=== PATIENT | female | born 1980 ===

== ENCOUNTER 2020-09-02 15:20 | Emergency (ER) | payer MEDICAID, SELFPAY ==
--- NOTE | ~2020-09-02 | XR_ITS ---
EXAMINATION: XR CHEST CLINICAL INFORMATION: Cough COMPARISON: 10/20/2017 TECHNIQUE: Frontal view of the chest was obtained. FINDINGS: Normal cardiac and mediastinal silhouette. Lungs are relatively symmetric expanded. No lobar consolidation. No effusion, edema or pneumothorax. No acute osseous abnormality. XR/XR chest 1V IMPRESSION: No evidence of acute disease.
[2020-09-02 15:38] VITALS: BP 120/82; PULSE 70; RESP 16; TEMP 37.2; O2SAT 98; BMI 37.8
--- NOTE | 2020-09-02 15:49 | ED.GENADULT ---
HPI - General Adult General Chief complaint: General Medical Stated complaint: Chest pain/Sore throat/Loose stools Time Seen by Provider: 09/02/20 15:44 Source: patient Mode of arrival: ambulatory Limitations: no limitations History of Present Illness HPI narrative: 40-year-old female here with PMH anxiety, depression, anemia with complaints of sore throat, dry cough, chest tightness, upper abdominal pain since yesterday. No nausea, vomiting, diarrhea, fevers, chills, shortness of breath, leg pain or swelling. Related Data Allergies Allergy/AdvReac Type Severity Reaction Status Date / Time No Known Allergies Allergy Verified 09/02/20 15:38 [No Known Allergies*] Review of Systems Review of Systems: Yes all other systems are reviewed and are negative Constitutional: Constitutional: Reports no additional constitutional complaints, Denies body ache(s), Denies chills, Denies fever(s), Denies headache(s) and Denies weakness Eyes: Eyes: Reports no additional eye complaints and Denies change in vision ENT: Reports system reviewed and no additional complaints, except as documented, Denies dizziness, Denies headache(s), Denies nasal congestion, Denies nasal discharge, Denies neck pain and Reports sore throat Cardiovascular: Cardiovascular: Reports no additional cardiovascular complaints, Reports chest pain (Tightness), Denies leg edema and Denies dyspnea Respiratory: Respiratory: Reports no additional respiratory complaints, Denies cough and Denies dyspnea Gastrointestinal: Gastrointestinal: Reports no additional gastrointestinal complaints, Reports abdominal pain, Denies diarrhea, Reports loose stools, Denies nausea and Denies vomiting Genitourinary: Genitourinary: Reports no additional female genitourinary complaints and Denies urinary incontinence Musculoskeletal: Musculoskeletal: Reports no additional musculoskeletal complaints, Denies back pain, Denies arthralgias, Denies joint swelling, Denies neck pain, Denies numbness and Denies tingling Integumentary/Breasts: Skin/Breast: Reports system reviewed and no additional complaints, except as docu and Denies rash Neurologic: Reports system reviewed and no additional complaints, except as documented, Denies Abnormal speech present, Denies dizziness, Denies headache(s), Denies numbness, Denies tingling and Denies weakness PMF Past Medical History Attestation statement: The following information was validated with the patient. Source: old records reviewed and nursing notes reviewed Medical History Anemia Anxiety Depression Social History Social History Advance Directives: No Advance Directives Information Provided: No Physical Exam Vital Signs: Vital Signs: Last Vital Signs Temp 98.1 F 09/02/20 16:37 Pulse 68 09/02/20 16:37 Resp 18 09/02/20 16:37 BP 104/56 L 09/02/20 16:37 Pulse Ox 98 09/02/20 16:37 Body Mass Index 37.8 Const: General: cooperative, healthy appearing, comfortable and no acute distress Orientation/consciousness: patient oriented x3 Limitations: no limitations HENMT: Head: Yes normal to inspection Ears: hearing grossly normal bilaterally General nose exam: Normal external nose present Face and sinus: Yes normal facial exam Mouth: Normal oral and palatal mucosa present Throat: Yes posterior oropharynx normal Eyes: General: appearance normal, both eyes and all related structures Pupils: Equal, round and reactive pupils present Neck: Neck: Yes normal visual inspection Chest: Chest palpation & inspection: normal inspection of the chest Resp: Effort & Inspection: normal respiratory effort Auscultation: clear to auscultation bilaterally Cardio: Rate: regular rate Rhythm: regular rhythm Peripheral pulses: Peripheral pulses 2+ throughout GI: Inspection: Yes normal to inspection Palpation (GI): Soft to palpation and Tenderness to palpation present (GI) (Mild epigastric tenderness with no rebound or guarding) Auscultation: normal bowel sounds Back/Spine/Pelvis: Thoracic/Lumbar Spine: thoracic and lumbar spine normal to inspection Skin: General skin exam: no rashes or lesions noted Neuro: General: patient oriented x3, no focal motor deficits and normal sensation to monofilament Cranial nerves: Yes Equal, round and reactive pupils present Cognition (Neuro): normal cognition Speech: No Abnormal speech present Gait exam (Neuro): Normal gait present Motor exam (neuro): 5/5 motor strength present throughout Extrem: General: Yes normal to inspection, Yes no pedal edema and Yes no calf tenderness Course Course Course Narrative: 40-year-old female here with complaints of chest tightness, cough, sore throat, upper abdominal discomfort x2 days. Exam she has mild epigastric tenderness with no rebound or guarding. She describes the pain as burning and worsened with eating. No associated nausea, vomiting, diarrhea. Also complaining of some chest tightness but no sharp pain. No shortness of breath associated or diaphoresis or nausea. No leg swelling or pain. Hemodynamically stable. Will need COVID swab, chest x-ray, COVID screen, GI cocktail 1620-Pt refusing EKG as she tells me she was seen at [facility] yesterday for similar symptoms and had a EKG which was unremarkable. 1730-chest x-ray shows no acute finding. COVID screen negative. Abdominal burning improved with GI cocktail. Likely viral syndrome. Patient has had symptoms for less than 2 days so recommended self-monitoring at home and retesting for COVID if she continues to have symptoms. Reviewed worrisome signs and symptoms when to return to the emergency department. Comfortable discharge home. Medical Decision Making MDM Narrative Medical decision making narrative: Viral syndrome, pneumonia, Medical Records Medical records reviewed: Yes I reviewed the patient's medical records. Lab Data Lab results reviewed: Yes I reviewed the patient's lab results. Labs: Lab Results 09/02/20 Range/Units 16:26 COVID-19 ([facility]) Negative (Negative) COVID-19 Clin Com See Note Imaging Data Chest x-ray: Attestation: I personally reviewed and interpreted this imaging study as follows: Radiologist's impression: LIZA CHAVEZ NP~ EXAMINATION: XR CHEST CLINICAL INFORMATION: Cough COMPARISON: 10/20/2017 TECHNIQUE: Frontal view of the chest was obtained. FINDINGS: Normal cardiac and mediastinal silhouette. Lungs are relatively symmetric expanded. No lobar consolidation. No effusion, edema or pneumothorax. No acute osseous abnormality. XR/XR chest 1V IMPRESSION: No evidence of acute disease. Discharge Plan Discharge Clinical Impression: Acute viral syndrome Patient Disposition: Home, Self-Care Instructions: Viral Syndrome (ED) Additional Instructions: Increase fluids, rest Motrin or Tylenol for pain as needed. Self monitor and if continue to have symptoms again retested for COVID Referrals: Physician,None [Primary Care Provider] - 2 days Stand Alone Forms: Work/School Release Interventions: ED Discharge Assessment Last Done: 09/02/20 17:07 Discharge Date/Time: 09/02/20 17:08
[2020-09-02 16:37] VITALS: BP 104/56; PULSE 68; RESP 18; TEMP 36.7; O2SAT 98
[2020-09-02] MEDS: Lidocaine HCl Viscous 2 % 15 ML SOLUTION MUCOUS MEM (16:37)
[2020-09-02] MEDS: Magnesium Hydrox/Alum Hydrox 30 ML ORAL.SUSP PO (16:37)
[2020-09-02 16:52] LABS: COVID-19 Test Negative (Negative)
== END 2020-09-02 17:08 | disposition home or self-care (01) ==
PROVIDERS: Nurse Practitioner Family; Emergency Provider Emergency Medicine
DX: R07.9 Chest pain, unspecified (principal); B34.9 Viral infection, unspecified; Z20.822 Contact with and (suspected) exposure to COVID-19; J02.9 Acute pharyngitis, unspecified
CPT/HCPCS: 36415; 71045; 87635; 99283

== ENCOUNTER 2020-09-17 11:44 | Emergency (ER) | payer MEDICAID, SELFPAY ==
--- NOTE | ~2020-09-17 | XR_ITS ---
EXAMINATION: XR CHEST CLINICAL INFORMATION: Chest pain COMPARISON: Chest radiographs 09/02/2020, 10/20/2017 TECHNIQUE: Portable upright AP view of the chest was obtained. FINDINGS: The lungs are clear. There is no pneumothorax, pleural reaction, airspace consolidation, or effusion. No hyperinflation. No pneumomediastinum. The heart is normal in size. The hilar and mediastinal contours and visualized bony structures are unremarkable. XR/XR chest 1V IMPRESSION: Unremarkable examination.
[2020-09-17 13:02] VITALS: BP 124/75; PULSE 68; RESP 18; TEMP 36.9; O2SAT 100; BMI 37.0
--- NOTE | 2020-09-17 13:06 | ED_ITS ---
HPI - URI/Sore Throat General Chief Complaint: Upper Respiratory Symptoms Stated Complaint: cough Time Seen by Provider: 09/17/20 13:00 Source: patient Mode of arrival: ambulatory Limitations: no limitations History of Present Illness HPI Narrative: 40-year-old female previously healthy here with cough, chills, chest tightness since last night. No shortness of breath, leg swelling or pain. No recent travel or sick contact. 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 She has not received her COVID vaccine to this point Related Data Allergies Allergy/AdvReac Type Severity Reaction Status Date / Time No Known Allergies Allergy Verified 09/02/20 15:38 [No Known Allergies*] Review of Systems Review of Systems: Yes all other systems are reviewed and are negative Constitutional: Constitutional: Reports no additional constitutional complaints, Denies body ache(s), Reports chills, Denies fever(s), Denies headache(s) and Denies weakness Eyes: Eyes: Reports no additional eye complaints and Denies change in vision ENT: Reports system reviewed and no additional complaints, except as documented, Denies dizziness, Denies headache(s), Denies nasal congestion, Denies nasal discharge and Denies neck pain Cardiovascular: Cardiovascular: Reports no additional cardiovascular complaints, Reports chest pain (Chest tightness), Denies leg edema and Denies dyspnea Respiratory: Respiratory: Reports no additional respiratory complaints, Reports cough and Denies dyspnea Gastrointestinal: Gastrointestinal: Reports no additional gastrointestinal complaints, Denies abdominal pain, Denies diarrhea, Denies nausea and Denies vomiting Genitourinary: Genitourinary: Reports no additional female genitourinary complaints and Denies urinary incontinence Musculoskeletal: Musculoskeletal: Reports no additional musculoskeletal complaints, Denies back pain, Denies arthralgias, Denies joint swelling, Denies neck pain, Denies numbness and Denies tingling Integumentary/Breasts: Skin/Breast: Reports system reviewed and no additional complaints, except as docu and Denies rash Neurologic: Denies Abnormal speech present, Denies dizziness, Denies headache(s), Denies numbness, Denies tingling and Denies weakness PMFSH Past Medical History Attestation statement: The following information was validated with the patient. Source: old records reviewed and nursing notes reviewed Medical History Anemia Anxiety Depression Social History Social History Advance Directives: No Advance Directives Information Provided: No Physical Exam Vital Signs: Vital Signs: Last Vital Signs Temp 98.5 F 09/17/20 13:02 Pulse 68 09/17/20 13:02 Resp 18 09/17/20 13:02 BP 124/75 09/17/20 13:02 Pulse Ox 100 09/17/20 13:02 Body Mass Index 37.0 Const: General: cooperative, healthy appearing, comfortable and no acute distress Orientation/consciousness: patient oriented x3 Limitations: no limitations HENMT: Head: Yes normal to inspection Ears: hearing grossly normal bilaterally General nose exam: Normal external nose present Face and sin us: Yes normal facial exam Mouth: Normal oral and palatal mucosa present Throat: Yes posterior oropharynx normal Eyes: General: appearance normal, both eyes and all related structures Pupils: Equal, round and reactive pupils present Neck: Neck: Yes normal visual inspection Chest: Other: tenderness to central chest Resp: Effort & Inspection: normal respiratory effort Auscultation: clear to auscultation bilaterally Cardio: Rate: regular rate Rhythm: regular rhythm Peripheral pulses: Peripheral pulses 2+ throughout GI: Inspection: Yes normal to inspection Palpation (GI): Soft to palpation and nontender Auscultation: normal bowel sounds Back/Spine/Pelvis: Thoracic/Lumbar Spine: thoracic and lumbar spine normal to inspection Skin: General skin exam: no rashes or lesions noted Neuro: General: patient oriented x3, no focal motor deficits and normal sensation to monofilament Cranial nerves: Yes Equal, round and reactive pupils present Cognition (Neuro): normal cognition Speech: No Abnormal speech present Gait exam (Neuro): Normal gait present Motor exam (neuro): 5/5 motor strength present throughout Extrem: General: Yes normal to inspection, Yes no pedal edema and Yes no calf tenderness Course Course Course Narrative: 40 yo female here with chest wall discomfort and tightness, cough, chills x 2 days. Will need EKG, CXR, COVID screen. 1400-chest x-ray negative. EKG unremarkable. COVID screen negative. Likely viral syndrome ?chest wall strain. Reviewed findings with the patient. 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 Reviewed worrisome signs and symptoms and when to return to the emergency department. Comfortable discharge home. MDM - URI/Sore Throat MDM Narrative Medical decision making narrative: Viral syndrome, pneumonia Less likely PE with PERC score 0 Medical Records Attestation: I reviewed the patient's medical records. Lab Data Attestation: I reviewed the patient's lab results. Labs: Lab Results 09/17/20 Range/Units 13:13 COVID-19 ([facility]) Negative (Negative) COVID-19 Clin Com See Note Imaging Data Chest x-ray: Attestation: I personally reviewed and interpreted this imaging study as follows: Radiologist's impression: EXAMINATION: XR CHEST CLINICAL INFORMATION: Chest pain COMPARISON: Chest radiographs 09/02/2020, 10/20/2017 TECHNIQUE: Portable upright AP view of the chest was obtained. FINDINGS: The lungs are clear. There is no pneumothorax, pleural reaction, airspace consolidation, or effusion. No hyperinflation. No pneumomediastinum. The heart is normal in size. The hilar and mediastinal contours and visualized bony structures are unremarkable. XR/XR chest 1V IMPRESSION: Unremarkable examination. ECG Data Attestation: I personally reviewed and interpreted this ECG as follows: ECG interpretation date: 09/17/20 ECG interpretation time: 13:28 Interpretation: NSR rate 60, normal pr, normal qrs, normal qtc Discharge Plan Discharge Clinical Impression: Viral infection Patient Disposition: Home, Self-Care Instructions: Viral Syndrome (ED) Additional Instructions: Increase fluids, rest Motrin or Tylenol for pain as needed You should quarantine for few more days and retest if you continue to have symptoms Your COVID test today was negative. Your chest x-ray shows no pneumonia and your EKG looks normal Referrals: Physician,None [Primary Care Provider] - 2 days Stand Alone Forms: Work/School Release Interventions: ED Discharge Assessment Last Done: 09/17/20 14:11 Discharge Date/Time: 09/17/20 14:19
--- NOTE | 2020-09-17 13:06 | ECG_ITS ---
Test Reason : CHEST PAIN Blood Pressure : / mmHG Vent. Rate : 060 BPM Atrial Rate : 060 BPM P-R Int : 152 ms QRS Dur : 074 ms QT Int : 410 ms P-R-T Axes : 020 000 000 degrees QTc Int : 410 ms Normal sinus rhythm Minimal voltage criteria for LVH, may be normal variant Borderline ECG When compared with ECG of 20-OCT-2017 22:16, Inverted T waves have replaced nonspecific T wave abnormality in Inferior leads Referred By: Lisa Brown Electronically Signed By:Ganga Moran
[2020-09-17] MEDS: Ibuprofen 600 MG TABLET PO (13:11)
[2020-09-17 13:42] LABS: COVID-19 Test Negative (Negative)
== END 2020-09-17 14:19 | disposition home or self-care (01) ==
PROVIDERS: Nurse Practitioner Family; Emergency Provider Emergency Medicine
DX: B34.9 Viral infection, unspecified (principal); Z20.822 Contact with and (suspected) exposure to COVID-19; R07.89 Other chest pain
CPT/HCPCS: 36415; 71045; 87635; 93005; 99283

== ENCOUNTER 2020-11-03 01:40 | Emergency (ER) | payer MEDICAID, SELFPAY ==
--- NOTE | ~2020-11-03 | CT_ITS ---
EXAMINATION: CT ABDOMEN AND PELVIS WITHOUT CONTRAST CLINICAL INFORMATION: diffuse abd pain, worse in epigastrium COMPARISON: None TECHNIQUE: Multidetector volumetric imaging was performed from the superior aspect of the liver through the pubic symphysis. Sagittal and coronal reformatted images were obtained on the technologist's workstation. This CT examination was performed using dose optimization techniques as appropriate, variously including the following: *Automated exposure control *Adjustment of mA and/or kV according to patient size (this includes techniques or standardized protocols for targeted exams where dose is matched to indication/reason for exam; i.e. extremities or head) *Use of iterative reconstruction technique DLP: 737 mGy-cm FINDINGS: LUNG BASES: The visualized lung bases are unremarkable. LIVER, GALLBLADDER, AND BILIARY TREE: The liver is normal in size, shape, and attenuation. No focal hepatic lesion or biliary ductal dilatation is present. The gallbladder is unremarkable with no evidence of radiopaque gallstones, gallbladder wall thickening, or obvious pericholecystic inflammatory changes. PANCREAS: Unremarkable. SPLEEN: Unremarkable. ADRENAL GLANDS: Unremarkable. KIDNEYS AND URETERS: The kidneys are normal in size, shape, and attenuation. No hydronephrosis, hydroureter, or calculi seen. No perinephric stranding. BLADDER: Unremarkable. GASTROINTESTINAL TRACT: There is a lap band with an abnormal finding angle of 72.5 degrees. There is eccentric dilatation of the gastric pouch, suggestive of lap band slippage. Stomach, small bowel, and colon are normal in caliber. No bowel wall thickening. Appendix is normal. No intraperitoneal free air or free fluid. ABDOMINAL WALL: Small fat-containing umbilical hernia. LYMPH NODES: Normal. VASCULAR: Unremarkable. PELVIC VISCERA: The uterus and adnexa are unremarkable. OSSEOUS STRUCTURES: No acute osseous findings. CT/CT abdomen pelvis wo con IMPRESSION: Abnormal positioning of the laparoscopic gastric band with a second dilatation of the gastric pouch, suggestive of lap band slippage. Otherwise, no acute intra-abdominal or intrapelvic abnormalities are identified. Small fat-containing umbilical hernia.
--- NOTE | 2020-11-03 02:17 | ED_ITS ---
HPI - Abdominal Pain General Chief Complaint: Abdominal Pain Stated Complaint: Abdominal Pain Time Seen by Provider: 11/03/20 01:59 Source: patient Mode of arrival: ambulatory Limitations: no limitations History of Present Illness HPI narrative: patient comes emergency room complaining of 3-4 days of abdominal pain. No nausea vomiting, no diarrhea. Patient states is intermittent, epigastric, sometimes diffuse. Patient denies fever chills, no URI symptoms, no UTI symptoms, denies chest pain or shortness of breath. Related Data Previous Rx's Medication Instructions Recorded tramadol 50 mg PO BID PRN #7 tab 11/03/20 Allergies Allergy/AdvReac Type Severity Reaction Status Date / Time No Known Allergies Allergy Verified 09/02/20 15:38 [No Known Allergies*] Review of Systems Review of Systems Constitutional : No Weight loss, No Fever, No Chills, No Night Sweats, No Fatigue, No Malaise ENT/Mouth : No Hearing loss, No Ear Pain, No Nasal Congestion, No Sinus Pain, No Hoarseness, No sore throat, No Rhinorrhea, No Swallowing Difficulty Eyes: No Eye Pain, No Swelling, No Redness, No Foreign Body, No Discharge, No Vision Changes Cardiovascular : No Chest Pain, No SOB, No Dyspnea on Exertion, No Orthopnea, No Edema, No Palpitations Respiratory : No Cough, No Sputum, No Wheezing, No Smoke Exposure, No Dyspnea Gastrointestinal : No Nausea, No Vomiting, No Diarrhea, No Constipation, Complaining of epigastric pain, sometimes diffuse pain No Hematochezia, No Melena Genitourinary : no irregular bleeding, No Dysuria, No Urinary Frequency, No Hematuria, No Urinary Incontinence, No Urgency, No Flank Pain, No Urinary Flow Changes, No Hesitancy Musculoskeletal : No joint pain, No Myalgias, No Joint Swelling Skin : No Skin Lesions, No rash Neuro : No Weakness, No Numbness, No Paresthesias, No Loss of Consciousness, No Dizziness, No Headache Psych : No Anxiety/Panic, No Depression, No SI/HI/AH/VH, No Social Issues, Heme/Lymph: No Bruising, No Bleeding,No Lymphadenopathy Endocrine : No Polyuria, No Polydipsia, No Temperature Intolerance Physical Exam Vital Signs: Vital Signs: Last Vital Signs Temp 98.3 F 11/03/20 02:20 Pulse 70 11/03/20 04:00 Resp 15 11/03/20 04:00 BP 134/93 H 11/03/20 04:00 Pulse Ox 99 11/03/20 04:00 Body Mass Index 36.8 Appearance: Alert. Oriented X3. No acute distress. Eyes: Pupils equal, round and reactive to light. ENT: Pharynx normal. Neck: Normal inspection. Neck supple. No lymph nodes noted. No crepitus CVS: Normal heart rate and rhythm. Pulses normal. Normal S1 and S2 Respiratory: No respiratory distress. Breath sounds normal. No Wheezing. No rales Abdomen: Soft , tenderness to palpation diffusely, seems worse at the epigastric area. No rigidity. No distention. Skin: Skin warm and dry. Normal skin color. Normal skin turgor. Extremities: No lower extremity edema. No lower extremity edema. No Lacerations. No Rash Neuro: Oriented X 3. No motor deficit. No sensory deficit. Moving all exterm ities. No slurred speech. Course Course Course Narrative: I discussed with the patient the CT findings. I also spoke with Tali Marinelli from bariatric surgery who spoke to Dr. Castellanos. Pt's ba nd needs t ocome out, but not emergent. Recs: ingest only shakes an liquids for the next couple of days and f/u with her surgeon or Dr. Aquino. at this time, pt feeling better, understands plan. MDM - Abdominal Pain Lab Data Result diagrams: 11/03/20 03:00 11/03/20 03:00 Labs: Lab Results 11/03/20 11/03/20 11/03/20 Range/Units 03:00 03:00 03:00 WBC 7.4 (4.8-10.8) X10*3/uL RBC 4.75 (4.20-5.50) X10*6/uL Hgb 13.2 (12.0-16.0) g/dl Hct 41.1 (37-47) % MCV 86.5 (80-98) fL MCH 27.8 (27.0-33.0) pg MCHC 32.1 (31.0-35.0) g/dl RDW 13.3 (11.0-16.0) % Plt Count 210 (160-400) X10*3/uL MPV 9.3 L (9.4-12.3) fL Immature Gran % (Auto) 0.5 H (0.0-0.4) % Neut % (Auto) 58.7 (45-73) % Lymph % (Auto) 32.3 (20-40) % Charlton % (Auto) 6.5 (2-11) % Eos % (Auto) 1.6 (0-4) % Baso % (Auto) 0.4 (0-2) % Lymph # (Auto) 2.4 (1.2-4.9) X10*3/uL [place] # (Auto) 0.5 (0.1-1.2) X10*3/uL Eos # (Auto) 0.1 (0.0-0.4) X10*3/uL Baso # (Auto) 0.0 (0.0-0.2) X10*3/uL Abs Immat Gran (auto) 0.04 H (0.00-0.03) X10*3/uL Absolute Neuts (auto) 4.3 (2.0-8.3) X10*3/uL Absolute Nucleated RBC 0.000 (0.0-0.012) X10*3/uL Nucleated RBC % (auto) 0.0 (0.0-0.2) /100WBC Sodium 138 (135-145) mmol/L Potassium 3.9 (3.3-5.1) mmol/L Chloride 106 (96-108) mmol/L Carbon Dioxide 24 (22-29) mmol/L Anion Gap 12 (12-20) BUN 15 (9-16) mg/dL Creatinine 0.85 (0.5-1.4) mg/dL Estim Creat Clear Calc 88.1 Estimated GFR > 60 Random Glucose 83 (60-115) mg/dL Calcium 9.0 (8.4-10.2) mg/dL Total Bilirubin < 0.2 (0.0-1.0) mg/dL Direct Bilirubin < 0.2 (0.0-0.5) mg/dL AST 17 (5-31) U/L ALT 7 (0-31) U/L Alkaline Phosphatase 72 (39-117) U/L Total Protein 7.1 (6.5-8.0) g/dL Albumin 4.2 (3.5-5.0) g/dL Lipase 33 (8-78) U/L Urine Color YELLOW Urine Appearance CLEAR Urine pH 5.5 (5.0-8.0) Ur Specific [place] >= 1.030 H (1.005-1.025) Urine Protein TRACE (NEG-TRACE) MG/DL Urine Glucose (UA) NEG (NEG) MG/DL Urine Ketones NEG (NEG) MG/DL Urine Blood NEG (NEG) Urine Nitrite NEG (NEG) Ur Leukocyte Esterase NEG (NEG) Urine Test (NEGATIVE) 11/03/20 Range/Units 03:00 WBC (4.8-10.8) X10*3/uL RBC (4.20-5.50) X10*6/uL Hgb (12.0-16.0) g/dl Hct (37-47) % MCV (80-98) fL MCH (27.0-33.0) pg MCHC (31.0-35.0) g/dl RDW (11.0-16.0) % Plt Count (160-400) X10*3/uL MPV (9.4-12.3) fL Immature Gran % (Auto) (0.0-0.4) % Neut % (Auto) (45-73) % Lymph % (Auto) (20-40) % Charl[place] % (Auto) (2-11) % Eos % (Auto) (0-4) % Baso % (Auto) (0-2) % Lymph # (Auto) (1.2-4.9) X10*3/uL [place] # (Auto) (0.1-1.2) X10*3/uL Eos # (Auto) (0.0-0.4) X10*3/uL Baso # (Auto) (0.0-0.2) X10*3/uL Abs Immat Gran (auto) (0.00-0.03) X10*3/uL Absolute Neuts (auto) (2.0-8.3) X10*3/uL Absolute Nucleated RBC (0.0-0.012) X10*3/uL Nucleated RBC % (auto) (0.0-0.2) /100WBC Sodium (135-145) mmol/L Potassium (3.3-5.1) mmol/L Chloride (96-108) mmol/L Carbon Dioxide (22-29) mmol/L Anion Gap (12-20) BUN (9-16) mg/dL Creatinine (0.5-1.4) mg/dL Estim Creat Clear Calc Estimated GFR Random Glucose (60-115) mg/dL Calcium (8.4-10.2) mg/dL Total Bilirubin (0.0-1.0) mg/dL Direct Bilirubin (0.0-0.5) mg/dL AST (5-31) U/L ALT (0-31) U/L Alkaline Phosphatase (39-117) U/L Total Protein (6.5-8.0) g/dL Albumin (3.5-5.0) g/dL Lipase (8-78) U/L Urine Color Urine Appearance Urine pH (5.0-8.0) Ur Specific [place] (1.005-1.025) Urine Protein (NEG-TRACE) MG/DL Urine Glucose (UA) (NEG) MG/DL Urine Ketones (NEG) MG/DL Urine Blood (NEG) Urine Nitrite (NEG) Ur Leukocyte Esterase (NEG) Urine Test NEGATIVE (NEGATIVE) Imaging Data CT scan - abdomen: Radiologist's impression: FINDINGS: LUNG BASES: The visualized lung bases are unremarkable. LIVER, GALLBLADDER, AND BILIARY TREE: The liver is normal in size, shape, and attenuation. No focal hepatic lesion or biliary ductal dilatation is present. The gallbladder is unremarkable with no evidence of radiopaque gallstones, gallbladder wall thickening, or obvious pericholecystic inflammatory changes. PANCREAS: Unremarkable. SPLEEN: Unremarkable. ADRENAL GLANDS: Unremarkable. KIDNEYS AND URETERS: The kidneys are normal in size, shape, and attenuation. No hydronephrosis, hydroureter, or calculi seen. No perinephric stranding. BLADDER: Unremarkable. GASTROINTESTINAL TRACT: There is a lap band with an abnormal finding angle of 72.5 degrees. There is eccentric dilatation of the gastric pouch, suggestive of lap band slippage. Stomach, small bowel, and colon are normal in caliber. No bowel wall thickening. Appendix is normal. No intraperitoneal free air or free fluid. ABDOMINAL WALL: Small fat-containing umbilical hernia. LYMPH NODES: Normal. VASCULAR: Unremarkable. PELVIC VISCERA: The uterus and adnexa are unremarkable. OSSEOUS STRUCTURES: No acute osseous findings. CT/CT abdomen pelvis wo con IMPRESSION: Abnormal positioning of the laparoscopic gastric band with a second dilatation of the gastric pouch, suggestive of lap band slippage. Otherwise, no acute intra-abdominal or intrapelvic abnormalities are identified. Small fat-containing umbilical hernia. Discharge Plan Discharge Clinical Impression: Abdominal pain Qualifiers: Abdominal location: epigastric Qualified Code(s): R10.13 - Epigastric pain Patient Disposition: Home, Self-Care Instructions: Abdominal Pain (ED) Additional Instructions: please follow up with your bariatric surgeon. for the next 2-3 days, only ingest protein shakes and fluids. You may also follow up with Dr. Aquino, please call [phone] to schedule and appointment. Please follow-up with your primary care physician tomorrow. If you have any worsening or new symptoms, please return to the emergency room or call 911 Prescriptions: New tramadol 50 mg tablet 50 mg PO BID PRN (Reason: pain) Qty: 7 RF: 0 Referrals: Priscilla Aquino MD [Physician] - 2 days PMF Past Medical History Medical History Anemia Anxiety Depression Social History Social History Alcohol intake: unknown Patient Tobacco Use Status: Tobacco use Unknown Use of substances other than those prescribed or required for medical reasons: Unknown Advance Directives: No Patient : No
[2020-11-03 02:20] VITALS: BP 124/63; PULSE 74; RESP 15; TEMP 36.8; O2SAT 99; BMI 36.8
--- NOTE | 2020-11-03 02:47 | PC.NURSE ---
Patient was asked to change into gown so that I may place an IV. When I went back into the room she had not changed over and I asked again. Patient was on the speaker phone when I walked back into room. I asked the patient to please call whoever she was speaking to back and she said no. Why do I have to get off the phone. I stated that I do not want to be recorded while I am placing an IV. Patient refused and I left the room and asked another nurse to place the IV.
[2020-11-03 03:06] LABS: Glucose Urine UA NEG (NEG); Leukocyte Esterase Urine NEG (NEG); MANUAL DIFF FLAG NO; Nitrite Urine NEG (NEG); PH 5.5 (5.0-8.0); Specific Gravity - Urine >= 1.030 (1.005-1.025); Urine Blood NEG (NEG); Urine Ketones NEG (NEG); Urine Protein TRACE MG/DL (NEG-TRACE)
[2020-11-03 03:07] LABS: Basophils Percent Auto 0.4 % (0-2); Eosinophils Absolute Auto 0.1 X10*3/uL (0.0-0.4); Eosinophils Percent Auto 1.6 % (0-4); Hematocrit 41.1 % (37-47); Hemoglobin 13.2 g/dl (12.0-16.0); Imm Gran Abs Auto 0.04 X10*3/uL (0.00-0.03); Imm Gran Pct Auto 0.5 % (0.0-0.4); Lymphocytes Absolute Auto 2.4 X10*3/uL (1.2-4.9); Lymphocytes Percent Auto 32.3 % (20-40); Mean Corpuscular HGB Conc 32.1 g/dl (31.0-35.0); Mean Corpuscular Hemoglobin 27.8 pg (27.0-33.0); Mean Corpuscular Volume 86.5 fL (80-98); Mean Platelet Volume 9.3 fL (9.4-12.3); Monocytes Absolute Auto 0.5 X10*3/uL (0.1-1.2); Monocytes Percent Auto 6.5 % (2-11); Neutrophils Absolute Auto 4.3 X10*3/uL (2.0-8.3); Neutrophils Percent Auto 58.7 % (45-73); Platelet Count 210 X10*3/uL (160-400); Red Blood Count 4.75 X10*6/uL (4.20-5.50); Red Cell Distribution Width 13.3 % (11.0-16.0); White Blood Count 7.4 X10*3/uL (4.8-10.8)
[2020-11-03 03:08] LABS: Appearance Urine CLEAR; Color Urine YELLOW
[2020-11-03 03:12] LABS: UPreg QC Valid YES; Urine Pregnancy NEGATIVE (NEGATIVE)
[2020-11-03 03:41] LABS: Alanine Aminotransferase 7 U/L (0-31); Albumin Level 4.2 g/dL (3.5-5.0); Alkaline Phosphatase 72 U/L (39-117); Anion Gap 12 (12-20); Aspartate Amino Transferase 17 U/L (5-31); Bilirubin Direct < 0.2 mg/dL (0.0-0.5); Bilirubin Total < 0.2 mg/dL (0.0-1.0); Blood Urea Nitrogen 15 mg/dL (9-16); Carbon Dioxide 24 mmol/L (22-29); Chloride 106 mmol/L (96-108); Creatinine Clr Calc Pharmacy 88.1; Estimated Glomerular Filt Rate > 60; Glucose Random 83 mg/dL (60-115); Lipase 33 U/L (8-78); Potassium 3.9 mmol/L (3.3-5.1); Sodium 138 mmol/L (135-145); Total Protein 7.1 g/dL (6.5-8.0)
[2020-11-03 04:00] VITALS: BP 134/93; PULSE 70; RESP 15; O2SAT 99
--- NOTE | 2020-11-03 04:31 | PC.NURSE ---
Addendum entered by Georgina Morrison 11/03/20 04:57: MD to consult with out bariatric surgery Original Note: Patient states that she had a lap band procedure in 2005. Patient's cat scan show that her lap band might have slipped and it is malplaced.
--- NOTE | 2020-11-03 04:50 | PC.NURSE ---
Second call out to [facility] at 0440,awaiting for response back for Dr. Nguyen
--- NOTE | 2020-11-03 05:32 | PC.NURSE ---
Third attempt to bariatrics services at 0530.
--- NOTE | 2020-11-03 05:46 | PC.NURSE ---
Received call at 0544 from bariatric services.
== END 2020-11-03 07:02 | disposition home or self-care (01) ==
PROVIDERS: Emergency Provider Emergency Medicine
DX: R10.13 Epigastric pain (principal)
CPT/HCPCS: 36415; 74176; 80048; 80076; 81003; 81025; 83690; 85025; 99284

== ENCOUNTER 2020-12-04 13:49 | Emergency (ER) | payer MEDICAID, SELFPAY ==
--- NOTE | ~2020-12-04 | XR_ITS ---
EXAMINATION: XR HAND, LEFT CLINICAL INFORMATION: Hand injury. COMPARISON: None TECHNIQUE: PA, lateral, and oblique views of the left hand. FINDINGS: The bones and soft tissues are normal. No fracture. Alignment is anatomic. Joint spaces are maintained. No erosions or soft tissue calcifications. XR/XR hand LT min 3V IMPRESSION: Unremarkable left hand exam except
[2020-12-04 14:00] VITALS: BP 104/73; PULSE 62; RESP 18; TEMP 36.6; O2SAT 100; BMI 37.8
--- NOTE | 2020-12-04 14:53 | ED.EXTPRO ---
HPI - Extremity Problem General Chief complaint: Extremity Injury, Upper Stated complaint: fall. pt hurt finger Time Seen by Provider: 12/04/20 14:53 History of Present Illness HPI Narrative: Patient complains of pain in left index and left middle finger for several days, she injured them 2 months ago and they never fully got better and has had intermittent pain in those 2 fingers no new injury no fever no chills no numbness or weakness Related Data Previous Rx's Medication Instructions Recorded tramadol 50 mg tablet 50 mg PO BID PRN #7 tab 11/03/20 Allergies Allergy/AdvReac Type Severity Reaction Status Date / Time No Known Allergies Allergy Verified 12/04/20 13:59 [No Known Allergies*] Review of Systems Review of Systems: Positive for left 2nd and 3rd finger pain Negative no fever no chills no redness no discharge no numbness weakness or tingling no skin rash Yes all other systems are reviewed and are negative PMFSH Past Medical History Source: nursing notes reviewed Medical History Anemia Anxiety Depression Social History Social History Alcohol intake: unknown Patient Tobacco Use Status: Tobacco use Unknown Advance Directives: Yes Advance Directives Information Provided: No Advance Directives on File: No Patient : No Physical Exam Vital Signs: Vital Signs: Last Vital Signs Temp 97.9 F 12/04/20 14:00 Pulse 62 12/04/20 14:00 Resp 18 12/04/20 14:00 BP 104/73 12/04/20 14:00 Pulse Ox 100 12/04/20 14:00 Body Mass Index 37.8 General appearance no acute distress Head is normocephalic atraumatic Neck is supple Respiratory no distress Left hand exam the left index finger has full range of motion and has some tenderness over the middle phalanx and seems to have normal full tendon function and is neurovascular intact distal The left 3rd finger had some swelling over the proximal phalanx it had good range of motion good flexion and extension, there was no redness no wound, neurovascular intact distal Rest of left hand exam is normal Skin no rashes No motor or sensory deficit Course Course Course Narrative: On physical exam there was no sign of any infection, tendon function seems to be normal and x-ray of the hand and the index and middle finger were negative Discharge Plan Discharge Clinical Impression: Hand pain Qualifiers: Laterality: left Qualified Code(s): M79.642 - Pain in left hand Finger sprain Qualifiers: Finger: index finger Laterality: left Patient Disposition: Home, Self-Care Additional Instructions: X-ray did not show any abnormality Your exam did not show any sign of any infection Follow with hand specialist for further evaluation Return any time any worse condition or concerns Prescriptions: No Action tramadol 50 mg tablet 50 mg PO BID PRN (Reason: pain) Qty: 7 RF: 0 Referrals: Karina Dickinson MD [Physician] - 2 days (Continued pain 1 month after injury of left 2nd and 3rd fingers) Stand Alone Forms: Work/School Release
== END 2020-12-04 15:19 | disposition home or self-care (01) ==
PROVIDERS: Emergency Provider Emergency Medicine
DX: M79.642 Pain in left hand (principal)
CPT/HCPCS: 73130; 99283

== ENCOUNTER 2020-12-25 02:19 | Emergency (ER) | payer MEDICAID, SELFPAY ==
[2020-12-25 03:29] VITALS: BP 129/83; PULSE 76; RESP 18; TEMP 36.2; O2SAT 100; BMI 36.8
== END 2020-12-25 05:11 | disposition left against medical advice (07) ==
PROVIDERS: Emergency Provider Emergency Medicine
DX: T14.8XXA Other injury of unspecified body region, initial encounter (principal); W55.01XA Bitten by cat, initial encounter; Y93.9 Activity, unspecified; Y92.9 Unspecified place or not applicable; Y99.9 Unspecified external cause status
CPT/HCPCS: 99281; 99282

== ENCOUNTER 2021-01-05 03:28 | Emergency (ER) | payer MEDICAID, SELFPAY ==
[2021-01-05 03:34] VITALS: BP 123/83; PULSE 92; RESP 16; TEMP 36.7; O2SAT 99; BMI 37.8
--- NOTE | 2021-01-05 05:26 | ED_ITS ---
HPI - Animal Bite General Chief Complaint: Animal Bite Stated Complaint: animal bite Time Seen by Provider: 01/05/21 05:26 Source: patient Mode of arrival: ambulatory History of Present Illness HPI narrative: 40-year-old female who reports cat bite by her own cat approximately 2 weeks ago to the back of the left lower leg and now reports that is swollen with purulence drainage. Patient was limping and triage. Patient reports that cat is fully vaccinated Related Data Previous Rx's Medication Instructions Recorded tramadol 50 mg tablet 50 mg PO BID PRN #7 tab 11/03/20 amoxicillin 875 mg-potassium 1 tab PO Q12H 7 Days #14 tab 01/05/21 clavulanate 125 mg tablet (Augmentin) Allergies Allergy/AdvReac Type Severity Reaction Status Date / Time No Known Allergies Allergy Verified 01/05/21 03:34 [No Known Allergies*] Review of Systems Review of Systems: Pertinent positives and negatives as stated in HPI 10 point review of systems otherwise negative. PMFSH Past Medical History Medical History Anemia Anxiety Depression Social History Social History Alcohol intake: unknown Patient Tobacco Use Status: Tobacco use Unknown Advance Directives: No Advance Directives Information Provided: No Patient : No Physical Exam Vital Signs: Vital Signs: Last Vital Signs Temp 98.1 F 01/05/21 03:34 Pulse 92 01/05/21 03:34 Resp 16 01/05/21 03:34 BP 123/83 01/05/21 03:34 Pulse Ox 99 01/05/21 03:34 Body Mass Index 37.8 VITAL SIGNS: Reviewed. GENERAL: Well developed, well nourished, in no acute distress. HEAD: Normocephalic/atraumatic EYES: PERRLA, EOMI OROPHARYNX: no oral lesions noted, posterior pharynx clear LUNGS: Normal breath sounds. No adventitious sounds or accessory muscle use. SpO2<99> CARDIOVASCULAR: Regular rate and rhythm without noted murmurs ABDOMEN: Soft, non-tender, non-distended with bowel sounds. LEFT LOWER LEG: Evidence of well-healing cap bite but underlying hard nodules, no alexandr purulence noted no erythema SKIN: Inspection of the skin reveals no rashes NEUROLOGIC: Alert and oriented x 4. Course Course Course Narrative: 40-year-old female with history and clinical presentation consistent with cat bite and now has persistent swollen, although no appreciation of pus at this time there is induration without erythema and will start patient on a course of antibiotics with recommendations for her to follow- up with primary care provider. Discharge Plan Discharge Clinical Impression: Cat bite Patient Disposition: Home, Self-Care Instructions: Animal Bite (ED) Additional Instructions: 1. Complete the entire course of antibiotics. 2. Follow-up with your primary care provider in the next 2-3 days. Return to the ER for acute worsening of symptoms. Prescriptions: New amoxicillin-pot clavulanate [Augmentin] 875-125 mg tablet 1 tab PO Q12H 7 Days Qty: 14 RF: 0 No Action tramadol 50 mg tablet 50 mg PO BID PRN (Reason: pain) Qty: 7 RF: 0 Referrals: Physician,Unknown [Primary Care Provider] - 2 days
[2021-01-05] MEDS: Amoxicillin/Potassium Clav 875 MG TABLET PO (05:36)
== END 2021-01-05 06:18 | disposition home or self-care (01) ==
PROVIDERS: Emergency Provider Student in an Organized Health Care Education/Training Program
DX: S80.872A Other superficial bite, left lower leg, initial encounter (principal); M79.662 Pain in left lower leg; W55.01XA Bitten by cat, initial encounter; Y93.9 Activity, unspecified; Y92.009 Unspecified place in unspecified non-institutional (private) residence as the place of occurrence of the external cause; Y99.9 Unspecified external cause status; Z79.899 Other long term (current) drug therapy
CPT/HCPCS: 99283

== ENCOUNTER 2021-05-29 16:31 | Outpatient (REF) | payer OTHER, SELFPAY | END 2021-05-29 16:32 | disposition home or self-care (01) | LOC: HO.LNP 16:31 | PROVIDERS: Visit Provider Nurse Practitioner Family | DX: Z20.822 Contact with and (suspected) exposure to COVID-19 (principal) | CPT/HCPCS: U0003; U0005 ==

== ENCOUNTER 2021-07-18 15:59 | Emergency (ER) | payer OTHER, SELFPAY | END 2021-07-18 17:10 | disposition left against medical advice (07) | LOC: HO.ED 16:58 | PROVIDERS: Emergency Provider Emergency Medicine; PCP Nurse Practitioner Family | DX: M25.562 Pain in left knee (principal) ==

== ENCOUNTER 2021-09-02 10:21 | Outpatient (REF) | payer OTHER, SELFPAY ==
[2021-09-03 05:26] LABS: CT PCR NOT DETECTED (Not Detect.); NG PCR NOT DETECTED (Not Detect.)
[2021-09-03 10:52] LABS: BV Int Neg Control Negative (Negative); BV Int Pos Control Positive (Positive)
[2021-09-05 09:16] LABS: HPV mRNA E6/E7 rflx Not Detected (Not Detected)
== END 2021-09-02 10:22 | disposition home or self-care (01) ==
LOC: HO.LAB 10:21
PROVIDERS: PCP Nurse Practitioner Family; Visit Provider Advanced Practice Midwife
DX: Z01.411 Encounter for gynecological examination (general) (routine) with abnormal findings (principal); Z11.51 Encounter for screening for human papillomavirus (HPV); R32 Unspecified urinary incontinence; N95.0 Postmenopausal bleeding; N64.4 Mastodynia
CPT/HCPCS: 81003; 87086; 87480; 87491; 87510; 87591; 87624; 87660; 88142

== ENCOUNTER 2021-09-12 14:41 | Outpatient (REF) | payer OTHER, SELFPAY ==
--- NOTE | ~2021-09-12 | US_ITS ---
EXAMINATION: US DIAGNOSTIC ULTRASOUND BREAST, RIGHT CLINICAL INFORMATION: Right breast pain and lump. COMPARISON: Mammography of same day and studies dating back to February 13, 2015. TECHNIQUE: Ultrasound of the breast is performed with real-time vasques scale imaging and color Doppler. Region of abnormality was approximately 7 to 10:00 position. FINDINGS: There is no focal suspicious finding. There is no solid mass, architectural abnormality, duct ectasia, or edema in the soft tissue planes. Results are discussed with the patient at time of visit. US/US breast RT limited IMPRESSION: No suspicious right breast ultrasound findings in region of patient's symptoms. ASSESSMENT: BI-RADS 1: Negative RECOMMENDATION: Routine annual mammography screening. This patient's information was entered into a reminder system with a target due date for their next mammogram.
--- NOTE | ~2021-09-12 | MM_ITS ---
EXAMINATION: MM DIAGNOSTIC DIGITAL BREAST TOMOSYNTHESIS, BILATERAL US BREAST, RIGHT CLINICAL INFORMATION: Mastodynia and question palpable lump right breast according to patient. Status post right breast lumpectomy. COMPARISON: Mammography: 06/18/2017 and studies dating back to 02/13/2015. TECHNIQUE: Digital breast tomosynthesis is performed in both the craniocaudal and mediolateral oblique views along with computer-aided detection (CAD). Synthesized 2D images are generated from the tomosynthesis. Targeted right breast ultrasound performed as well as exaggerated right breast craniocaudal view. FINDINGS: The breasts are almost entirely fatty (ACR BI-RADS breast composition Category a). There is a stable parenchymal pattern seen bilaterally without new abnormal dominant mass or suspicious grouping of microcalcifications. Postsurgical change about the upper outer aspect of the right breast is again noted. Targeted ultrasound evaluation in region of patient's pain and question lump did not demonstrate any abnormal cystic or solid mass. No region of abnormal distal sound shadowing appreciated. Results are discussed with the patient at time of visit. MM/MM tomosynthesis diagnostic BI IMPRESSION: There are no significant changes from prior study. ASSESSMENT: BI-RADS 2: Benign RECOMMENDATION: Routine annual mammography screening. This patient's information was entered into a reminder system with a target due date for their next mammogram.
== END 2021-09-12 14:42 | disposition home or self-care (01) ==
LOC: HO.MAMMO 14:41
PROVIDERS: PCP Nurse Practitioner Family; Visit Provider Nurse Practitioner Family
DX: N64.4 Mastodynia (principal)
CPT/HCPCS: 76642; 77062; 77066

== ENCOUNTER 2021-09-24 14:20 | Emergency (ER) | payer OTHER, SELFPAY ==
--- NOTE | ~2021-09-24 | US_ITS ---
EXAMINATION: US ABDOMEN LIMITED CLINICAL INFORMATION: Right-sided abdominal pain. COMPARISON: CT abdomen pelvis earlier today TECHNIQUE: Real-time imaging of the gallbladder and common bile. FINDINGS: GALLBLADDER: The gallbladder is physiologically distended without evidence of stones, sludge, polyps, wall thickening or pericholecystic fluid. COMMON BILE DUCT: Normal in caliber measuring 0.5 cm in diameter. US/US abdomen limited IMPRESSION: Normal-appearing gallbladder.
--- NOTE | ~2021-09-24 | CT_ITS ---
EXAMINATION: CT ABDOMEN AND PELVIS WITHOUT CONTRAST CLINICAL INFORMATION: Abdominal pain with question of bowel obstruction COMPARISON: CT abdomen pelvis 11/03/2020 TECHNIQUE: Multidetector volumetric imaging was performed from the superior aspect of the liver through the pubic symphysis. Sagittal and coronal reformatted images were obtained on the technologist's workstation. This CT examination was performed using dose optimization techniques as appropriate, variously including the following: *Automated exposure control *Adjustment of mA and/or kV according to patient size (this includes techniques or standardized protocols for targeted exams where dose is matched to indication/reason for exam; i.e. extremities or head) *Use of iterative reconstruction technique DLP: 869 mGy-cm FINDINGS: LUNG BASES: The visualized lung bases are unremarkable. LIVER, GALLBLADDER, AND BILIARY TREE: The liver is normal in size, shape, and attenuation. No focal hepatic lesion or biliary ductal dilatation is present. The gallbladder is unremarkable with no evidence of radiopaque gallstones, gallbladder wall thickening, or obvious pericholecystic inflammatory changes. PANCREAS: Unremarkable. SPLEEN: Unremarkable. ADRENAL GLANDS: Unremarkable. KIDNEYS AND URETERS: The kidneys are normal in size, shape, and attenuation. No hydronephrosis, hydroureter, or calculi seen. No perinephric stranding. BLADDER: Unremarkable. GASTROINTESTINAL TRACT: A lap band is present in similar position when compared with the prior 11/03/2020 CT scan.. The small and large bowel are unremarkable. The appendix is unremarkable. ABDOMINAL WALL: No significant hernia is appreciated. A periumbilical hernia seen containing only fat. LYMPH NODES: Normal. VASCULAR: Unremarkable. PELVIC VISCERA: Unremarkable. OSSEOUS STRUCTURES: Mild degenerative changes present from L4 through S1. CT/CT abdomen pelvis wo con IMPRESSION: There is no evidence of bowel obstruction. A definite etiology for the patient's abdominal pain has not been found. Fleischner guidelines were followed.
[2021-09-24 14:24] VITALS: BP 119/70; PULSE 83; RESP 18; TEMP 37.2; O2SAT 100; BMI 43.4
[2021-09-24 16:00] VITALS: BP 112/68; PULSE 71; RESP 18; TEMP 36; O2SAT 99
[2021-09-24 16:10] LABS: Alanine Aminotransferase 13 U/L (0-31); Albumin Level 3.9 g/dL (3.5-5.0); Alkaline Phosphatase 66 U/L (39-117); Anion Gap 12 (12-20); Aspartate Amino Transferase 20 U/L (5-31); Bilirubin Direct < 0.2 mg/dL (0.0-0.5); Bilirubin Total 0.4 mg/dL (0.0-1.0); Blood Urea Nitrogen 10 mg/dL (9-16); Calcium 9.6 mg/dL (8.4-10.2); Carbon Dioxide 26 mmol/L (22-29); Chloride 105 mmol/L (96-108); Creatinine Clr Calc Pharmacy 89.5; Estimated Glomerular Filt Rate > 60; Glucose Random 108 mg/dL (60-115); Influenza A Negative (Negative); Influenza B2 Negative (Negative); Potassium 4.7 mmol/L (3.3-5.1); Sodium 138 mmol/L (135-145); Total Protein 6.9 g/dL (6.5-8.0)
[2021-09-24 16:13] LABS: COVID-19 Test Negative (Negative)
[2021-09-24 16:14] LABS: HCG Quantitative < 2 mIU/mL
[2021-09-24 19:30] LABS: Basophils Percent Auto 0.1 % (0-2); Eosinophils Absolute Auto 0.2 X10*3/uL (0.0-0.4); Eosinophils Percent Auto 2.1 % (0-4); Hematocrit 38.3 % (37.0-47.0); Hemoglobin 12.2 g/dl (12.0-16.0); Imm Gran Abs Auto 0.06 X10*3/uL (0.00-0.03); Imm Gran Pct Auto 0.8 % (0.0-0.4); Lymphocytes Absolute Auto 1.7 X10*3/uL (1.2-4.9); Lymphocytes Percent Auto 21.7 % (20-40); Mean Corpuscular HGB Conc 31.9 g/dl (31.0-35.0); Mean Corpuscular Hemoglobin 26.1 pg (27.0-33.0); Mean Corpuscular Volume 81.8 fL (80.0-98.0); Mean Platelet Volume 9.2 fL (9.4-12.3); Monocytes Absolute Auto 0.4 X10*3/uL (0.1-1.2); Monocytes Percent Auto 5.2 % (2-11); Neutrophils Absolute Auto 5.4 x10*3/uL (2.0-8.3); Neutrophils Percent Auto 70.1 % (45-73); Platelet Count 258 X10*3/uL (160-400); Red Blood Count 4.68 X10*6/uL (4.20-5.50); Red Cell Distribution Width 15.6 % (11.0-16.0); White Blood Count 7.7 X10*3/uL (4.8-10.8)
[2021-09-24 20:02] LABS: Appearance Urine CLEAR; Color Urine YELLOW; Glucose Urine UA NEG (NEG); Leukocyte Esterase Urine NEG (NEG); Nitrite Urine NEG (NEG); PH 5.5 (5.0-8.0); Specific Gravity - Urine >= 1.030 (1.005-1.025); Urine Blood NEG (NEG); Urine Ketones NEG (NEG); Urine Protein TRACE MG/DL (NEG-TRACE)
[2021-09-24 20:03] LABS: UPreg QC Valid YES; Urine Pregnancy NEGATIVE (NEGATIVE)
[2021-09-24 21:32] VITALS: BP 125/51; PULSE 69; RESP 18; TEMP 36.3; O2SAT 100
--- NOTE | 2021-09-24 21:57 | ED_ITS ---
HPI - Abdominal Pain General Chief Complaint: Abdominal Pain Stated Complaint: obstruction abd Time Seen by Provider: 09/24/21 21:37 Source: patient Mode of arrival: ambulatory Limitations: no limitations History of Present Illness HPI narrative: 41-year-old female came in for evaluation of abdominal pain. Started the generalized abdominal pain for the past 3 days, pain was described as intermittent, moderate in severity 5/10, described as cramps and colics, associated with nausea and dizziness but no vomiting, patient self administered enema followed by a bowel movement with passing flatus. No fever or chills. Pain is not food related, mostly localized to the right side of the abdomen. Patient never had this pain in the past, surgical history is significant for laparoscopic gastric banding, . Patient declined using alcohol Related Data Previous Rx's Medication Instructions Recorded gabapentin 300 mg capsule 300 mg PO BID 90 Days #180 cap 05/29/21 venlafaxine 150 mg 150 mg PO DAILY 90 Days #90 cap 09/05/21 capsule,extended release 24 hr ketoconazole 2 % shampoo 1 appl TOPICAL 2XW 14 Days #120 ml 09/15/21 venlafaxine 75 mg capsule,extended 75 mg PO DAILY 90 Days #90 cap 09/15/21 release 24 hr omeprazole magnesium 20 mg 20 mg PO BID 10 Days #20 tab 09/24/21 tablet,delayed release (Prilosec OTC) Allergies Allergy/AdvReac Type Severity Reaction Status Date / Time No Known Allergies Allergy Verified 09/02/21 10:48 [No Known Allergies*] Review of Systems Review of Systems All other systems are reviewed and are negative Constitutional: Reports as per HPI and Reports no additional constitutional complaints Eyes: Reports as per HPI and Reports no additional eye complaints Reports system reviewed and no additional complaints, except as documented Cardiovascular: Reports as per HPI and Reports no additional cardiovascular complaints Respiratory: Reports as per HPI and Reports no additional respiratory complaints Gastrointestinal: Reports as per HPI and Reports no additional gastrointestinal complaints Genitourinary: Reports no additional female genitourinary complaints Musculoskeletal: Reports no additional musculoskeletal complaints Skin/Breast: Reports system reviewed and no additional complaints, except as docu Psychiatric: Reports no additional psychiatric complaints Endocrine: Reports no additional endocrine complaints Hematologic/Lymphatic: Reports no additional hematologic/lymphatic complaints Allergic/Immunologic: Reports no additional allergic/immunologic complaints Reports system reviewed and no additional complaints, except as documented and Reports Abnormal speech present PMFSH Past Medical History Medical History Anemia Anxiety Depression History of right breast cancer Surgical History History of lumpectomy of right breast Hx of section Hx of dilation and curettage Family History Family History Family/Other Colon cancer Maternal Uncle Lung cancer Father Prostate CA Social History Social History Housing: Apartment Alcohol intake: unknown Patient Tobacco Use Status: Never used Tobacco e-Cigarette/Vaping Use: Never Used Second Hand Smoke Exposure: No Advance Directives: No Advance Directives Information Provided: No service: No Current occupational status: employed Current occupation: [employer] Current occupational exposures/hazards: No Sexual orientation: Straight/Heterosexual Gender identity: Female Physical Exam ED Vital Signs: Vital Signs - 24 hr 09/24/21 14:24 09/24/21 16:00 09/24/21 21:32 Temperature 98.9 F 96.8 F 97.4 F Pulse Rate 83 71 69 Respiratory Rate 18 18 18 Blood Pressure 119/70 112/68 125/51 L Pulse Oximetry 100 99 100 BMI result Body Mass Index 43.4 Vital signs have been reviewed as appeared to be correct. Blood pressure normal. Heart rate normal. Respiration rate normal. Temperature normal. Oxygen saturation normal. Appearance: Alert. Oriented X3. No acute distress. Head: Normal external exam. Normocephalic. Atraumatic. No Lance signs noted. No raccoon eyes noted Eyes: PERRLA. EOMI. Conjunctiva and sclera normal. Eyelids normal. ENT: TM's Normal. Pharynx normal. Uvula midline. Moist mucous membranes. No trismus noted. No drooling noted. No muffled voice noted. Neck: Normal inspection. Neck supple. FROM. No adenopathy. Thyroid Normal. No meningeal signs. No neck mass noted. CVS: Normal heart rate and rhythm. Heart sound normal. No murmurs noted. Pulses normal throughout. Respiratory: No respiratory distress. Painless inspiration. Breath sounds normal. No wheezes/rales/rhonchi noted. Chest nontender. No accessory muscle usage noted or decreased air movement noted. Abdomen: Soft and nontender. Bowel sounds normal in all 4 quadrants. No distention noted. No organomegaly noted. No visible injury noted. Back: No CVA tenderness. Full range of motion noted. Skin: Skin warm and dry. Normal skin color. Normal skin turgor. No rashes/lesions/lacerations noted. Extremities: No lower extremity edema. Extremities exhibit normal range of motion. Extremities nontender. Neuro: Oriented X 3. Cranial nerve exam: II-XII are grossly intact No motor deficit. No sensory deficit. Reflexes normal. Course Course Course Narrative: Assessment and plan. 41-year-old female came in with right-sided abdominal pain, pain improved with Pepcid and IV fluid, unremarkable CT abdomen pelvis/labs/ultrasound. Will reassure, clear diet for the next 2-3 days advance as tolerated, drink fluids, follow-up with PCP. MDM - Abdominal Pain Lab Data Attestation: I reviewed the patient's lab results. Result diagrams: 09/24/21 19:23 09/24/21 15:44 Labs: Lab Results 09/24/21 09/24/21 09/24/21 Range/Units 15:44 15:44 15:44 WBC (4.8-10.8) X10*3/uL RBC (4.20-5.50) X10*6/uL Hgb (12.0-16.0) g/dl Hct (37.0-47.0) % MCV (80.0-98.0) fL MCH (27.0-33.0) pg MCHC (31.0-35.0) g/dl RDW (11.0-16.0) % Plt Count (160-400) X10*3/uL MPV (9.4-12.3) fL Immature Gran % (Auto) (0.0-0.4) % Neut % (Auto) (45-73) % Lymph % (Auto) (20-40) % Armstrong % (Auto) (2-11) % Eos % (Auto) (0-4) % Baso % (Auto) (0-2) % Lymph # (Auto) (1.2-4.9) X10*3/uL Armstrong # (Auto) (0.1-1.2) X10*3/uL Eos # (Auto) (0.0-0.4) X10*3/uL Baso # (Auto) (0.0-0.2) X10*3/uL Abs Immat Gran (auto) (0.00-0.03) X10*3/uL Absolute Neuts (auto) (2.0-8.3) x10*3/uL Absolute Nucleated RBC (0.0-0.012) X10*3/uL Nucleated RBC % (auto) (0.0-0.2) /100WBC Sodium 138 (135-145) mmol/L Potassium 4.7 D (3.3-5.1) mmol/L Chloride 105 (96-108) mmol/L Carbon Dioxide 26 (22-29) mmol/L Anion Gap 12 (12-20) BUN 10 (9-16) mg/dL Creatinine 0.91 (0.5-1.4) mg/dL Estim Creat Clear Calc 89.5 Estimated GFR > 60 Random Glucose 108 (60-115) mg/dL Calcium 9.6 D (8.4-10.2) mg/dL Total Bilirubin 0.4 (0.0-1.0) mg/dL Direct Bilirubin < 0.2 (0.0-0.5) mg/dL AST 20 (5-31) U/L ALT 13 (0-31) U/L Alkaline Phosphatase 66 (39-117) U/L Total Protein 6.9 (6.5-8.0) g/dL Albumin 3.9 (3.5-5.0) g/dL Lipase 24 (8-78) U/L Beta HCG, Quant < 2 mIU/mL Urine Color Urine Appearance Urine pH (5.0-8.0) Ur Specific [place] (1.005-1.025) Urine Protein (NEG-TRACE) MG/DL Urine Glucose (UA) (NEG) MG/DL Urine Ketones (NEG) MG/DL Urine Blood (NEG) Urine Nitrite (NEG) Ur Leukocyte Esterase (NEG) Urine Test (NEGATIVE) COVID-19 (ALVIN) (Negative) COVID-19 Clin Com Influenza Type A (NARENDRA) Negative (Negative) Influenza Type B (NARENDRA) Negative (Negative) Influenza A & B Note See Note 09/24/21 09/24/21 09/24/21 Range/Units 15:44 19:23 19:42 WBC 7.7 (4.8-10.8) X10*3/uL RBC 4.68 (4.20-5.50) X10*6/uL Hgb 12.2 (12.0-16.0) g/dl Hct 38.3 (37.0-47.0) % MCV 81.8 (80.0-98.0) fL MCH 26.1 L (27.0-33.0) pg MCHC 31.9 (31.0-35.0) g/dl RDW 15.6 (11.0-16.0) % Plt Count 258 (160-400) X10*3/uL MPV 9.2 L (9.4-12.3) fL Immature Gran % (Auto) 0.8 H (0.0-0.4) % Neut % (Auto) 70.1 (45-73) % Lymph % (Auto) 21.7 (20-40) % Armstrong % (Auto) 5.2 (2-11) % Eos % (Auto) 2.1 (0-4) % Baso % (Auto) 0.1 (0-2) % Lymph # (Auto) 1.7 (1.2-4.9) X10*3/uL Armstrong # (Auto) 0.4 (0.1-1.2) X10*3/uL Eos # (Auto) 0.2 (0.0-0.4) X10*3/uL Baso # (Auto) 0.0 (0.0-0.2) X10*3/uL Abs Immat Gran (auto) 0.06 H (0.00-0.03) X10*3/uL Absolute Neuts (auto) 5.4 (2.0-8.3) x10*3/uL Absolute Nucleated RBC 0.000 (0.0-0.012) X10*3/uL Nucleated RBC % (auto) 0.0 (0.0-0.2) /100WBC Sodium (135-145) mmol/L Potassium (3.3-5.1) mmol/L Chloride (96-108) mmol/L Carbon Dioxide (22-29) mmol/L Anion Gap (12-20) BUN (9-16) mg/dL Creatinine (0.5-1.4) mg/dL Estim Creat Clear Calc Estimated GFR Random Glucose (60-115) mg/dL Calcium (8.4-10.2) mg/dL Total Bilirubin (0.0-1.0) mg/dL Direct Bilirubin (0.0-0.5) mg/dL AST (5-31) U/L ALT (0-31) U/L Alkaline Phosphatase (39-117) U/L Total Protein (6.5-8.0) g/dL Albumin (3.5-5.0) g/dL Lipase (8-78) U/L Beta HCG, Quant mIU/mL Urine Color YELLOW Urine Appearance CLEAR Urine pH 5.5 (5.0-8.0) Ur Specific [place] >= 1.030 H (1.005-1.025) Urine Protein TRACE (NEG-TRACE) MG/DL Urine Glucose (UA) NEG (NEG) MG/DL Urine Ketones NEG (NEG) MG/DL Urine Blood NEG (NEG) Urine Nitrite NEG (NEG) Ur Leukocyte Esterase NEG (NEG) Urine Test (NEGATIVE) COVID-19 (ALVIN) Negative (Negative) COVID-19 Clin Com See Note Influenza Type A (NARENDRA) (Negative) Influenza Type B (NARENDRA) (Negative) Influenza A & B Note 09/24/21 Range/Units 19:42 WBC (4.8-10.8) X10*3/uL RBC (4.20-5.50) X10*6/uL Hgb (12.0-16.0) g/dl Hct (37.0-47.0) % MCV (80.0-98.0) fL MCH (27.0-33.0) pg MCHC (31.0-35.0) g/dl RDW (11.0-16.0) % Plt Count (160-400) X10*3/uL MPV (9.4-12.3) fL Immature Gran % (Auto) (0.0-0.4) % Neut % (Auto) (45-73) % Lymph % (Auto) (20-40) % Armstrong % (Auto) (2-11) % Eos % (Auto) (0-4) % Baso % (Auto) (0-2) % Lymph # (Auto) (1.2-4.9) X10*3/uL Armstrong # (Auto) (0.1-1.2) X10*3/uL Eos # (Auto) (0.0-0.4) X10*3/uL Baso # (Auto) (0.0-0.2) X10*3/uL Abs Immat Gran (auto) (0.00-0.03) X10*3/uL Absolute Neuts (auto) (2.0-8.3) x10*3/uL Absolute Nucleated RBC (0.0-0.012) X10*3/uL Nucleated RBC % (auto) (0.0-0.2) /100WBC Sodium (135-145) mmol/L Potassium (3.3-5.1) mmol/L Chloride (96-108) mmol/L Carbon Dioxide (22-29) mmol/L Anion Gap (12-20) BUN (9-16) mg/dL Creatinine (0.5-1.4) mg/dL Estim Creat Clear Calc Estimated GFR Random Glucose (60-115) mg/dL Calcium (8.4-10.2) mg/dL Total Bilirubin (0.0-1.0) mg/dL Direct Bilirubin (0.0-0.5) mg/dL AST (5-31) U/L ALT (0-31) U/L Alkaline Phosphatase (39-117) U/L Total Protein (6.5-8.0) g/dL Albumin (3.5-5.0) g/dL Lipase (8-78) U/L Beta HCG, Quant mIU/mL Urine Color Urine Appearance Urine pH (5.0-8.0) Ur Specific [place] (1.005-1.025) Urine Protein (NEG-TRACE) MG/DL Urine Glucose (UA) (NEG) MG/DL Urine Ketones (NEG) MG/DL Urine Blood (NEG) Urine Nitrite (NEG) Ur Leukocyte Esterase (NEG) Urine Test NEGATIVE (NEGATIVE) COVID-19 (ALVIN) (Negative) COVID-19 Clin Com Influenza Type A (NARENDRA) (Negative) Influenza Type B (NARENDRA) (Negative) Influenza A & B Note Imaging Data CT scan - abdomen: Attestation: I personally reviewed and interpreted this imaging study as follows: Radiologist's impression: No acute pathology. Gallbladder ultrasound: Attestation: I personally reviewed and interpreted this imaging study as follows: Radiologist's impression: Normal looking ultrasound. Discharge Plan Discharge Clinical Impression: Abdominal pain Patient Disposition: Home, Self-Care Instructions: Abdominal Pain (ED) Prescriptions: New omeprazole magnesium [Prilosec OTC] 20 mg tablet,delayed release (DR/EC) 20 mg PO BID 10 Days Qty: 20 0RF No Action venlafaxine 150 mg capsule,extended release 24hr 150 mg PO DAILY 90 Days Qty: 90 0RF ketoconazole 2 % shampoo 1 appl topical 2XW 14 Days Qty: 120 0RF venlafaxine 75 mg capsule,extended release 24hr 75 mg PO DAILY 90 Days Qty: 90 0RF gabapentin 300 mg capsule 300 mg PO BID 90 Days Qty: 180 0RF Referrals: Osito Moreno FNP-ZAHRA [Primary Care Provider] - Mahendra Montgomery MD [Physician] -
[2021-09-24 22:18] LABS: Lipase 24 U/L (8-78)
[2021-09-24] MEDS: Famotidine/PF 20 MG/2 ML VIAL IVPUSH (22:27)
[2021-09-24] MEDS: 0.9 % Sodium Chloride 1,000 ML 999 ML IV (22:28)
== END 2021-09-24 23:38 | disposition home or self-care (01) ==
PROVIDERS: Emergency Provider Emergency Medicine; PCP Nurse Practitioner Family
DX: R10.9 Unspecified abdominal pain (principal); Z20.822 Contact with and (suspected) exposure to COVID-19
CPT/HCPCS: 36415; 74176; 76705; 80053; 80076; 81003; 81025; 82248; 83690; 84702; 85025; 87502; 87635; 96361; 96374; 99282; 99284

== ENCOUNTER 2021-09-30 08:02 | Outpatient (REF) | payer OTHER, SELFPAY | END 2021-09-30 08:03 | disposition home or self-care (01) | LOC: HO.HOSX 08:02 | PROVIDERS: Visit Provider Physician Assistant | DX: Z13.89 Encounter for screening for other disorder (principal) ==

== ENCOUNTER 2021-10-24 07:17 | Outpatient (REF) | payer OTHER, SELFPAY | END 2021-10-24 07:18 | disposition home or self-care (01) | LOC: HO.HOSX 07:17 | PROVIDERS: Visit Provider Physician Assistant | DX: Z13.89 Encounter for screening for other disorder (principal) ==

== ENCOUNTER 2022-06-22 15:13 | Outpatient (REF) | payer OTHER, SELFPAY ==
--- NOTE | ~2022-06-22 | US_ITS ---
EXAMINATION: US PELVIS COMPLETE CLINICAL INFORMATION: Postmenopausal bleeding. COMPARISON: Pelvic ultrasound dated 06/13/2013. TECHNIQUE: Transabdominal and transvaginal imaging were performed. FINDINGS: The uterus is of normal size and echogenicity, measuring 11.5 x 3.0 x 4.2 cm. The uterus is anteverted and anteflexed. A regular homogeneous endometrium is identified measuring 0.9 cm. Nabothian cysts are seen within the cervix FIBROIDS: There are 2 fibroids seen. 1. Location: Upper rightward body, myometrial. Size: 1.6 x 1.3 x 1.6 cm. Fibroid characteristics: Isoechoic. 2. Location: Anterior mid body, pedunculated. Size: 0.5 x 0.5 x 0.8 cm. Fibroid characteristics: Isoechoic. Both ovaries are of normal size and echogenicity. The right ovary measures 1.9 x 1.5 x 0.9 cm for a volume of 1.3 mL. The left ovary measures 2.7 x 1.9 x 1.7 cm for a volume of 4.6 mL. The left ovary contains a 2.1 cm in maximal diameter dominant simple cyst. There is no pelvic free fluid. No adnexal mass is seen. US/US pelvic and transvaginal IMPRESSION: 1. Uterine fibroids are seen, as detailed. 2. There are nabothian cysts seen within the cervix. 3. A 2.1 cm dominant left ovarian simple cyst is incidentally seen, for which no imaging follow-up is recommended.
== END 2022-06-22 15:14 | disposition home or self-care (01) ==
LOC: HO.US 15:13
PROVIDERS: PCP Nurse Practitioner Family; Visit Provider Advanced Practice Midwife
DX: N95.0 Postmenopausal bleeding (principal)
CPT/HCPCS: 76830; 76856

== ENCOUNTER 2022-08-14 09:45 | Emergency (ER) | payer OTHER, SELFPAY ==
[2022-08-14 09:57] VITALS: BP 148/91; PULSE 74; RESP 16; TEMP 36.3; O2SAT 99; BMI 37.8
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
[2022-08-14 11:34] LABS: MANUAL DIFF FLAG NO
[2022-08-14] MEDS: Post Exposure Medication Kit 1 KIT PO (11:34)
[2022-08-14 11:36] LABS: Basophils Percent Auto 0.6 % (0-2); Eosinophils Absolute Auto 0.2 X10*3/uL (0.0-0.4); Eosinophils Percent Auto 2.8 % (0-4); Hematocrit 38.1 % (37.0-47.0); Hemoglobin 12.1 g/dl (12.0-16.0); Imm Gran Abs Auto 0.05 X10*3/uL (0.00-0.03); Imm Gran Pct Auto 0.7 % (0.0-0.4); Lymphocytes Absolute Auto 1.5 X10*3/uL (1.2-4.9); Lymphocytes Percent Auto 21.3 % (20-40); Mean Corpuscular HGB Conc 31.8 g/dl (31.0-35.0); Mean Corpuscular Hemoglobin 26.1 pg (27.0-33.0); Mean Corpuscular Volume 82.1 fL (80.0-98.0); Mean Platelet Volume 9.5 fL (9.4-12.3); Monocytes Absolute Auto 0.3 X10*3/uL (0.1-1.2); Monocytes Percent Auto 4.3 % (2-11); Neutrophils Absolute Auto 4.8 x10*3/uL (2.0-8.3); Neutrophils Percent Auto 70.3 % (45-73); Platelet Count 221 X10*3/uL (160-400); Red Blood Count 4.64 X10*6/uL (4.20-5.50); Red Cell Distribution Width 15.3 % (11.0-16.0); White Blood Count 6.8 X10*3/uL (4.8-10.8)
[2022-08-14 11:57] LABS: Alanine Aminotransferase 8 U/L (0-31); Albumin Level 3.9 g/dL (3.5-5.0); Alkaline Phosphatase 63 U/L (39-117); Anion Gap 12 (12-20); Aspartate Amino Transferase 16 U/L (5-31); Bilirubin Total 0.3 mg/dL (0.0-1.0); Blood Urea Nitrogen 11 mg/dL (9-16); Carbon Dioxide 26 mmol/L (22-29); Chloride 107 mmol/L (96-108); Creatinine Clr Calc Pharmacy 86.4; Estimated Glomerular Filt Rate > 60; Glucose Random 93 mg/dL (60-115); Potassium 4.2 mmol/L (3.3-5.1); Sodium 141 mmol/L (135-145); Total Protein 6.6 g/dL (6.5-8.0)
[2022-08-14 12:33] LABS: HBS Num1 70.33 mIU/mL (0-7.99); HBc Num1 0.17 S/CO (0.00-0.79); HBsAGNum1 0.32 S/CO (0.00-0.99); HIV AB/AG Nonreactive (Nonreactive); HIV Num 1 0.07 S/CO (0.00-0.99); Hepatitis B Core Antibody Nonreactive (Nonreactive); Hepatitis B Surface Antigen Negative (Negative); ~HepC Num1 0.11 S/CO (0.00-0.79); ~Hepatitis B Surface Antibody REACTIVE (Nonreactive); ~Hepatitis C Antibody Nonreactive (Nonreactive)
== END 2022-08-14 11:39 | disposition home or self-care (01) ==
PROVIDERS: Emergency Provider Internal Medicine; PCP Nurse Practitioner Family
DX: S61.233A Puncture wound without foreign body of left middle finger without damage to nail, initial encounter (principal); Y28.9XXA Contact with unspecified sharp object, undetermined intent, initial encounter; Y93.9 Activity, unspecified; Y92.9 Unspecified place or not applicable; Y99.9 Unspecified external cause status; Z20.9 Contact with and (suspected) exposure to unspecified communicable disease; Z79.899 Other long term (current) drug therapy
CPT/HCPCS: 36415; 80053; 85025; 86704; 86706; 86803; 87340; 99283; 99284

== ENCOUNTER 2022-09-04 15:26 | Outpatient (REF) | payer OTHER, SELFPAY | END 2022-09-04 15:27 | disposition home or self-care (01) | LOC: HO.LNP 15:26 | PROVIDERS: Visit Provider Advanced Practice Midwife | DX: Z13.89 Encounter for screening for other disorder (principal) ==

== ENCOUNTER 2022-09-04 16:22 | Outpatient (REF) | payer OTHER, SELFPAY ==
[2022-09-04 18:29] LABS: Thyroid Stimulating Hormone 2.44 uIU/mL (0.32-4.0)
[2022-09-05 04:34] LABS: CT PCR NOT DETECTED (Not Detect.); NG PCR NOT DETECTED (Not Detect.)
[2022-09-05 11:54] LABS: BV Int Neg Control Negative (Negative); BV Int Pos Control Positive (Positive)
== END 2022-09-04 16:23 | disposition home or self-care (01) ==
LOC: HO.LAB 16:22
PROVIDERS: PCP Nurse Practitioner Family; Visit Provider Advanced Practice Midwife
DX: Z01.419 Encounter for gynecological examination (general) (routine) without abnormal findings (principal); R23.2 Flushing
CPT/HCPCS: 0353U; 83001; 84443; 87480; 87510; 87660

== ENCOUNTER 2022-09-25 18:27 | Emergency (ER) | payer OTHER, SELFPAY ==
--- NOTE | ~2022-09-25 | CT_ITS ---
EXAMINATION: CT ABDOMEN AND PELVIS WITH CONTRAST CLINICAL INFORMATION: Epigastric pain COMPARISON: None available. TECHNIQUE: Multidetector volumetric images were obtained from the superior aspect of the liver through the pubic symphysis following administration 85 mL of Omnipaque 350 intravenous contrast. Sagittal and coronal reformatted images were obtained on the technologist's workstation. Oral contrast: No This CT examination was performed using dose optimization techniques as appropriate, variously including the following: *Automated exposure control *Adjustment of mA and/or kV according to patient size (this includes techniques or standardized protocols for targeted exams where dose is matched to indication/reason for exam; i.e. extremities or head) *Use of iterative reconstruction technique DLP: 660 mGy-cm FINDINGS: LUNG BASES: The visualized lung bases are unremarkable. LIVER, GALLBLADDER, AND BILIARY TREE: The liver is normal in size, shape, and attenuation. No focal hepatic lesion or biliary ductal dilatation is present. The gallbladder is unremarkable with no evidence of radiopaque gallstones, gallbladder wall thickening, or obvious pericholecystic inflammatory changes. PANCREAS: Unremarkable. SPLEEN: Unremarkable. ADRENAL GLANDS: Unremarkable. KIDNEYS AND URETERS: Bilateral nephrograms are symmetric. No hydronephrosis or obstructing calculus identified. BLADDER: Unremarkable. GASTROINTESTINAL TRACT: Gastric band is present across the proximal stomach, in similar position to prior. No evidence of bowel obstruction. There is mild colonic diverticulosis without diverticulitis. No significant bowel wall thickening is seen. Appendix appears collapsed. No free fluid or free air is seen. ABDOMINAL WALL: Gastric band port is present in the anterior abdominal wall subcutaneous tissues. LYMPH NODES: Normal. VASCULAR: Unremarkable. PELVIC VISCERA: Unremarkable. OSSEOUS STRUCTURES: Scattered degenerative changes in the spine. CT/CT abdomen pelvis w IV con IMPRESSION: No acute findings identified in the abdomen/pelvis. Gastric band in place.
[2022-09-25 18:54] VITALS: BP 130/74; PULSE 66; RESP 18; TEMP 36.1; O2SAT 100; BMI 39.2
--- NOTE | 2022-09-25 18:55 | ED.GENADULT ---
HPI - General Adult General Chief complaint: Abdominal Pain Stated complaint: abdominal pain Time Seen by Provider: 09/25/22 20:56 Source: patient Mode of arrival: ambulatory Limitations: no limitations History of Present Illness HPI narrative: This is a 42-year-old female presenting to the emergency department complaints of severe epigastric pain since yesterday progressively worsening. Patient reports history of lap band surgery however no other surgeries. Patient denies fevers, chills, vomiting, nausea, diarrhea, headache, vision changes, dizziness, weakness, chest pain and shortness of breath. No known sick contacts. Does not think she is . Related Data Previous Rx's Medication Instructions Recorded ketoconazole 2 % shampoo 1 appl topical 2XW 14 days #120 mL 10/12/21 lidocaine 4 % topical patch 1 patch topical DAILY PRN pain #15 01/23/22 (AsperFlex (lidocaine)) ea gabapentin 300 mg capsule 300 mg PO BID 30 days #60 caps 02/09/22 cyclobenzaprine 10 mg tablet 10 mg PO BEDTIME PRN muscle spasm 05/29/22 #14 tabs meloxicam 15 mg tablet 15 mg PO DAILY #14 tabs 05/29/22 venlafaxine 150 mg 150 mg PO DAILY #90 caps 07/01/22 capsule,extended release 24 hr venlafaxine 75 mg capsule,extended 75 mg PO DAILY #90 caps 07/01/22 release 24 hr TENS unit and electrodes combo pack #1 ea 07/20/22 emtricitabine 200 mg-tenofovir 1 tab PO DAILY #30 tabs 08/14/22 disoproxil fumarate 300 mg tablet (Truvada) raltegravir 400 mg tablet 400 mg PO BID #60 tabs 08/14/22 cefuroxime axetil 250 mg tablet 250 mg PO BID 7 days #14 tabs 09/26/22 Allergies Allergy/AdvReac Type Severity Reaction Status Date / Time No Known Allergies Allergy Verified 09/08/22 15:13 [No Known Allergies*] Review of Systems Review of Systems: Constitutional : No Weight loss, No Fever, No Chills, No Fatigue, No Malaise ENT/Mouth : No sore throat, No Rhinorrhea Eyes: No Eye Pain, No Swelling, No Redness Cardiovascular : No Chest Pain, No SOB, No Dyspnea on Exertion, No Orthopnea, No Edema, No Palpitations Respiratory : No Cough, No Sputum, No Wheezing Gastrointestinal : No Nausea, No Vomiting, No Diarrhea, No Constipation, + abdominal Pain, No Hematochezia, No Melena Genitourinary : No Dysuria, No Urinary Frequency, No Hematuria, Musculoskeletal : No joint pain, No Myalgias, No Joint Swelling Skin : No Skin Lesions, No rash Neuro : No Weakness, No Numbness, No Dizziness, No Headache Psych : No Anxiety/Panic, No Depression All other systems reviewed and are negative Yes all other systems are reviewed and are negative [facility] Past Medical History Attestation statement: The following information was validated with the patient. Source: old records reviewed and nursing notes reviewed Medical History Anemia Anxiety Depression History of right breast cancer Uterine fibroid Surgical History History of lumpectomy of right breast Hx of section Hx of dilation and curettage Family History Family History Family/Other Colon cancer Maternal Uncle Lung cancer Father Prostate CA Social History Social History Housing: Apartment Alcohol intake: never Patient Tobacco Use Status: Never used Tobacco Smoked in Last 30 Days: No e-Cigarette/Vaping Use: Never Used Second Hand Smoke Exposure: No Use of substances other than those prescribed or required for medical reasons: No Any prior treatment program specific to substance use: No Advance Directives: No Advance Directives Information Provided: No Patient : No service: No Current occupational status: employed Current occupation: [employer] Current occupational exposures/hazards: No Sexual orientation: Straight/Heterosexual Gender identity: Female Cognitive needs: No Hearing needs: No Vision needs: Yes Physical Exam ED Vital Signs: Vital Signs - 24 hr 09/25/22 18:54 09/25/22 21:33 Temperature 97 F Pulse Rate 66 Respiratory Rate 18 Blood Pressure 130/74 Pulse Oximetry 100 Oxygen Delivery Method Room Air Room Air BMI result Body Mass Index 39.2 Vital signs stable Appearance: Alert.? Oriented X3.? No acute distress.? Head: Normocephalic, atraumatic, no step-offs or deformities Eyes: Pupils equal, round and reactive to light.? CVS: Normal heart rate and rhythm.? Pulses normal.? Respiratory: No respiratory distress.? Breath sounds normal.? Abdomen: Soft and diffuse abdominal tenderness worse in the epigastric region however. Normoactive bowel sounds.? Skin: Skin warm and dry.? Normal skin color.? Normal skin turgor.? Extremities: No lower extremity edema.? No calf ttp. 5/5 strength to bilateral upper and lower extremities Neuro: Oriented X 3.? No motor deficit.? No sensory deficit. CN 2-12 intact Course Course Course Narrative: RME performed by Delia Sierra PA-C. Patient is a 42 year old assigned female at presenting to the emergency department with abdominal pain. Labs ordered. Patient placed back in the waiting room pending room availability and results. Reevaluation(s) Reevaluation #1: CBC appears to be within normal limits. Chemistry with no acute findings requiring intervention. Beta hCG negative lipase within normal limits. UA with 1+ leukocyte esterases and bacteria present, will send antibiotics to pharmacy for UTI. CT of the abdomen pelvis with no acute findings, gastric band in place. Educated patient on diagnosis and treatment plan, answered all question, patient verbalizes understanding. At this time patient will be discharged home, advised to return with new or worsening symptoms. Educated on worrisome signs and symptoms and when to return. At this time I feel comfortable discharge home. Time: 00:28 Medications Administered Discontinued Medications Generic Name Dose Route Start Last Admin Trade Name Suhailq PRN Reason Stop Dose Admin Iohexol 100 ml 09/25/22 22:57 09/25/22 22:57 Iohexol 350 Mg/Ml 100 Ml Infus..Btl IV 09/25/22 22:58 85 ml ONCE ONE Administration Morphine Sulfate 4 mg 09/25/22 22:10 09/25/22 22:56 Morphine Sulfate 4 Mg/Ml Cartridge IVPUSH 09/25/22 22:11 4 mg ONCE ONE Administration Protocol Medical Decision Making Medical Decision Making MDM Narrative: 42-year-old female presents with epigastric abdominal pain x2 days, reports severe in nature. Physical exam significant for diffuse abdominal tenderness however worsen epigastric region. Normoactive bowel sounds throughout. Regular rate and rhythm. Lungs clear. Abdomen soft. Neuro nonfocal. Concerns for possible GERD. I do not suspect acute abdomen, appendicitis, cholecystitis, diverticulitis or pancreatitis. Plan at this time labs, imaging, urine. Differential Diagnosis Differential Diagnoses: The differential diagnosis associated with the presentation includes Concerns for possible GERD. I do not suspect acute abdomen, appendicitis, cholecystitis, diverticulitis or pancreatitis. Admission/Observation Consideration of admission/observation: Escalation of care including admission/observation considered Lab Data MDM Lab Attestation statement: I reviewed the patient's lab results. 09/25/22 19:09/25/22 19: Labs: Lab Results 09/25/22 09/25/22 09/25/22 Range/Units 19:22 19: 19: WBC 6.5 (4.8-10.8) X10*3/uL RBC 4.69 (4.20-5.50) X10*6/uL Hgb 12.3 (12.0-16.0) g/dl Hct 39.0 (37.0-47.0) % MCV 83.2 (80.0-98.0) fL MCH 26.2 L (27.0-33.0) pg MCHC 31.5 (31.0-35.0) g/dl RDW 15.3 (11.0-16.0) % Plt Count 250 (160-400) X10*3/uL MPV 9.3 L (9.4-12.3) fL Immature Gran % (Auto) 0.5 H (0.0-0.4) % Neut % (Auto) 67.0 (45-73) % Lymph % (Auto) 24.5 (20-40) % [place] % (Auto) 5.1 (2-11) % Eos % (Auto) 2.3 (0-4) % Baso % (Auto) 0.6 (0-2) % Lymph # (Auto) 1.6 (1.2-4.9) X10*3/uL [place] # (Auto) 0.3 (0.1-1.2) X10*3/uL Eos # (Auto) 0.2 (0.0-0.4) X10*3/uL Baso # (Auto) 0.0 (0.0-0.2) X10*3/uL Abs Immat Gran (auto) 0.03 (0.00-0.03) X10*3/uL Absolute Neuts (auto) 4.4 (2.0-8.3) x10*3/uL Absolute Nucleated RBC 0.000 (0.0-0.012) X10*3/uL Nucleated RBC % (auto) 0.0 (0.0-0.2) /100WBC Sodium 143 (135-145) mmol/L Potassium 4.5 (3.3-5.1) mmol/L Chloride 107 (96-108) mmol/L Carbon Dioxide 28 (22-29) mmol/L Anion Gap 13 (12-20) BUN 10 (9-16) mg/dL Creatinine 0.83 (0.5-1.4) mg/dL Estim Creat Clear Calc 113.6 Estimated GFR > 60 Random Glucose 89 (60-115) mg/dL Calcium 9.3 (8.4-10.2) mg/dL Magnesium 2.2 (1.6-2.6) mg/dL Total Bilirubin 0.6 (0.0-1.0) mg/dL AST 16 (5-31) U/L ALT 14 (0-31) U/L Alkaline Phosphatase 65 (39-117) U/L Total Protein 6.6 (6.5-8.0) g/dL Albumin 3.9 (3.5-5.0) g/dL Lipase 19 (8-78) U/L Beta HCG, Quant < 2 mIU/mL Urine Color Urine Appearance Urine pH (5.0-9.0) Ur Specific [place] (1.005-1.025) Urine Protein (Neg-Trace) mg/dL Urine Glucose (UA) (Negative) mg/dL Urine Ketones (Negative) mg/dL Urine Blood (Negative) Urine Nitrite (Negative) Ur Leukocyte Esterase (Negative) Urine RBC (0-2) /HPF Urine WBC (0-5) /HPF Ur Squamous Epith Cells (0-2) /HPF Urine Bacteria (None Seen) Hyaline Casts (0-2) /LPF 09/25/22 Range/Units 19:22 WBC (4.8-10.8) X10*3/uL RBC (4.20-5.50) X10*6/uL Hgb (12.0-16.0) g/dl Hct (37.0-47.0) % MCV (80.0-98.0) fL MCH (27.0-33.0) pg MCHC (31.0-35.0) g/dl RDW (11.0-16.0) % Plt Count (160-400) X10*3/uL MPV (9.4-12.3) fL Immature Gran % (Auto) (0.0-0.4) % Neut % (Auto) (45-73) % Lymph % (Auto) (20-40) % [place] % (Auto) (2-11) % Eos % (Auto) (0-4) % Baso % (Auto) (0-2) % Lymph # (Auto) (1.2-4.9) X10*3/uL [place] # (Auto) (0.1-1.2) X10*3/uL Eos # (Auto) (0.0-0.4) X10*3/uL Baso # (Auto) (0.0-0.2) X10*3/uL Abs Immat Gran (auto) (0.00-0.03) X10*3/uL Absolute Neuts (auto) (2.0-8.3) x10*3/uL Absolute Nucleated RBC (0.0-0.012) X10*3/uL Nucleated RBC % (auto) (0.0-0.2) /100WBC Sodium (135-145) mmol/L Potassium (3.3-5.1) mmol/L Chloride (96-108) mmol/L Carbon Dioxide (22-29) mmol/L Anion Gap (12-20) BUN (9-16) mg/dL Creatinine (0.5-1.4) mg/dL Estim Creat Clear Calc Estimated GFR Random Glucose (60-115) mg/dL Calcium (8.4-10.2) mg/dL Magnesium (1.6-2.6) mg/dL Total Bilirubin (0.0-1.0) mg/dL AST (5-31) U/L ALT (0-31) U/L Alkaline Phosphatase (39-117) U/L Total Protein (6.5-8.0) g/dL Albumin (3.5-5.0) g/dL Lipase (8-78) U/L Beta HCG, Quant mIU/mL Urine Color Yellow Urine Appearance Clear Urine pH 6.0 (5.0-9.0) Ur Specific [place] 1.025 (1.005-1.025) Urine Protein Trace (Neg-Trace) mg/dL Urine Glucose (UA) Negative (Negative) mg/dL Urine Ketones Trace (Negative) mg/dL Urine Blood Negative (Negative) Urine Nitrite Negative (Negative) Ur Leukocyte Esterase Small (1+) H (Negative) Urine RBC 0-2 (0-2) /HPF Urine WBC 21-50 H (0-5) /HPF Ur Squamous Epith Cells 3-5 (0-2) /HPF Urine Bacteria 1+ (None Seen) Hyaline Casts 0-2 (0-2) /LPF Independent Interpretation I performed an independent interpretation of an: CT Scan Radiology Impression Discussion of test interpretation with radiology: I have reviewed the radiologist's reading. Core Measures AMI core measures followed: Yes Measure exclusions: not indicated Critical Care Time Critical Care Time Critical Care Time: No Discharge Plan Discharge Clinical Impression: Abdominal pain, UTI (urinary tract infection) Patient Disposition: Home, Self-Care Instructions: Urinary Tract Infection in Women (DC), Abdominal Pain (ED) Additional Instructions: Take your medications as prescribed. If you were prescribed antibiotics today, it is important that you take your medication to their entirety, do not skip any doses, do not finish them early. Follow-up with your primary care provider this week. Return to the emergency department with new or worsening symptoms. Such as fevers, chills, chest pain, shortness of breath, nausea, vomiting, dizziness, headache, vision changes, lethargy In case of emergency call 911 Prescriptions: New cefuroxime axetil 250 mg tablet 250 mg PO BID 7 Days Qty: 14 0RF No Action ketoconazole 2 % shampoo 1 appl topical 2XW 14 Days Qty: 120 0RF gabapentin 300 mg capsule 300 mg PO BID 30 Days Qty: 60 3RF venlafaxine 150 mg capsule,extended release 24hr 150 mg PO DAILY Qty: 90 0RF venlafaxine 75 mg capsule,extended release 24hr 75 mg PO DAILY Qty: 90 0RF (DME) TENS unit and electrodes Combo Pack See Rx Instructions .Route Qty: 1 0RF Rx Instructions: use daily for back pain emtricitabine-tenofovir (TDF) [Truvada] 200-300 mg tablet 1 tab PO DAILY Qty: 30 0RF raltegravir 400 mg tablet 400 mg PO BID Qty: 60 0RF lidocaine [AsperFlex (lidocaine)] 4 % adhesive patch,medicated 1 patch topical DAILY PRN (Reason: pain) Qty: 15 0RF cyclobenzaprine 10 mg tablet 10 mg PO BEDTIME PRN (Reason: muscle spasm) Qty: 14 0RF meloxicam 15 mg tablet 15 mg PO DAILY Qty: 14 0RF Referrals: [facility] [Provider Group] - 2 days Osito Moreno [employer] SERVICE ESTIMATOR-[facility] [Primary Care Provider] - 2 days Stand Alone Forms: Work/School Release
[2022-09-25 19:33] LABS: MANUAL DIFF FLAG NO
[2022-09-25 19:34] LABS: Basophils Percent Auto 0.6 % (0-2); Eosinophils Absolute Auto 0.2 X10*3/uL (0.0-0.4); Eosinophils Percent Auto 2.3 % (0-4); Hemoglobin 12.3 g/dl (12.0-16.0); Imm Gran Abs Auto 0.03 X10*3/uL (0.00-0.03); Imm Gran Pct Auto 0.5 % (0.0-0.4); Lymphocytes Absolute Auto 1.6 X10*3/uL (1.2-4.9); Lymphocytes Percent Auto 24.5 % (20-40); Mean Corpuscular HGB Conc 31.5 g/dl (31.0-35.0); Mean Corpuscular Hemoglobin 26.2 pg (27.0-33.0); Mean Corpuscular Volume 83.2 fL (80.0-98.0); Mean Platelet Volume 9.3 fL (9.4-12.3); Monocytes Absolute Auto 0.3 X10*3/uL (0.1-1.2); Monocytes Percent Auto 5.1 % (2-11); Neutrophils Absolute Auto 4.4 x10*3/uL (2.0-8.3); Platelet Count 250 X10*3/uL (160-400); Red Blood Count 4.69 X10*6/uL (4.20-5.50); Red Cell Distribution Width 15.3 % (11.0-16.0); White Blood Count 6.5 X10*3/uL (4.8-10.8)
[2022-09-25 19:36] LABS: Appearance Urine Clear; Color Urine Yellow; Glucose Urine UA Negative (Negative); Leukocyte Esterase Urine Small (1+) (Negative); Nitrite Urine Negative (Negative); Specific Gravity - Urine 1.025 (1.005-1.025); UMIC TRIGGER UACC YES; Urine Blood Negative (Negative); Urine Ketones Trace mg/dL (Negative); Urine Protein Trace mg/dL (Neg-Trace)
[2022-09-25 19:39] LABS: Bacteria Urine 1+ (None Seen); Hyaline Casts Urine 0-2 /LPF (0-2); RBC Urine 0-2 /HPF (0-2); UACC Culture Trigger YES; WBC Urine 21-50 /HPF (0-5)
[2022-09-25 19:49] LABS: Alanine Aminotransferase 14 U/L (0-31); Albumin Level 3.9 g/dL (3.5-5.0); Alkaline Phosphatase 65 U/L (39-117); Anion Gap 13 (12-20); Aspartate Amino Transferase 16 U/L (5-31); Bilirubin Total 0.6 mg/dL (0.0-1.0); Blood Urea Nitrogen 10 mg/dL (9-16); Calcium 9.3 mg/dL (8.4-10.2); Carbon Dioxide 28 mmol/L (22-29); Chloride 107 mmol/L (96-108); Creatinine Clr Calc Pharmacy 113.6; Estimated Glomerular Filt Rate > 60; Glucose Random 89 mg/dL (60-115); Lipase 19 U/L (8-78); Magnesium 2.2 mg/dL (1.6-2.6); Potassium 4.5 mmol/L (3.3-5.1); Sodium 143 mmol/L (135-145); Total Protein 6.6 g/dL (6.5-8.0)
[2022-09-25 19:57] LABS: HCG Quantitative < 2 mIU/mL
[2022-09-25] MEDS: Morphine Sulfate 4 MG/ML CARTRIDGE IVPUSH (22:56)
[2022-09-25] MEDS: iohexoL 350 MG/ML 100 ML INFUS..BTL IV (22:57)
--- NOTE | 2022-09-25 23:57 | PC.NURSE ---
assumed care of pt no apparent distress pt was sleeping now resting quietly aox4
[2022-09-26 00:49] VITALS: BP 140/79; PULSE 64; RESP 17; TEMP 36.6; O2SAT 100
--- NOTE | 2022-09-26 01:03 | PC.NURSE ---
Discharge instructions given and explained to pt No apparent distress ambulates safely and independently aox4
== END 2022-09-26 00:52 | disposition home or self-care (01) ==
PROVIDERS: Physician Assistant Medical; Emergency Provider Emergency Medicine; PCP Nurse Practitioner Family
DX: N39.0 Urinary tract infection, site not specified (principal); R10.9 Unspecified abdominal pain; Z79.899 Other long term (current) drug therapy
CPT/HCPCS: 36415; 74177; 80053; 81001; 83690; 83735; 84702; 85025; 87086; 96374; 99284; J2270; Q9967

== ENCOUNTER 2022-12-05 17:14 | Emergency (ER) | payer OTHER, SELFPAY ==
--- NOTE | ~2022-12-05 | CT_ITS ---
EXAMINATION: CT ABDOMEN AND PELVIS WITH CONTRAST CLINICAL INFORMATION: Abdominal pain with vomiting COMPARISON: Previous dated 09/25/2022 TECHNIQUE: Multidetector volumetric images were obtained from the superior aspect of the liver through the pubic symphysis following administration 85 mL of Omnipaque 350 intravenous contrast. Sagittal and coronal reformatted images were obtained on the technologist's workstation. Oral contrast: No This CT examination was performed using dose optimization techniques as appropriate, variously including the following: *Automated exposure control *Adjustment of mA and/or kV according to patient size (this includes techniques or standardized protocols for targeted exams where dose is matched to indication/reason for exam; i.e. extremities or head) *Use of iterative reconstruction technique DLP: 603 mGy-cm FINDINGS: LUNG BASES: The visualized lung bases are unremarkable. LIVER, GALLBLADDER, AND BILIARY TREE: The liver is normal in size, shape, and attenuation. No focal hepatic lesion or biliary ductal dilatation is present. The gallbladder is unremarkable with no evidence of radiopaque gallstones, gallbladder wall thickening, or obvious pericholecystic inflammatory changes. PANCREAS: Unremarkable. SPLEEN: Unremarkable. ADRENAL GLANDS: Unremarkable. KIDNEYS AND URETERS: The kidneys are normal in size, shape, and attenuation. No hydronephrosis, hydroureter, or calculi seen. No perinephric stranding. BLADDER: Unremarkable. GASTROINTESTINAL TRACT: The bowel pattern is felt to be nonobstructing. Gastric device position appears unchanged Appendix is within normal limits. ABDOMINAL WALL: Herniation in the region of the umbilicus omental fat some previous LYMPH NODES: Normal. VASCULAR: Unremarkable. PELVIC VISCERA: Unremarkable. OSSEOUS STRUCTURES: Unremarkable. CT/CT abdomen pelvis w IV con IMPRESSION: No acute finding. The bowel pattern is nonobstructing. No free fluid. The gastric band is unchanged in position. Fleischner guidelines were followed.
[2022-12-05 17:18] VITALS: BP 117/54; PULSE 51; RESP 20; TEMP 36; O2SAT 97; BMI 36.5
[2022-12-05 18:08] LABS: MANUAL DIFF FLAG NO
[2022-12-05 18:10] LABS: Basophils Percent Auto 0.4 % (0-2); Eosinophils Absolute Auto 0.1 X10*3/uL (0.0-0.4); Eosinophils Percent Auto 1.8 % (0-4); Hematocrit 39.9 % (37.0-47.0); Hemoglobin 12.5 g/dl (12.0-16.0); Imm Gran Abs Auto 0.02 X10*3/uL (0.00-0.03); Imm Gran Pct Auto 0.4 % (0.0-0.4); Lymphocytes Absolute Auto 1.3 X10*3/uL (1.2-4.9); Lymphocytes Percent Auto 22.1 % (20-40); Mean Corpuscular HGB Conc 31.3 g/dl (31.0-35.0); Mean Corpuscular Hemoglobin 26.3 pg (27.0-33.0); Mean Platelet Volume 9.4 fL (9.4-12.3); Monocytes Absolute Auto 0.3 X10*3/uL (0.1-1.2); Monocytes Percent Auto 5.4 % (2-11); Neutrophils Percent Auto 69.9 % (45-73); Platelet Count 216 X10*3/uL (160-400); Red Blood Count 4.75 X10*6/uL (4.20-5.50); Red Cell Distribution Width 14.3 % (11.0-16.0); White Blood Count 5.7 X10*3/uL (4.8-10.8)
[2022-12-05 18:11] LABS: Appearance Urine Clear; Color Urine Yellow; Glucose Urine UA Negative (Negative); Leukocyte Esterase Urine Negative (Negative); Nitrite Urine Negative (Negative); Specific Gravity - Urine 1.025 (1.005-1.025); Urine Blood Negative (Negative); Urine Ketones 40 mg/dL (Negative); Urine Protein Negative (Neg-Trace)
[2022-12-05 18:29] LABS: Alanine Aminotransferase 10 U/L (0-31); Alkaline Phosphatase 66 U/L (39-117); Anion Gap 15 (12-20); Aspartate Amino Transferase 17 U/L (5-31); Bilirubin Direct 0.2 mg/dL (0.0-0.5); Bilirubin Total 0.7 mg/dL (0.0-1.0); Blood Urea Nitrogen 9 mg/dL (9-16); Calcium 9.3 mg/dL (8.4-10.2); Carbon Dioxide 19 mmol/L (22-29); Chloride 107 mmol/L (96-108); Creatinine Clr Calc Pharmacy 101.2; Estimated Glomerular Filt Rate > 60; Glucose Random 82 mg/dL (60-115); Lipase 17 U/L (8-78); Sodium 137 mmol/L (135-145); Total Protein 7.1 g/dL (6.5-8.0)
--- NOTE | 2022-12-05 18:35 | ED_ITS ---
HPI - General Adult General Chief complaint: General Medical Stated complaint: abd pain/dizziness/n/v Time Seen by Provider: 12/05/22 17:58 Source: patient and family Mode of arrival: ambulatory Limitations: no limitations History of Present Illness HPI narrative: 42-year-old female with a past medical history of breast cancer currently in remission, depression, gastric lap band, several and D and C in the past here with complaints of mid abdominal pain with vomiting for the last 2 weeks. Patient reports 2-3 episodes daily of nonbilious, nonbloody vomiting. No associated diarrhea or constipation. No fevers or chills or urinary symptoms. Patient reports since having chemo and radiation she has had irregular menses. She cannot recall her last. She did do a home test which she thought was positive. She went to Urgent Care today and had a there that was negative per patient she was referred into the ER for further evaluation. Related Data Previous Rx's Medication Instructions Recorded ketoconazole 2 % shampoo 1 appl topical 2XW 14 days #120 mL 10/12/21 lidocaine 4 % topical patch 1 patch topical DAILY PRN pain #15 01/23/22 (AsperFlex (lidocaine)) ea gabapentin 300 mg capsule 300 mg PO BID 30 days #60 caps 02/09/22 cyclobenzaprine 10 mg tablet 10 mg PO BEDTIME PRN muscle spasm 05/29/22 #14 tabs meloxicam 15 mg tablet 15 mg PO DAILY #14 tabs 05/29/22 venlafaxine 150 mg 150 mg PO DAILY #90 caps 07/01/22 capsule,extended release 24 hr venlafaxine 75 mg capsule,extended 75 mg PO DAILY #90 caps 07/01/22 release 24 hr TENS unit and electrodes combo pack #1 ea 07/20/22 emtricitabine 200 mg-tenofovir 1 tab PO DAILY #30 tabs 08/14/22 disoproxil fumarate 300 mg tablet (Truvada) raltegravir 400 mg tablet 400 mg PO BID #60 tabs 08/14/22 cefuroxime axetil 250 mg tablet 250 mg PO BID 7 days #14 tabs 09/26/22 omeprazole 40 mg capsule,delayed 40 mg PO DAILY #30 caps 12/05/22 release ondansetron 4 mg disintegrating 4 mg PO Q6H PRN nausea and 12/05/22 tablet vomiting #20 tabs Allergies Allergy/AdvReac Type Severity Reaction Status Date / Time No Known Allergies Allergy Verified 12/05/22 17:27 [No Known Allergies*] Review of Systems Review of Systems: Yes all other systems are reviewed and are negative Constitutional: Constitutional: Reports no additional constitutional comp laints, Denies body ache(s), Denies chills, Denies fever(s), Denies headache(s) and Denies weakness Eyes: Eyes: Reports no additional eye complaints and Denies change in vision ENT: Reports system reviewed and no additional complaints, except as documented, Denies dizziness, Denies headache(s), Denies nasal congestion, Denies nasal discharge and Denies neck pain Cardiovascular: Cardiovascular: Reports no additional cardiovascular complaints, Denies chest pain, Denies leg edema and Denies dyspnea Respiratory: Respiratory: Reports no additional respiratory complaints, Denies cough and Denies dyspnea Gastrointestinal: Gastrointestinal: Reports no additional gastrointestinal complaints, Reports abdominal pain, Denies diarrhea, Reports nausea and Reports vomiting Genitourinary: Genitourinary: Reports no additional female genitourinary complaints and Denies urinary incontinence Musculoskeletal: Musculoskeletal: Reports no additional musculoskeletal complaints, Denies back pain, Denies arthralgias, Denies joint swelling, Denies neck pain, Denies numbness and Denies tingling Integumentary/Breasts: Skin/Breast: Reports system reviewed and no additional complaints, except as docu and Denies rash Neurologic: Reports system reviewed and no additional complaints, except as documented, Denies dizziness, Denies headache(s), Denies numbness, Denies tingling and Denies weakness [facility] Past Medical History Attestation statement: The following information was validated with the patient. Source: old records reviewed and nursing notes reviewed Medical History Anemia Anxiety Depression History of right breast cancer Uterine fibroid Surgical History History of lumpectomy of right breast Hx of section Hx of dilation and curettage Family History Family History Family/Other Colon cancer Maternal Uncle Lung cancer Father Prostate CA Social History Social History Housing: Apartment Alcohol intake: never Patient Tobacco Use Status: Never used Tobacco e-Cigarette/Vaping Use: Never Used Second Hand Smoke Exposure: No Advance Directives: No Advance Directives Information Provided: No service: No Current occupational status: employed Current occupation: [employer] Current occupational exposures/hazards: No Sexual orientation: Straight/Heterosexual Gender identity: Female Cognitive needs: No Hearing needs: No Vision needs: Yes Physical Exam ED Vital Signs: Vital Signs - 24 hr 12/05/22 17:18 12/05/22 19:22 12/05/22 21:52 Temperature 96.8 F 98.1 F 98.1 F Pulse Rate 51 71 46 L Respiratory Rate 20 18 12 Blood Pressure 117/54 L 118/59 L 101/36 L Pulse Oximetry 97 99 97 Oxygen Delivery Method Room Air Room Air Room Air 12/05/22 22:30 Temperature 98.1 F Pulse Rate 64 Respiratory Rate 16 Blood Pressure 119/64 Pulse Oximetry 98 Oxygen Delivery Method Room Air BMI result Body Mass Index 36.5 Const General: cooperative, healthy appearing, comfortable and no acute distress Orientation/consciousness: patient oriented x3 Limitations: no limitations HENMT Head: Yes normal to inspection Ears: hearing grossly normal bilaterally Eyes General: appearance normal, both eyes and all related structures Pupils: Equal, round and reactive pupils present Neck Neck: Yes normal visual inspection, Yes full ROM and Yes no lymphadenopathy Chest Chest palpation & inspection: normal inspection of the chest Resp Effort & Inspection: normal respiratory effort Auscultation: clear to auscultation bilaterally Cardio Rate: regular rate Rhythm: regular rhythm Peripheral pulses: Peripheral pulses 2+ throughout GI Inspection: Yes normal to inspection Palpation (GI): Soft to palpation, Tenderness to palpation present (GI) ( mid abdomen) with no rebound tenderness and no guarding Auscultation: normal bowel sounds General: Yes no CVA tenderness Back/Spine/Pelvis Back: no CVA tenderness Thoracic/Lumbar Spine: thoracic and lumbar spine normal to inspection Skin General skin exam: no rashes or lesions noted Neuro General: patient oriented x3 and moves all extremities Cranial nerves: Yes Equal, round and reactive pupils present Cognition (Neuro): normal cognition Gait exam (Neuro): Normal gait present Extrem General: Yes normal to inspection Course Course Course Narrative: labs and UA are unremarkable. CT shows no acute finding and the lap band is in the appropriate place. Patient feels improved. She is tolerating liquids with no additional vomiting episodes. Plan for discharge home with Zofran p.r.n. and PPI. Recommend patient follow up outpatient with her primary care doctor and GI as needed. Reviewed worrisome signs and symptoms when to return to the emergency room. Comfortable plan for discharge home. Medications Administered Discontinued Medications Generic Name Dose Route Start Last Admin Trade Name Cale PRN Reason Stop Dose Admin Sodium Chloride 1,000 mls @ 999 mls/hr 12/05/22 18:36 12/05/22 20:53 Ns IV 12/05/22 19:36 Infused .Q1H1M STA Infusion Iohexol 100 ml 12/05/22 19:34 12/05/22 19:35 Iohexol 350 Mg/Ml 100 Ml Infus..Btl IV 12/05/22 19:35 85 ml ONCE ONE Administration Morphine Sulfate 4 mg 12/05/22 18:33 12/05/22 19:27 Morphine Sulfate 4 Mg/Ml Cartridge IVPUSH 12/05/22 18:34 4 mg ONCE ONE Administration Protocol Ondansetron HCl 4 mg 12/05/22 18:33 12/05/22 19:27 Ondansetron Hcl 4 Mg/2 Ml Vial IVPUSH 12/05/22 18:34 4 mg ONCE ONE Administration Medical Decision Making Medical Decision Making [facility] Narrative: a 42-year-old female with a history of lap band, breast cancer in remission here with complaints of mid abdominal pain, multiple episodes of vomiting daily for the last 1 week. Patient concern for as she has irregular menses, is not on control and had a home test which was positive. She did go to urgent care prior to coming here to the emergency room and had a test there that was reportedly negative. Patient was referred into the ER for further evaluation. On exam patient has tenderness in the mid abdomen no rebound or guarding. She has normal bowel signs. She has stable vital signs. Will check labs, UA, CT abdomen and pelvis. Will provide analgesia, antiemetics Differential Diagnosis Differential Diagnoses: The differential diagnosis associated with the presentation includes pancreatitis, cholecystitis, bariatric surgery complication, , ectopic Lab Data [facility] Lab Attestation statement: I reviewed the patient's lab results. reviewed the labs which are unchanged from baseline 12/05/22 18:03 12/05/22 18:03 Labs: Lab Results 12/05/22 12/05/22 12/05/22 Range/Units 18:03 18:03 18:03 WBC 5.7 (4.8-10.8) X10*3/uL RBC 4.75 (4.20-5.50) X10*6/uL Hgb 12.5 (12.0-16.0) g/dl Hct 39.9 (37.0-47.0) % MCV 84.0 (80.0-98.0) fL MCH 26.3 L (27.0-33.0) pg MCHC 31.3 (31.0-35.0) g/dl RDW 14.3 (11.0-16.0) % Plt Count 216 (160-400) X10*3/uL MPV 9.4 (9.4-12.3) fL Immature Gran % (Auto) 0.4 (0.0-0.4) % Neut % (Auto) 69.9 (45-73) % Lymph % (Auto) 22.1 (20-40) % Falls % (Auto) 5.4 (2-11) % Eos % (Auto) 1.8 (0-4) % Baso % (Auto) 0.4 (0-2) % Lymph # (Auto) 1.3 (1.2-4.9) X10*3/uL Falls # (Auto) 0.3 (0.1-1.2) X10*3/uL Eos # (Auto) 0.1 (0.0-0.4) X10*3/uL Baso # (Auto) 0.0 (0.0-0.2) X10*3/uL Abs Immat Gran (auto) 0.02 (0.00-0.03) X10*3/uL Absolute Neuts (auto) 4.0 (2.0-8.3) x10*3/uL Absolute Nucleated RBC 0.000 (0.0-0.012) X10*3/uL Nucleated RBC % (auto) 0.0 (0.0-0.2) /100WBC Sodium 137 (135-145) mmol/L Potassium 4.0 (3.3-5.1) mmol/L Chloride 107 (96-108) mmol/L Carbon Dioxide 19 L (22-29) mmol/L Anion Gap 15 (12-20) BUN 9 (9-16) mg/dL Creatinine 0.72 (0.5-1.4) mg/dL Estim Creat Clear Calc 101.2 Estimated GFR > 60 Random Glucose 82 (60-115) mg/dL Calcium 9.3 (8.4-10.2) mg/dL Total Bilirubin 0.7 (0.0-1.0) mg/dL Direct Bilirubin 0.2 (0.0-0.5) mg/dL AST 17 (5-31) U/L ALT 10 (0-31) U/L Alkaline Phosphatase 66 (39-117) U/L Total Protein 7.1 (6.5-8.0) g/dL Albumin 4.0 (3.5-5.0) g/dL Lipase 17 (8-78) U/L Beta HCG, Quant 3 mIU/mL Urine Color Urine Appearance Urine pH (5.0-9.0) Ur Specific [place] (1.005-1.025) Urine Protein (Neg-Trace) mg/dL Urine Glucose (UA) (Negative) mg/dL Urine Ketones (Negative) mg/dL Urine Blood (Negative) Urine Nitrite (Negative) Ur Leukocyte Esterase (Negative) 12/05/22 Range/Units 18:03 WBC (4.8-10.8) X10*3/uL RBC (4.20-5.50) X10*6/uL Hgb (12.0-16.0) g/dl Hct (37.0-47.0) % MCV (80.0-98.0) fL MCH (27.0-33.0) pg MCHC (31.0-35.0) g/dl RDW (11.0-16.0) % Plt Count (160-400) X10*3/uL MPV (9.4-12.3) fL Immature Gran % (Auto) (0.0-0.4) % Neut % (Auto) (45-73) % Lymph % (Auto) (20-40) % Falls % (Auto) (2-11) % Eos % (Auto) (0-4) % Baso % (Auto) (0-2) % Lymph # (Auto) (1.2-4.9) X10*3/uL Falls # (Auto) (0.1-1.2) X10*3/uL Eos # (Auto) (0.0-0.4) X10*3/uL Baso # (Auto) (0.0-0.2) X10*3/uL Abs Immat Gran (auto) (0.00-0.03) X10*3/uL Absolute Neuts (auto) (2.0-8.3) x10*3/uL Absolute Nucleated RBC (0.0-0.012) X10*3/uL Nucleated RBC % (auto) (0.0-0.2) /100WBC Sodium (135-145) mmol/L Potassium (3.3-5.1) mmol/L Chloride (96-108) mmol/L Carbon Dioxide (22-29) mmol/L Anion Gap (12-20) BUN (9-16) mg/dL Creatinine (0.5-1.4) mg/dL Estim Creat Clear Calc Estimated GFR Random Glucose (60-115) mg/dL Calcium (8.4-10.2) mg/dL Total Bilirubin (0.0-1.0) mg/dL Direct Bilirubin (0.0-0.5) mg/dL AST (5-31) U/L ALT (0-31) U/L Alkaline Phosphatase (39-117) U/L Total Protein (6.5-8.0) g/dL Albumin (3.5-5.0) g/dL Lipase (8-78) U/L Beta HCG, Quant mIU/mL Urine Color Yellow Urine Appearance Clear Urine pH 6.0 (5.0-9.0) Ur Specific [place] 1.025 (1.005-1.025) Urine Protein Negative (Neg-Trace) mg/dL Urine Glucose (UA) Negative (Negative) mg/dL Urine Ketones 40 (Negative) mg/dL Urine Blood Negative (Negative) Urine Nitrite Negative (Negative) Ur Leukocyte Esterase Negative (Negative) Independent Interpretation I performed an independent interpretation of an: CT Scan Interpretation: I independently reviewed the CT scan review with radiology report Radiology Impression Discussion of test interpretation with radiology: I have reviewed the radiologist's reading. Radiologist Impression: [id number] [place] [address] CT Scan Report Signed Patient: Indu Ochoa MR#: [id number] : 1980 Acct:[id number] Age/Sex: 42 / F ADM Date: 12/05/22 Loc: HO.ED Attending Dr: Ordering Physician: Lisa Brown NP Date of Service: 12/05/22 Procedure(s): CT abdomen pelvis w IV con Accession Number(s): [id number] cc: Lisa Brown NP~ EXAMINATION: CT ABDOMEN AND PELVIS WITH CONTRAST? CLINICAL INFORMATION: Abdominal pain with vomiting? COMPARISON: Previous dated 09/25/2022 TECHNIQUE: Multidetector volumetric images were obtained from the superior aspect of the liver through the pubic symphysis following administration 85 mL of Omnipaque 350 intravenous contrast. Sagittal and coronal reformatted images were obtained on the technologist's workstation.? Oral contrast: No This CT examination was performed using dose optimization techniques as appropriate, variously including the following: *Automated exposure control *Adjustment of mA and/or kV according to patient size (this includes techniques or standardized protocols for targeted exams where dose is matched to indication/reason for exam; i.e. extremities or head) *Use of iterative reconstruction technique DLP: 603 mGy-cm FINDINGS: LUNG BASES: The visualized lung bases are unremarkable.? LIVER, GALLBLADDER, AND BILIARY TREE: The liver is normal in size, shape, and attenuation. No focal hepatic lesion or biliary ductal dilatation is present. The gallbladder is unremarkable with no evidence of radiopaque gallstones, gallbladder wall thickening, or obvious pericholecystic inflammatory changes.? PANCREAS: Unremarkable.? SPLEEN: Unremarkable.? ADRENAL GLANDS: Unremarkable.? KIDNEYS AND URETERS: The kidneys are normal in size, shape, and attenuation. No hydronephrosis, hydroureter, or calculi seen. No perinephric stranding. ? BLADDER: Unremarkable.? GASTROINTESTINAL TRACT: The bowel pattern is felt to be nonobstructing. Gastric device position appears unchanged Appendix is within normal limits. ABDOMINAL WALL: Herniation in the region of the umbilicus omental fat some previous? LYMPH NODES: Normal. VASCULAR: Unremarkable. PELVIC VISCERA: Unremarkable.? OSSEOUS STRUCTURES: Unremarkable.? CT/CT abdomen pelvis w IV con IMPRESSION: No acute finding. The bowel pattern is nonobstructing. No free fluid. ? The gastric band is unchanged in position.? ? Fleischner guidelines were followed. Discharge Plan Discharge Clinical Impression: Abdominal pain Patient Disposition: Home, Self-Care Instructions: Abdominal Pain (ED) Additional Instructions: Your blood work, urine testing and CT scan are reassuring Please follow-up with primary care doctor as he may need to see a traffic supervisor and have an endoscopy for continued symptoms Follow a bland diet and then advance her diet as tolerated. Return for any worsening since Prescriptions: New ondansetron 4 mg tablet,disintegrating 4 mg PO Q6H PRN (Reason: nausea and vomiting) Qty: 20 0RF omeprazole 40 mg capsule,delayed release(DR/EC) 40 mg PO DAILY Qty: 30 0RF No Action ketoconazole 2 % shampoo 1 appl topical 2XW 14 Days Qty: 120 0RF gabapentin 300 mg capsule 300 mg PO BID 30 Days Qty: 60 3RF venlafaxine 150 mg capsule,extended release 24hr 150 mg PO DAILY Qty: 90 0RF venlafaxine 75 mg capsule,extended release 24hr 75 mg PO DAILY Qty: 90 0RF (DME) TENS unit and electrodes Combo Pack See Rx Instructions .Route Qty: 1 0RF Rx Instructions: use daily for back pain emtricitabine-tenofovir (TDF) [Truvada] 200-300 mg tablet 1 tab PO DAILY Qty: 30 0RF raltegravir 400 mg tablet 400 mg PO BID Qty: 60 0RF cefuroxime axetil 250 mg tablet 250 mg PO BID 7 Days Qty: 14 0RF lidocaine [AsperFlex (lidocaine)] 4 % adhesive patch,medicated 1 patch topical DAILY PRN (Reason: pain) Qty: 15 0RF cyclobenzaprine 10 mg tablet 10 mg PO BEDTIME PRN (Reason: muscle spasm) Qty: 14 0RF meloxicam 15 mg tablet 15 mg PO DAILY Qty: 14 0RF Referrals: Osito Moreno FNP-ZAHRA [Primary Care Provider] - 1 week Lacho Cid [Physician] - 1 week Stand Alone Forms: Work/School Release
[2022-12-05 18:36] LABS: HCG Quantitative 3 mIU/mL
[2022-12-05 19:22] VITALS: BP 118/59; PULSE 71; RESP 18; TEMP 36.7; O2SAT 99
[2022-12-05] MEDS: ondansetron HCL 4 MG/2 ML VIAL IVPUSH (19:27)
[2022-12-05] MEDS: Morphine Sulfate 4 MG/ML CARTRIDGE IVPUSH (19:27)
[2022-12-05] MEDS: 0.9 % Sodium Chloride 1,000 ML 999 ML IV (19:28)
[2022-12-05] MEDS: iohexoL 350 MG/ML 100 ML INFUS..BTL IV (19:35)
--- NOTE | 2022-12-05 21:00 | PC.NURSE ---
this rn assumed care of pt @ 1900. pt in ct at time needed iv placement. 20g iv placed in L AC. once pt returned to room pt medicated according to jul.
[2022-12-05 21:52] VITALS: BP 101/36; PULSE 46; RESP 12; TEMP 36.7; O2SAT 97
[2022-12-05 22:30] VITALS: BP 119/64; PULSE 64; RESP 16; TEMP 36.7; O2SAT 98
--- NOTE | 2022-12-05 22:35 | PC.NURSE ---
iv removed at discharge. pt calm and cooperative. pt ambulatory at discharge. vss. pt provided with discharge packet and work note. pt verbalized understanding of discharge plan
== END 2022-12-05 22:40 | disposition home or self-care (01) ==
PROVIDERS: Emergency Provider Emergency Medicine Emergency Medical Services; PCP Nurse Practitioner Family
DX: R10.9 Unspecified abdominal pain (principal); D64.9 Anemia, unspecified; Z85.3 Personal history of malignant neoplasm of breast
CPT/HCPCS: 36415; 74177; 80048; 80076; 81003; 83690; 84702; 85025; 96361; 96374; 96375; 99284; J2270; J2405; Q9967

== ENCOUNTER 2023-04-23 07:45 | Outpatient (REF) | payer OTHER, SELFPAY ==
--- NOTE | ~2023-04-23 | MM_ITS ---
EXAMINATION: MM SCREENING DIGITAL BREAST TOMOSYNTHESIS, BILATERAL CLINICAL INFORMATION: Screening. Asymptomatic. History of right sided IDC status post lumpectomy 02/14/2015. COMPARISON: Mammography: 09/12/2021, 06/18/2017, and dating back to 2014. TECHNIQUE: Digital breast tomosynthesis is performed in both the craniocaudal and mediolateral oblique views along with computer-aided detection (CAD). Synthesized 2D images are generated from the tomosynthesis. FINDINGS: There are scattered areas of fibroglandular density (ACR BI-RADS breast composition Category b). Stable scarring in the superior far lateral posterior aspect of the right breast from treatment related changes, unchanged. No new suspicious findings. In the left breast, no suspicious masses, suspicious grouped calcifications, or areas of architectural distortion present. The parenchymal pattern is stable from prior exams. MM/MM tomosynthesis screening BI IMPRESSION: No mammographic evidence of malignancy. Stable benign findings right breast. ASSESSMENT: BI-RADS BI-RADS 2 - Benign Findings RECOMMENDATION: Routine annual mammography screening. 1 year F/U This examination should not preclude the clinical evaluation of a suspicious palpable abnormality. This patient's information was entered into a reminder system with a target due date for their next mammogram.
[2023-04-23 09:02] LABS: MANUAL DIFF FLAG NO
[2023-04-23 09:21] LABS: Appearance Urine Clear; Color Urine Yellow; Glucose Urine UA Negative (Negative); Leukocyte Esterase Urine Small (1+) (Negative); Nitrite Urine Negative (Negative); PH 5.5 (5.0-9.0); UMIC TRIGGER UACC YES; Urine Blood Negative (Negative); Urine Ketones Negative (Negative); Urine Protein Negative (Neg-Trace)
[2023-04-23 09:22] LABS: Basophils Percent Auto 0.5 % (0-2); Eosinophils Absolute Auto 0.1 X10*3/uL (0.0-0.4); Eosinophils Percent Auto 2.4 % (0-4); Hematocrit 39.1 % (37.0-47.0); Hemoglobin 12.4 g/dl (12.0-16.0); Imm Gran Abs Auto 0.03 X10*3/uL (0.00-0.03); Imm Gran Pct Auto 0.5 % (0.0-0.4); Lymphocytes Absolute Auto 1.3 X10*3/uL (1.2-4.9); Lymphocytes Percent Auto 22.7 % (20-40); Mean Corpuscular HGB Conc 31.7 g/dl (31.0-35.0); Mean Corpuscular Hemoglobin 28.1 pg (27.0-33.0); Mean Corpuscular Volume 88.7 fL (80.0-98.0); Mean Platelet Volume 9.7 fL (9.4-12.3); Monocytes Absolute Auto 0.3 X10*3/uL (0.1-1.2); Monocytes Percent Auto 5.4 % (2-11); Neutrophils Percent Auto 68.5 % (45-73); Platelet Count 197 X10*3/uL (160-400); Red Blood Count 4.41 X10*6/uL (4.20-5.50); Red Cell Distribution Width 15.3 % (11.0-16.0); White Blood Count 5.8 X10*3/uL (4.8-10.8)
[2023-04-23 09:26] LABS: Bacteria Urine None Seen (None Seen); Hyaline Casts Urine 0-2 /LPF (0-2); RBC Urine 0-2 /HPF (0-2); UACC Culture Trigger YES
[2023-04-23 09:46] LABS: Alanine Aminotransferase 12 U/L (0-31); Albumin Level 3.8 g/dL (3.5-5.0); Alkaline Phosphatase 64 U/L (39-117); Anion Gap 14 (12-20); Aspartate Amino Transferase 19 U/L (5-31); Bilirubin Total 0.2 mg/dL (0.0-1.0); Blood Urea Nitrogen 16 mg/dL (9-16); Calcium 8.8 mg/dL (8.4-10.2); Carbon Dioxide 25 mmol/L (22-29); Chloride 107 mmol/L (96-108); Cholesterol 230 mg/dL (<200); Estimated Glomerular Filt Rate > 60; Glucose Fasting 81 mg/dL (60-99); HDL Cholesterol 59 mg/dL (>40); LDL Cholesterol Calculated 159 mg/dL (<100); Potassium 4.2 mmol/L (3.3-5.1); Sodium 142 mmol/L (135-145); Total Protein 6.6 g/dL (6.5-8.0); Triglycerides 64 mg/dL (<150)
[2023-04-23 09:55] LABS: TSH reflex Free T4 6.37 uIU/mL (0.32-4.0)
[2023-04-23 10:09] LABS: HBS Num1 62.96 mIU/mL (0-7.99); HBc Num1 0.09 S/CO (0.00-0.79); HBsAGNum1 0.26 S/CO (0.00-0.99); HIV AB/AG Nonreactive (Nonreactive); HIV Num 1 0.05 S/CO (0.00-0.99); Hepatitis A Antibody IgM 0.12 Index (0-0.79); Hepatitis B Core Antibody Nonreactive (Nonreactive); Hepatitis B Surface Antigen Negative (Negative); ~HepC Num1 0.11 S/CO (0.00-0.79); ~Hepatitis A Antibody IgM Nonreactive (Nonreactive); ~Hepatitis B Surface Antibody REACTIVE (Nonreactive); ~Hepatitis C Antibody Nonreactive (Nonreactive)
[2023-04-23 10:26] LABS: Free T4 (Free Thyroxine) 0.81 ng/dL (0.71-1.85)
[2023-04-25 23:54] LABS: TS Negative Control Passed; TS Panel A 0; TS Panel B 0; TS Positive Control Passed; TSpotTB Negative (Negative)
== END 2023-04-23 07:46 | disposition home or self-care (01) ==
LOC: HO.MAMMO 07:45
PROVIDERS: Absent Provider Nurse Practitioner Family; PCP Nurse Practitioner Family; Visit Provider Advanced Practice Midwife
DX: Z12.31 Encounter for screening mammogram for malignant neoplasm of breast (principal); Z11.1 Encounter for screening for respiratory tuberculosis; Z11.4 Encounter for screening for human immunodeficiency virus [HIV]; W46.0XXA Contact with hypodermic needle, initial encounter; Z85.3 Personal history of malignant neoplasm of breast; Z00.00 Encounter for general adult medical examination without abnormal findings
CPT/HCPCS: 36415; 77063; 77067; 80053; 80061; 81001; 84439; 84443; 85025; 86481; 86704; 86706; 86709; 86803; 87086; 87340; 87389

== ENCOUNTER → 2023-04-23 08:00 | Outpatient (BNV) | payer OTHER, SELFPAY | PROVIDERS: Absent Provider Nurse Practitioner Family; PCP Nurse Practitioner Family; Visit Provider Radiology Diagnostic Radiology | DX: Z12.31 Encounter for screening mammogram for malignant neoplasm of breast (principal) | CPT/HCPCS: 77063; 77067 ==

== ENCOUNTER 2023-04-26 15:59 | Outpatient (AMB) | payer OTHER, SELFPAY ==
--- NOTE | 2023-04-26 16:03 | A.OFFPC_ITS ---
Vital Signs 04/26/23 16:06 Height 5 ft 1 in Weight 154 lb BMI 29.1 BP 106/70 Blood Pressure Location Rt brachial Position Sitting Pulse 80 Pulse Source Pulse Oximeter Pulse Oximetry (%) 98 Oxygen Delivery Method Room Air Intake Visit Reasons: 4 Month follow up labs and paperwork Intake Note: Patient here to follow up on labs and have paperwork filled out. Allergies No Known Allergies [No Known Allergies*] Allergy (Verified 04/26/23 16:06) Medication List - Last Reconciled 04/26/23 by ALEXANDER MuñozP- cefuroxime axetil 250 mg PO BID 7 days cyclobenzaprine 10 mg PO BEDTIME PRN emtricitabine-tenofovir (TDF) 200-300 mg (Truvada) 1 tab PO DAILY gabapentin 300 mg PO BID 30 days ketoconazole 2% 1 appl topical 2XW 14 days lidocaine 4% (AsperFlex (lidocaine)) 1 patch topical DAILY PRN meloxicam 15 mg PO DAILY omeprazole 40 mg PO DAILY ondansetron 4 mg PO Q6H PRN raltegravir 400 mg PO BID TENS unit and electrodes use daily for back pain venlafaxine ER 150 mg PO DAILY venlafaxine ER 75 mg PO DAILY Tobacco use date assessed: 09/08/22 HPI 4 Month follow up labs and paperwork HPI Details Pt c/o lower back pain. She reports pain around her coccyx. Pt does report radicular symptoms down her lower extremities. Will order XR and refer to PT. Denies any signs of cauda equina. Pt's last lipids were elevated. Pt would like to work on her diet before starting a medication. Will repeat labs in 2 mon ths. Denies chest pain, shortness of breath, and dizziness. Pt reports urinary frequency. She does not have any burning with urination. UA is negative for UTI. Pt will let me know if this persists. [facility] Medical History Anemia Anxiety Depression History of right breast cancer Uterine fibroid Surgical History History of lumpectomy of right breast Hx of section Hx of dilation and curettage Family History Family/Other Colon cancer Maternal Uncle Lung cancer Father Prostate CA Social History Housing: Apartment Alcohol intake: never Patient Tobacco Use Status: Never used Tobacco e-Cigarette/Vaping Use: Never Used Second Hand Smoke Exposure: No Substance Use Type: Marijuana service: No Current occupational status: employed Current occupation: [employer] Current occupational exposures/hazards: No Sexual orientation: Straight/Heterosexual Gender identity: Female Cognitive needs: No Hearing needs: No Vision needs: Yes Female Reproductive History Menstrual Age of Menarche: 8 Questionnaire Thrive Questionnaire Date Thrive assessed: 09/08/22 RONNIE-7 AMB Questionnaire RONNIE-7 Date RONNIE - 7 assessed: 09/08/22 Source: Developed by Drs. Lacho Katz, Alexa Vargas, Fidencio Bergeron and colleagues, with an educational glen from [employer]. Review of Systems Const Reports as per HPI Physical exam (Primary Care) Vital Signs: Last Vital Signs Pulse 80 04/26/23 16:06 BP 106/70 04/26/23 16:06 Pulse Ox 98 04/26/23 16:06 Oxygen Delivery Method Room Air 04/26/23 16:06 BMI result Body Mass Index 29.1 Tobacco/Smoking Status: Tobacco use Status Tobacco use date assessed 09/08/22 04/26/23 16:05 Patient Tobacco Use Status Never used Tobacco 04/26/23 16:05 e-Cigarette/Vaping Use Never Used 04/26/23 16:05 Thrive Assessment: Date of Thrive Assessment Date Thrive assessed 09/08/22 04/26/23 16:05 Const General: cooperative Orientation/consciousness: patient oriented x3 Resp Effort & Inspection: normal respiratory effort Auscultation: clear to auscultation bilaterally Cardio Rate: regular rate Rhythm: regular rhythm Heart sounds: S1 normal heart sound present and S2 normal heart sound present Back/Spine/Pelvis Other: able to heel and toe walk, no pain or radiculopathy with pt in supine position with bilat knee to chest raises and entire LE raises Neuro General: patient oriented x3 Psych Appearance: grossly normal Mental Status: mental status grossly normal Speech and movement: Normal speech and movement present Affect: normal affect Attitude: cooperative Thought process: Normal thought process present Thought content: Normal thought content present Insight: Good insight present (Psych) Judgement: Good judgement present (Psych) Results AMB Urinalysis, Automated UA Leukoctes 0 Audra/uL Last Edit by Zhang Combs [facility] on 04/26/23 16:58 UA Nitrite Negative Last Edit by Zhang Combs [facility] on 04/26/23 16:58 UA Urobilinogen 0 mg/dL Last Edit by Zhang Combs [facility] on 04/26/23 16: 58 UA Protein 0 mg/dL Last Edit by Zhang Combs [facility] on 04/26/23 16:58 UA pH 6.0 Last Edit by Zhang Combs [facility] on 04/26/23 16:58 UA Blood 0 Cosme/uL Last Edit by Zhang Combs [facility] on 04/26/23 16:58 UA Specific [place] 1.010 Last Edit by Zhang Combs [facility] on 04/26/23 16:58 UA Ketone Negative Last Edit by Zhang Combs [facility] on 04/26/23 16:58 UA Bilirubin 0 mg/dL Last Edit by BenitaTamie Combs [facility] on 04/26/23 16:58 UA Glucose 0 mg/dL Last Edit by BenitaTamie Combs [facility] on 04/26/23 16:58 Results Reviewed Results Reviewed: Laboratory Last Values Urine pH (Auto) 6.0 04/26/23 16:56 Specific [place] (Auto) 1.010 04/26/23 16:56 Urine Protein (Auto) 0 mg/dL 04/26/23 16:56 Glucose (UA)(Auto) 0 mg/dL 04/26/23 16:56 Urine Ketones (Auto) Negative 04/26/23 16:56 Urine Blood (Auto) 0 Cosme/uL 04/26/23 16:56 Urine Nitrite (Auto) Negative 04/26/23 16:56 Urine Bilirubin (Auto) 0 mg/dL 04/26/23 16:56 Urine Urobilinogen (Auto) 0 mg/dL 04/26/23 16:56 Leukocyte Esterase (Auto) 0 Audra/uL 04/26/23 16:56 Assessment and Plan Assessment & Plan (1) Chronic lower back pain: Code(s): M54.50 - Low back pain, unspecified; G89.29 - Other chronic pain Plan: XR ordered, referred to PT (2) Coccyx pain: Code(s): M53.3 - Sacrococcygeal disorders, not elsewhere classified (3) Dyslipidemia: Code(s): E78.5 - Hyperlipidemia, unspecified Plan The patient agreed to the use of a medical affairs specialist for this encounter. Scribed for CAPRICE Turner- by Jannette Cobb medical affairs specialist, on 04/26/2023 at 16:15 EST. Orders: Orders XR lumbar spine 2-3V Today G89.29 - Other chronic pain, M54.50 - Low back pain, unspecified XR sacrum coccyx min 2V Today M53.3 - Sacrococcygeal disorders, not elsewhere classified AMB Urinalysis Automated Today Z13.9 - Encounter for screening, unspecified Lipid Panel 2 Months E78.5 - Hyperlipidemia, unspecified PT Evaluation and Treatment Today G89.29 - Other chronic pain, M54.50 - Low back pain, unspecified Coding Level of Care Code Est Pt Level 3 (24605) Diagnoses Chronic lower back pain M54.50; G89.29 Coccyx pain M53.3 Dyslipidemia E78.5
[2023-04-26 16:06] VITALS: BP 106/70; PULSE 80; O2SAT 98; BMI 29.1
== END 2023-04-26 17:11 | disposition home or self-care (01) ==
PROVIDERS: PCP Nurse Practitioner Family; Visit Provider Nurse Practitioner Family
DX: M54.50 Low back pain, unspecified (principal); G89.29 Other chronic pain; M53.3 Sacrococcygeal disorders, not elsewhere classified; E78.5 Hyperlipidemia, unspecified
CPT/HCPCS: 81003; 99213

== ENCOUNTER 2023-06-04 13:39 | Outpatient (REF) | payer OTHER, SELFPAY ==
--- NOTE | ~2023-06-04 | US_ITS ---
EXAMINATION: US PELVIS CLINICAL INFORMATION: Follow-up imaging. LMP 6 months ago. COMPARISON: 06/22/2022 TECHNIQUE: Ultrasound of the pelvis is performed using both transabdominal and transvaginal transducers along with Doppler. Transvaginal imaging is performed due to inadequate visualization transabdominally. FINDINGS: Uterus: The uterus is anteverted. Uterine echotexture is heterogeneous. The uterus measures 6.8 x 2.7 x 3.3 cm. The endometrial stripe measures 2 mm in thickness. Small anterior fibroid measures 5 x 3 x 4 mm. Previously demonstrated right upper body fibroid is not seen. Cervical nabothian cysts are present. Adnexa: The right ovary measures 1.8 x 1.7 x 1.4 cm and is best seen transabdominally. The left ovary is not well seen. There is no pelvic ascites or fluid collection. US/US pelvic and transvaginal IMPRESSION: No acute abnormality.
[2023-06-04 15:36] LABS: Estimated Average Glucose 94 mg/dL; Hemoglobin A1c % 4.9 % (<6.0)
[2023-06-04 16:16] LABS: Vitamin D 25-OH Total 24.9 ng/mL (>30)
[2023-06-04 16:34] LABS: Folate 12.5 ng/mL (> or = 4.0)
[2023-06-04 16:43] LABS: Vitamin B12 909 pg/mL (200-900)
== END 2023-06-04 13:40 | disposition home or self-care (01) ==
LOC: HO.US 13:39
PROVIDERS: Absent Provider Nurse Practitioner; PCP Nurse Practitioner Family; Visit Provider Advanced Practice Midwife
DX: D21.9 Benign neoplasm of connective and other soft tissue, unspecified (principal); F33.1 Major depressive disorder, recurrent, moderate
CPT/HCPCS: 36415; 76830; 76856; 82306; 82607; 82746; 83036

== ENCOUNTER 2023-06-17 09:02 | Outpatient (REF) | payer OTHER, SELFPAY ==
--- NOTE | 2023-06-17 09:16 | EMG_ITS ---
Bilateral median and ulnar motor and sensory studies were performed. Bilateral radial sensory studies were performed and right paraspinals were tested. She did not tolerate needle examination, and it was terminated. IMPRESSION: 1. [id number] bilateral median neuropathy across carpal tunnel. 2. Mild bilateral ulnar neuropathy across cubital tunnel. 3. Radiculopathy could not be completely ruled out as she did not tolerate needle examination. MD JEANCARLOS Rico/ROSANNA / [phone]
== END 2023-06-17 09:03 | disposition home or self-care (01) ==
LOC: HO.NEURO 09:02
PROVIDERS: PCP Nurse Practitioner Family; Visit Provider Nurse Practitioner Family
DX: R20.0 Anesthesia of skin (principal)
CPT/HCPCS: 95886; 95911

== ENCOUNTER 2023-06-28 09:55 | Outpatient (AMB) | payer OTHER, SELFPAY ==
--- NOTE | 2023-06-28 09:56 | MHC.PC.OV ---
Vital Signs 06/28/23 09:57 Height 5 ft 1 in Weight 159 lb BMI 30.0 BP 112/62 Blood Pressure Location Lt brachial Position Sitting Pulse 77 Pulse Source Pulse Oximeter Pulse Oximetry (%) 98 Oxygen Delivery Method Room Air Intake Visit Reasons: Depression Intake Note: pt is here for follow up for depression Emergency Medcl Emt Required: No Accompanied by: Self / Same As Patient Allergies No Known Allergies [No Known Allergies*] Allergy (Verified 06/28/23 10:23) Medication List - Last Reconciled 06/28/23 by RITIKA Muñoz emtricitabine-tenofovir (TDF) 200-300 mg (Truvada) 1 tab PO DAILY gabapentin 300 mg PO BID 30 days omeprazole 40 mg PO DAILY ondansetron 4 mg PO Q6H PRN raltegravir 400 mg PO BID TENS unit and electrodes use daily for back pain venlafaxine ER 150 mg PO DAILY venlafaxine ER 75 mg PO DAILY Tobacco use date assessed: 06/28/23 Dental Screening Dental Screen Date: 06/28/23 Did you have a dental visit in the last 12 months?: No Did you have a dental problem in the last 6 months where you did not have access to dental care?: No Was dental information given to patient?: Yes HPI Depression HPI Details 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 Depression: Pt is currently taking venlafaxine. She is seeing a therapist but does not like who she is seeing. Pt does want a new therapist, I will place a contact out to our team to assist with this. She is seeing a psychiatrist. Pt was recently in an inpatient facility in March. Denies any SI and HI. She reports doing fairly well, as of lately.She has, in the past, been so depressed she would and could not get out of bed. She currently is not employed. She further mentioned she does have a lot of stress related to her 14 year old daughter, though pt reports feeling safe (is not threatened by her daughter) [facility] Medical History (Updated 06/28/23 @ 10:28 by RITIKA Muñoz) Arthritis H/O degenerative disc disease PTSD (post-traumatic stress disorder) Uterine fibroid History of right breast cancer Depression Anxiety Anemia Surgical History History of lumpectomy of right breast Hx of dilation and curettage Hx of section Family History Family/Other Colon cancer Maternal Uncle Lung cancer Father Prostate CA Social History Housing: Apartment Alcohol intake: never Patient Tobacco Use Status: Never used Tobacco e-Cigarette/Vaping Use: Never Used Second Hand Smoke Exposure: No Substance Use Type: Marijuana service: No Current occupational status: employed Current occupation: [employer] Current occupational exposures/hazards: No Sexual orientation: Straight/Heterosexual Gender identity: Female Cognitive needs: No Hearing needs: No Vision needs: Yes Female Reproductive History Menstrual Age of Menarche: 8 Questionnaire PHQ-9 Over the last 2 weeks, how often have you been bothered by any of the following problems? 1. Little interest or pleasure in doing things: more than half the days 2. Feeling down, depressed, or hopeless: nearly every day 3. Trouble falling or staying asleep, or sleeping too much: nearly every day 4. Feeling tired or having little energy: nearly every day 5. Poor appetite or overeating: nearly every day 6. Feeling bad about yourself - or that you are a failure or have let yourself or your family down: nearly every day 7. Trouble concentrating on things, such as reading the newspaper or watching television: nearly every day 8. Moving or speaking so slowly that other people could have noticed. Or the opposite - being so fidgety or restless that you have been moving around a lot more than usual: nearly every day 9. Thoughts that you would be better off or of hurting yourself in some way: nearly every day Total score: 26 Depression Screening Interpretation: Positive (denies any SI or HI) Depression Screening Follow-up: Existing condition and In treatment Depression Screening Done: Yes 00750 - PHQ-9 Billing: Yes Source: Developed by Drs. Lacho Katz, Alexa Vargas, Fidencio Bergeron and colleagues, with an educational glen from [employer]. Thrive Questionnaire Date Thrive assessed: 06/28/23 I am a: Patient What is your living situation today?: I have a steady place to live Within the past 12 months, did the food you bought not last and you didn't have the money to get more?: Never true Within the past 12 months, did you worry whether your food would run out before you got money to buy more?: Never true Do you have trouble paying for medicines?: No Do you have trouble getting transportation to medical appointments?: No Do you have trouble paying your heating and electricity bill?: No Do you have trouble taking care of your child, family member or friend?: No Do you have trouble with day-to-day activities such as bathing, preparing meals, shopping, managing finances, etc.?: No Are you currently unemployed and looking for a job?: No Are you interested in more education?: No Please select the resources that you would like help with: None Currently or been in a relationship where the following occur: no concerns reported THRIVE Score: 0 AUDIT C Alcohol Use Questionnaire (AUDIT-C) 1. How often do you have a drink containing alcohol?: Never 3. How often do you have six or more drinks on one occasion?: Never Total Score: 0 Score Reviewed/Action Taken: Yes RONNIE-7 AMB Questionnaire RONNIE-7 Date RONNIE - 7 assessed: 06/28/23 Feeling nervous, anxious, or on edge: 3 = Nearly every day Not being able to stop or control worryin = Nearly every day Worrying too much about different things: 3 = Nearly every day Trouble relaxin = Nearly every day Being so restless that it is hard to sit still: 2 = More than half the days Becoming easily annoyed or irritable: 3 = Nearly every day Feeling afraid as if something awful might happen: 3 = Nearly every day Total RNONIE-7 score (0-4 normal; 5-9 mild; 10-14 moderate; 15-21 severe): 20 Source: Developed by Drs. Lacho Katz, Alexa Vargas, Fidencio Bergeron and colleagues, with an educational glen from [employer]. RONNIE-7 Assessment Billing RONNIE-7 Assessment Tool: RONNIE-7 Assessment 68319 Review of Systems Const Reports as per HPI Physical exam (Primary Care) Vital Signs: Last Vital Signs Pulse 77 06/28/23 09:57 BP 112/62 06/28/23 09:57 Pulse Ox 98 02/19/24 09:57 Oxygen Delivery Method Room Air 06/28/23 09:57 BMI result Body Mass Index 30.0 Tobacco/Smoking Status: Tobacco use Status Tobacco use date assessed 06/28/23 06/28/23 09:59 Patient Tobacco Use Status Never used Tobacco 06/28/23 09:59 e-Cigarette/Vaping Use Never Used 06/28/23 09:59 PHQ-9: PHQ-9 Score PHQ-9: Total score 26 06/28/23 10:50 Depression Screening Interpretation: Positive (denies any SI or HI) Depression Screening Follow-up: Existing condition and In treatment Thrive Assessment: Date of Thrive Assessment Date Thrive assessed 06/28/23 06/28/23 10:05 Currently or been in a relationship where the following occur: no concerns reported Const General: cooperative Orientation/consciousness: patient oriented x3 Resp Effort & Inspection: normal respiratory effort Auscultation: clear to auscultation bilaterally Cardio Rate: regular rate Rhythm: regular rhythm Heart sounds: S1 normal heart sound present and S2 normal heart sound present Neuro General: patient oriented x3 Psych Appearance: grossly normal Mental Status: mental status grossly normal Speech and movement: Normal speech and movement present Affect: normal affect Attitude: cooperative Thought process: Normal thought process present Thought content: Normal thought content present Insight: Good insight present (Psych) Judgement: Good judgement present (Psych) Assessment and Plan Assessment & Plan (1) Depression: Code(s): F32.9 - Major depressive disorder, single episode, unspecified Plan: Will reach out to team regarding a new therapist. pt will cont with her current psychiatrist (2) Physical exam: Code(s): Z00.00 - Encounter for general adult medical examination without abnormal findings Plan: Labs ordered Plan The patient agreed to the use of a medical technologist microbiology for this encounter. Scribed for RITIKA Turner by Jannette Cobb medical technologist microbiology, on 06/28/2023 at 10:15 EST. Orders: Orders Complete Blood Count Auto Diff Today Z00.00 - Encounter for general adult medical examination without abnormal findings Comprehensive [place]. Panel Fast Today Z00.00 - Encounter for general adult medical examination without abnormal findings TSH reflex Free T4 Today Z00.00 - Encounter for general adult medical examination without abnormal findings UA CC w/rflx Micro + Cult Today Z00.00 - Encounter for general adult medical examination without abnormal findings Lipid Panel Today Z00.00 - Encounter for general adult medical examination without abnormal findings Coding Level of Care Code Est Pt Level 3 (73799) Diagnoses Depression F32.9 Physical exam Z00.00 Additional Codes RONNIE-7 Assessment Billing - RONNIE-7 Assessment Tool: RONNIE-7 Assessment 37606 ([id number])
[2023-06-28 09:57] VITALS: BP 112/62; PULSE 77; O2SAT 98
== END 2023-06-28 12:16 | disposition home or self-care (01) ==
PROVIDERS: PCP Nurse Practitioner Family; Visit Provider Nurse Practitioner Family
DX: Z00.00 Encounter for general adult medical examination without abnormal findings (principal); F32.9 Major depressive disorder, single episode, unspecified
CPT/HCPCS: 99396

== ENCOUNTER 2023-07-07 09:24 | Outpatient (AMB) | payer OTHER, SELFPAY ==
[2023-07-07 09:28] VITALS: BP 126/78; PULSE 76; RESP 15; TEMP 36.4; O2SAT 98; BMI 32.4
--- NOTE | 2023-07-07 09:28 | A.OFFVIS_ITS ---
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 Griggs 42-year-old female comes today for initial evaluation of multiple joint pain. The patient reports she has pain all over my body , for the past 2 years to her hands, wrist, knees, arms, ankles, toes, neck, elbows, shoulders, back, tailbone, buttocks, legs, feet. She reports hand swelling that causes her fingers to feel tight and stiff in the morning but resolves once she gets moving. She does not think the pain is with sudden onset but has happened gradually. She has done massages, physical therapy, hot packs, and cold packs that offer some relief. She currently takes gabapentin 300 mg b.i.d. that was prescribed for her back pain but says it helps with her overall pain. She also has a 10s unit that she use occasionally that does help 01/23/2022 visit to walk-in clinic 41-year-old female presents with left-si ded lower back pain that at time radiates down her left lower extremity just above the knee and or into her groin, patient tells me pain is worse with movement better at rest. She tells me she has had back pain like this before however never this bad. Patient tells me that she feels like this started after she slept the wrong way. Patient reports shooting like sensation from back to just above the knee. Denies any blunt trauma to the area. Patient denies IV drug abuse. Patient denies fevers, chills, chest pain, shortness of breath, nausea, vomiting, urinary/bowel incontinence/retention, weakness, saddle paresthesias, numbness or tingling. Physical examination benign. Neuro exam nonfocal. Cerebellar function intact. Likely sciatica. Other differentials include lumbar sprain/strain or lumbar radiculopathy. Unlikely cauda equina or epidural abscess. Plan at this time is to discharge patient home on naproxen, cyclobenzaprine and Lidoderm patches. Advised to return with new or worsening symptoms, educated on worrisome signs and symptoms and when to return. At time of discharge patient ambulating with steady gait, normal coordination, no difficulties. Educated her that she may require an MRI in the future for further evaluation of her symptoms Patient is already on narcotics, tramadol therefore I will not prescribe a narcotic medication to this patient. [facility] Medical History (Updated 07/07/23 @ 12:06 by Emelia Batista [facility]) Pain of right great toe Pain in joint involving multiple sites Arthritis H/O degenerative disc disease PTSD (post-traumatic stress disorder) Uterine fibroid History of right breast cancer Depression Anxiety Anemia Surgical History History of lumpectomy of right breast Hx of dilation and curettage Hx of section Family History Family/Other Colon cancer Maternal Uncle Lung cancer Father Prostate CA Social History Housing: Apartment Alcohol intake: never Patient Tobacco Use Status: Never used Tobacco e-Cigarette/Vaping Use: Never Used Second Hand Smoke Exposure: No Substance Use Type: Marijuana service: No Current occupational status: employed Current occupation: [employer] Current occupational exposures/hazards: No Sexual orientation: Straight/Heterosexual Gender identity: Female Cognitive needs: No Hearing needs: No Vision needs: Yes Female Reproductive History Menstrual Age of Menarche: 8 Review of Systems Const All systems reviewed & are unremarkable except as noted in HPI and below Physical Exam Vital Signs: Last Vital Signs Temp 97.6 F 07/07/23 09:28 Pulse 76 07/07/23 09:28 Resp 15 07/07/23 09:28 BP 126/78 07/07/23 09:28 Pulse Ox 98 07/07/23 09:28 Oxygen Delivery Method Room Air 07/07/23 09:28 BMI result Body Mass Index 32.4 APPEARANCE: Patient in no acute distress EYES no redness, normal EARS:? External ear normal. NOSE/SINUS:? Airflow through both nares, no nasal discharge, no bleeding THROAT:? Oral mucosa moist, no ulcerations NECK:? No thyromegaly or masses, no adenopathy, trachea midline. HEART:? Regular rhythm, S1-S2 heard, no murmurs, rubs or gallops. LUNG:? Clear to percussion and auscultation EXTREMITIES:? No edema, no calf tenderness, normal peripheral pulses. NEURO:? Oriented and alert x3.? No focal weakness.? Reflexes symmetric.? Gait normal. SKIN:? There are no skin lesions evident. No objective signs of Raynaud's phenomenon. JOINT EXAM: Cervical Spine:.? Full range of motion without pain; no tenderness. Thoracic Spine:.? No scoliosis.? No tenderness on palpation. Lumbar Spine:.? Alignment normal.? Full range of motion with mild discomfort with stretch, mild tenderness paraspinal muscles Chest Wall:.? No tenderness, swelling, increased warmth or erythema. Hands:.? Normal pain-free range of motion without tenderness, swelling, increased warmth or erythema. 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 Wrists:.? Normal pain-free range of motion without tenderness, swelling, increased warmth or erythema. Elbows:. Normal pain-free range of motion without tenderness, swelling, increased warmth or erythema. Shoulders:.?? Full range of motion without pain. Tenderness but no weakness, sw elling, increased warmth or erythema. Hips:.? Full range of motion without pain. Hip bursa:.? Mild to moderate tenderness. Tenderness to thighs and buttock muscle Knees:.?? Normal pain-free range of motion with some tenderness, but no swelling, increased warmth or erythema.? There is no effusion or crepitation Ankles:.? Normal pain-free range of motion without tenderness, swelling, increased warmth or erythema. Feet:.? Normal pain-free range of motion without tenderness, swelling, increased warmth or erythema. Tender points:? Tenderness to digital palpation at the occiput, trapezius, sec ond rib, lateral epicondyle, knees, greater trochanter and gluteal area bilaterally. ? Results Reviewed Results Reviewed: Laboratory Tests 04/23/23 04/23/23 06/04/23 09:00 09:00 14:29 WBC 5.8 RBC 4.41 Hgb 12.4 Hct 39.1 AST 19 ALT 12 Vitamin B12 909 H 25-OH Vitamin D Total 24.9 L TSH 6.37 H Hepatitis A IgM Ab Nonreactive Hep Bs Antigen Negative Hep Bs Antibody REACTIVE Hep B Core Total Ab Nonreactive Hepatitis C Ab (EIA) Nonreactive HIV 1&2 Ab/P24 Ag 4thGn Nonreactive TB Test (T-Spot) Com Negative Assessment & Plan Assessment & Plan (1) Chronic lower back pain: Code(s): M54.50 - Low back pain, unspecified; G89.29 - Other chronic pain Qualifiers: Back pain laterality: right Sciatica laterality: sciatica of right side Sciatica presence: with sciatica Qualified Code(s): M54.41 - Lumbago with sciatica, right side; G89.29 - Other chronic pain (2) Pain of right great toe: Code(s): M79.674 - Pain in right toe(s) (3) Pain in joint involving multiple sites: Code(s): M25.50 - Pain in unspecified joint Plan #Joint Pain: Ms. Griggs here for evaluation of multiple joint pain. I do not see symptoms to suggest an inflammatory CTD process. On PE she appears to have all-over body pain, [id number] tenderness with palpation to all areas. She has severe tenderness to bilateral hip bursa and bilateral medial pes anserine bursa. The patient denies signs and symptoms of inflammatory and connective tissue processes. She denies red hot swollen joints, rashes, sun sensitivity, mouth sores and other common elements of CTD. I will obtain labs for further evaluation, x-rays of lumbar, hands, feet and knees as these joints are mostly problematic for her. I will also prescribe a course of prednisone for 3 weeks and reassess for any improvement at next visit in 5 weeks. #lower back pain with sciatica: The patient has been treated for sciatica. She takes gabapentin and has a 10s unit. The patient reports that the gabapentin she finds does help with her overall body pain. This suggest that she has an element of fibromyalgia. She should continue with gabapentin 300 mg b.i.d. I spent 45 minutes reviewing history, evaluating patient and documenting Follow-up in 5 weeks Orders: Orders Comprehensive Met. Panel 07/07/23 G89. - Other chronic pain, M25.50 - Pain in unspecified joint, M54.50 - Low back pain, unspecified C Reactive Protein 07/07/23 G89.29 - Other chronic pain, M25.50 - Pain in unspecified joint, M54.50 - Low back pain, unspecified Uric Acid 07/07/23 M79.674 - Pain in right toe(s) XR foot LT min 3V 07/07/23 M25.50 - Pain in unspecified joint XR knee RT 3V 07/07/23 M25.50 - Pain in unspecified joint XR hand LT min 3V 07/07/23 M25.50 - Pain in unspecified joint Aldolase 07/07/23 G89.29 - Other chronic pain, M25.50 - Pain in unspecified joint, M54.50 - Low back pain, unspecified GISELLE Reflex Titer and Pattern 07/07/23 G89.29 - Other chronic pain, M25.50 - Pain in unspecified joint, M54.50 - Low back pain, unspecified Anti DNA DS Antibody 07/07/23 G89.29 - Other chronic pain, M25.50 - Pain in unspecified joint, M54.50 - Low back pain, unspecified Anti Extractable Nuclear Ag 07/07/23 G89.29 - Other chronic pain, M25.50 - Pain in unspecified joint, M54.50 - Low back pain, unspecified Complete Blood Count Auto Diff 07/07/23 G89.29 - Other chronic pain, M25.50 - Pain in unspecified joint, M54.50 - Low back pain, unspecified Creatine Kinase Total 07/07/23 G89.29 - Other chronic pain, M25.50 - Pain in unspecified joint, M54.50 - Low back pain, unspecified Erythrocyte Sedimentation Rate 07/07/23 G89.29 - Other chronic pain, M25.50 - Pain in unspecified joint, M54.50 - Low back pain, unspecified Immunoglobulins,IgG IgA IgM 07/07/23 G89.29 - Other chronic pain, M25.50 - Pain in unspecified joint, M54.50 - Low back pain, unspecified XR foot RT min 3V 07/07/23 M25.50 - Pain in unspecified joint XR knee LT 3V 07/07/23 M25.50 - Pain in unspecified joint XR hand RT min 3V 07/07/23 M25.50 - Pain in unspecified joint XR lumbar spine 2-3V 07/07/23 M25.50 - Pain in unspecified joint Medications: New prednisone 3 tablets per day x 7 days 2 tablets per day x 7 days 1 tablet per day x 7 days. 45 tabs 0RF M25.50 - Pain in unspecified joint, M79.674 - Pain in right toe(s) Coding Level of Care Code New Pt Level 4 (14291) Diagnoses Chronic right-sided low back pain with right-sided sciatica M54.41; G89.29 Back pain laterality: right Sciatica laterality: sciatica of right side Sciatica presence: with sciatica Pain of right great toe M79.674 Pain in joint involving multiple sites M25.50
== END 2023-07-07 10:13 | disposition home or self-care (01) ==
LOC: HO.RHE 09:24
PROVIDERS: PCP Nurse Practitioner Family; Visit Provider Nurse Practitioner Family
DX: M54.41 Lumbago with sciatica, right side (principal); G89.29 Other chronic pain; M79.674 Pain in right toe(s); M25.50 Pain in unspecified joint
CPT/HCPCS: 99204

== ENCOUNTER 2023-07-07 09:24 | Outpatient (REF) | payer OTHER, SELFPAY ==
--- NOTE | ~2023-07-07 | XR_ITS ---
EXAMINATION: XR BILATERAL HANDS, BILATERAL KNEES, BILATERAL FEET CLINICAL INFORMATION: Joint pain. COMPARISON: Left hand and wrist 12/04/2020, Bilateral knees 08/14/2013. TECHNIQUE: 3 views each knee, 3 views each hand, 3 views each foot. FINDINGS: Bilateral Feet: No significant bone, joint or soft tissue abnormality is seen. A tiny plantar calcaneal spur is noted on the left. No fractures, dislocations or significant arthritic changes. Bilateral Knees: No bone, joint or soft tissue abnormality is seen. Bilateral Hands: No bone, joint or soft tissue abnormality is seen. XR/XR foot RT min 3V IMPRESSION: No evidence of an inflammatory arthropathy. A tiny plantar calcaneal spur is noted on the left.
--- NOTE | ~2023-07-07 | XR_ITS ---
EXAMINATION: XR BILATERAL HANDS, BILATERAL KNEES, BILATERAL FEET CLINICAL INFORMATION: Joint pain. COMPARISON: Left hand and wrist 12/04/2020, Bilateral knees 08/14/2013. TECHNIQUE: 3 views each knee, 3 views each hand, 3 views each foot. FINDINGS: Bilateral Feet: No significant bone, joint or soft tissue abnormality is seen. A tiny plantar calcaneal spur is noted on the left. No fractures, dislocations or significant arthritic changes. Bilateral Knees: No bone, joint or soft tissue abnormality is seen. Bilateral Hands: No bone, joint or soft tissue abnormality is seen. XR/XR foot LT min 3V IMPRESSION: No evidence of an inflammatory arthropathy. A tiny plantar calcaneal spur is noted on the left.
--- NOTE | ~2023-07-07 | XR_ITS ---
EXAMINATION: XR BILATERAL HANDS, BILATERAL KNEES, BILATERAL FEET CLINICAL INFORMATION: Joint pain. COMPARISON: Left hand and wrist 12/04/2020, Bilateral knees 08/14/2013. TECHNIQUE: 3 views each knee, 3 views each hand, 3 views each foot. FINDINGS: Bilateral Feet: No significant bone, joint or soft tissue abnormality is seen. A tiny plantar calcaneal spur is noted on the left. No fractures, dislocations or significant arthritic changes. Bilateral Knees: No bone, joint or soft tissue abnormality is seen. Bilateral Hands: No bone, joint or soft tissue abnormality is seen. XR/XR hand LT min 3V IMPRESSION: No evidence of an inflammatory arthropathy. A tiny plantar calcaneal spur is noted on the left.
--- NOTE | ~2023-07-07 | XR_ITS ---
EXAMINATION: XR BILATERAL HANDS, BILATERAL KNEES, BILATERAL FEET CLINICAL INFORMATION: Joint pain. COMPARISON: Left hand and wrist 12/04/2020, Bilateral knees 08/14/2013. TECHNIQUE: 3 views each knee, 3 views each hand, 3 views each foot. FINDINGS: Bilateral Feet: No significant bone, joint or soft tissue abnormality is seen. A tiny plantar calcaneal spur is noted on the left. No fractures, dislocations or significant arthritic changes. Bilateral Knees: No bone, joint or soft tissue abnormality is seen. Bilateral Hands: No bone, joint or soft tissue abnormality is seen. XR/XR hand RT min 3V IMPRESSION: No evidence of an inflammatory arthropathy. A tiny plantar calcaneal spur is noted on the left.
--- NOTE | ~2023-07-07 | XR_ITS ---
EXAMINATION: XR BILATERAL HANDS, BILATERAL KNEES, BILATERAL FEET CLINICAL INFORMATION: Joint pain. COMPARISON: Left hand and wrist 12/04/2020, Bilateral knees 08/14/2013. TECHNIQUE: 3 views each knee, 3 views each hand, 3 views each foot. FINDINGS: Bilateral Feet: No significant bone, joint or soft tissue abnormality is seen. A tiny plantar calcaneal spur is noted on the left. No fractures, dislocations or significant arthritic changes. Bilateral Knees: No bone, joint or soft tissue abnormality is seen. Bilateral Hands: No bone, joint or soft tissue abnormality is seen. XR/XR knee LT 3V IMPRESSION: No evidence of an inflammatory arthropathy. A tiny plantar calcaneal spur is noted on the left.
--- NOTE | ~2023-07-07 | XR_ITS ---
EXAMINATION: XR LUMBOSACRAL SPINE CLINICAL INFORMATION: Pain. COMPARISON: CT abdomen and pelvis 12/05/2022, lumbar spine radiographs 11/17/2016. TECHNIQUE: 3 views of the lumbosacral spine. FINDINGS: Again seen are mild degenerative changes in the lower thoracic spine. The lumbar vertebral bodies and posterior elements are normal. The lumbar disc spaces are preserved and the vertebral alignment is normal. The paraspinal soft tissues are normal. Incidental note made of a Lap-Band. XR/XR lumbar spine 2-3V IMPRESSION: Mild degenerative changes in the lower thoracic spine. No acute finding.
--- NOTE | ~2023-07-07 | XR_ITS ---
EXAMINATION: XR BILATERAL HANDS, BILATERAL KNEES, BILATERAL FEET CLINICAL INFORMATION: Joint pain. COMPARISON: Left hand and wrist 12/04/2020, Bilateral knees 08/14/2013. TECHNIQUE: 3 views each knee, 3 views each hand, 3 views each foot. FINDINGS: Bilateral Feet: No significant bone, joint or soft tissue abnormality is seen. A tiny plantar calcaneal spur is noted on the left. No fractures, dislocations or significant arthritic changes. Bilateral Knees: No bone, joint or soft tissue abnormality is seen. Bilateral Hands: No bone, joint or soft tissue abnormality is seen. XR/XR knee RT 3V IMPRESSION: No evidence of an inflammatory arthropathy. A tiny plantar calcaneal spur is noted on the left.
== END 2023-07-07 09:25 | disposition home or self-care (01) ==
LOC: HO.XRAY 09:24
PROVIDERS: Absent Provider Nurse Practitioner Family; PCP Nurse Practitioner Family; Visit Provider Nurse Practitioner Family
DX: M54.50 Low back pain, unspecified (principal); M25.561 Pain in right knee; M25.562 Pain in left knee; M79.642 Pain in left hand; M79.641 Pain in right hand; M79.672 Pain in left foot; M79.671 Pain in right foot
CPT/HCPCS: 72100; 73130; 73562; 73630; 99202

== ENCOUNTER 2023-07-07 10:40 | Outpatient (REF) | payer OTHER, SELFPAY ==
[2023-07-07 13:16] LABS: MANUAL DIFF FLAG NO
[2023-07-07 13:24] LABS: Basophils Percent Auto 0.5 % (0-2); Eosinophils Absolute Auto 0.2 X10*3/uL (0.0-0.4); Eosinophils Percent Auto 3.4 % (0-4); Imm Gran Abs Auto 0.01 X10*3/uL (0.00-0.03); Imm Gran Pct Auto 0.2 % (0.0-0.4); Lymphocytes Absolute Auto 1.5 X10*3/uL (1.2-4.9); Lymphocytes Percent Auto 22.7 % (20-40); Mean Corpuscular HGB Conc 32.4 g/dl (31.0-35.0); Mean Corpuscular Hemoglobin 28.6 pg (27.0-33.0); Mean Corpuscular Volume 88.3 fL (80.0-98.0); Mean Platelet Volume 9.5 fL (9.4-12.3); Monocytes Absolute Auto 0.4 X10*3/uL (0.1-1.2); Monocytes Percent Auto 5.5 % (2-11); Neutrophils Absolute Auto 4.4 x10*3/uL (2.0-8.3); Neutrophils Percent Auto 67.7 % (45-73); Platelet Count 219 X10*3/uL (160-400); Red Blood Count 4.19 X10*6/uL (4.20-5.50); Red Cell Distribution Width 13.2 % (11.0-16.0); White Blood Count 6.5 X10*3/uL (4.8-10.8)
[2023-07-07 13:41] LABS: Alanine Aminotransferase 9 U/L (0-31); Albumin Level 4.1 g/dL (3.5-5.0); Alkaline Phosphatase 66 U/L (39-117); Anion Gap 9 (12-20); Aspartate Amino Transferase 17 U/L (5-31); Bilirubin Total 0.4 mg/dL (0.0-1.0); Blood Urea Nitrogen 15 mg/dL (9-16); C Reactive Protein 0.35 mg/dL (< or = 0.50); Calcium 9.3 mg/dL (8.4-10.2); Carbon Dioxide 31 mmol/L (22-29); Chloride 103 mmol/L (96-108); Estimated Glomerular Filt Rate > 60; Glucose Random 83 mg/dL (60-115); Potassium 3.9 mmol/L (3.3-5.1); Sodium 139 mmol/L (135-145); Total Protein 7.2 g/dL (6.5-8.0)
[2023-07-07 14:13] LABS: Erythrocyte Sedimentation Rate 6 MM/HR (0-20)
[2023-07-08 18:50] LABS: Anti DNA DS Antibody <1 IU/mL; SM/Ribonucleoprotein Ab <1.0 NEG AI (<1.0 NEG); Smith Protein <1.0 NEG AI (<1.0 NEG)
[2023-07-08 20:17] LABS: IgA 192 mg/dL (47-310); IgG 1181 mg/dL (600-1640); IgM 104 mg/dL (50-300)
[2023-07-14 08:09] LABS: Aldolase 6.7 U/L (<=8.1)
[2023-07-15 10:33] LABS: Anti Nuclear Antibody Screen NEGATIVE (NEGATIVE)
== END 2023-07-07 10:41 | disposition home or self-care (01) ==
LOC: HO.10HDL 10:40
PROVIDERS: Visit Provider Nurse Practitioner Family
DX: M54.50 Low back pain, unspecified (principal); G89.29 Other chronic pain; M25.50 Pain in unspecified joint
CPT/HCPCS: 36415; 80053; 82085; 82550; 82784; 85025; 85652; 86038; 86140; 86225; 86235

== ENCOUNTER 2023-08-03 13:59 | Outpatient (AMB) | payer OTHER, SELFPAY ==
[2023-08-03 14:23] VITALS: BMI 32.3
--- NOTE | 2023-08-03 14:23 | MHC.OFFVIS ---
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 States her left is worse. CTS started about 3 months ago and has worsen. Reports symptoms are worse at night time. Patient has tried bracing temporarily . EMG done. 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 She complains of numbness in all her fingers bilaterally. Symptoms intermittent, but daily, worse at night. She says she feels limited in her daily activities by her numbness. She reports feeling some burning pain when her hands go numb. 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 [facility] Medical History (Updated 08/03/23 @ 15:11 by Fernando Steen) Pain of right great toe Pain in joint involving multiple sites Arthritis H/O degenerative disc disease PTSD (post-traumatic stress disorder) Uterine fibroid History of right breast cancer Depression Anxiety Anemia Surgical History History of lumpectomy of right breast Hx of dilation and curettage Hx of section Family History Family/Other Colon cancer Maternal Uncle Lung cancer Father Prostate CA Social History (Updated 08/03/23 @ 14:27 by JUAN LUIS Hanson) Housing: Apartment Alcohol intake: never Patient Tobacco Use Status: Never used Tobacco e-Cigarette/Vaping Use: Never Used Second Hand Smoke Exposure: No Substance Use Type: Marijuana service: No Current occupational status: unemployed 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 Current occupational exposures/hazards: No Sexual orientation: Straight/Heterosexual Gender identity: Female Cognitive needs: No Hearing needs: No Vision needs: Yes Female Reproductive History Menstrual Age of Menarche: 8 Review of Systems Const All systems reviewed & are unremarkable except as noted in HPI and below Physical Exam Vital Signs: BMI result Body Mass Index 32.3 Const General: cooperative, healthy appearing and no acute distress Orientation/consciousness: patient oriented x3 HEENT Head: Yes normocephalic and Yes atraumatic Eyes EOM: EOMs intact bilaterally Resp Effort & Inspection: normal respiratory effort and able to speak in complete sentences Cardio Jugular venous distension: no JVD Skin General skin exam: turgor normal Rashes: no rashes Neuro General: patient oriented x3 Extrem Other: Evaluation of Bilateral Upper Extremity: The patient is alert, oriented, and in no acute distress Neuro: Median, Ulnar, Radial nerves motor and sensory intact and sensation is normal to the tips of all digits today in clinic No thenar or intrinsic wasting Good APB muscle belly firing and good finger cross Vascular: Cap refill brisk ROM: She can make a fist and extend all her digits No locking or catching Skin: No lacerations or abrasions. General: No Ecchymosis. No Erythema or evidence of infection. Radiographs: IMPRESSION: 1. [id number]-dhyuswca bilateral median neuropathy across carpal tunnel. 2. Mild bilateral ulnar neuropathy across cubital tunnel. 3. Radiculopathy could not be completely ruled out as she did not tolerate needle examination. Debora Cam MD 06/17/2023 Psych Appearance: grossly normal Affect: normal affect Attitude: cooperative Assessment & Plan Assessment & Plan (1) Carpal tunnel syndrome on both sides: Code(s): G56.03 - Carpal tunnel syndrome, bilateral upper limbs (2) Cubital tunnel syndrome, bilateral: Code(s): G56.23 - Lesion of ulnar nerve, bilateral upper limbs Plan Assessment & Plan: 1. Left carpal tunnel syndrome, mild-moderate Symptoms intermittent, but daily, worse at night 2. Left cubital tunnel syndrome, mild Symptoms intermittent, but daily, worse at night I educated her about this condition I discussed operative and non-operative treatment options The patient would like to proceed with surgery, beginning with her left hand The risks and benefits of operative treatment were discussed with the patient and the patient wishes to proceed with surgery. These risks include, but are not limited to risk of damage to blood vessels, nerves, tendons, infection, recurrence, incomplete relief of preoperative symptoms, persistent pain, possible need for further surgery and the risks associated with regional blocks and anesthesia. The plan is to take the patient to the operating room sometime in the next few weeks for the following procedures: 1. Left carpal tunnel release, under general 2. Left cubital tunnel release vs transposition, under general All of the preoperative paperwork including the consent was reviewed today. All the patient's questions were answered. The patient understands that they will be contacted by our slime plant operator soon to schedule this procedure She denies Diabetes, blood thinners, asthma, heart, lung, kidney issues She reports having a hx of GI upset from Percocets in the past. 3. Right carpal tunnel syndrome, mild-moderate Symptoms intermittent, but daily, worse at night 4. Right cubital tunnel syndrome, mild Symptoms intermittent, but daily, worse at night She will follow up to discuss treatment when her left hand has recovered from surgery Scribed for Karina Dickinson MD by Fernando Steen, medical information specialist, on 08/03/23 at 3:10 AM, EST. Coding Level of Care Code New Pt Level 4 (33121) Diagnoses Carpal tunnel syndrome on both sides G56.03 Cubital tunnel syndrome, bilateral G56.23
== END 2023-08-03 15:42 | disposition home or self-care (01) ==
PROVIDERS: PCP Nurse Practitioner Family; Visit Provider Orthopaedic Surgery
DX: G56.03 Carpal tunnel syndrome, bilateral upper limbs (principal); G56.23 Lesion of ulnar nerve, bilateral upper limbs
CPT/HCPCS: 99204

== ENCOUNTER → 2023-08-03 13:59 | Outpatient (BNVA) | payer OTHER, SELFPAY | PROVIDERS: PCP Nurse Practitioner Family; Visit Provider Orthopaedic Surgery | DX: G56.03 Carpal tunnel syndrome, bilateral upper limbs (principal); G56.23 Lesion of ulnar nerve, bilateral upper limbs | CPT/HCPCS: 99202 ==

== ENCOUNTER 2023-08-26 06:25 | Day surgery (SDC) | payer OTHER, SELFPAY ==
[2023-08-24 09:03] VITALS: BMI 32.3
[2023-08-26 06:56] VITALS: BP 151/80; PULSE 66; RESP 16; TEMP 36.3; O2SAT 100; BMI 34.2
[2023-08-26 07:00] VITALS: BMI 34.2
[2023-08-26 07:01] LABS: UPreg QC Valid YES; Urine Pregnancy NEGATIVE (NEGATIVE)
--- NOTE | 2023-08-26 08:10 | W.PM.OPN ---
Operative Note Operative Note Date of Service: 08/26/23 Narrative: Preop diagnosis: 1. Left Carpal tunnel syndrome Postop diagnosis: same Procedure: 1. Left Carpal tunnel release Surgeon: Karina Dickinson MD Anesthesia: local block using 1% lidocaine with epinephrine Findings: Thickened transverse carpal ligament. EBL: Less than 5 mL Specimens: None Complications: None Disposition: Brought to recovery room in stable condition Plan: Follow-up for 10-14 days for wound check and suture removal Indications: The patient is 43 years old, with left carpal tunnel syndrome that has been unresponsive to nonoperative management. The risks and benefits of operative treatment including but not limited to risk of damage to blood vessels, nerves, tendons, infection, persistent pain, persistent symptoms, or possible need for additional surgery were discussed with the patient and the patient wishes to proceed with surgery. Procedure: Once consent was obtained a local block was performed using a combination of 1% lidocaine with epinephrine. The patient was then brought back to the operating suite and placed on the operative table in supine position. The left upper extremity was prepped and draped in a standard surgical fashion. Once assured that we had a good block, a 2.0 cm longitudinal incision was made centered over the carpal tunnel. The incision was made through the skin to the subcutaneous tissues using a #15 blade. Dissection was made down to the level of the transverse carpal ligament with care being taken to protect the palmar cutaneous nerve. Once the transverse carpal ligament was clearly visualized, a longitudinal incision was made in the transverse carpal ligament 1st using a #15 blade, then using tenotomy scissors under direct visualization. Care was taken to look for and protect the motor branch of the median nerve when seen in this area. Once satisfied with our carpal tunnel release the wound was copiously irrigated with normal saline and hemostasis was obtained with a brief period of local pressure. The skin edges were reapproximated with some 5.0 nylon suture material and a sterile dressing was applied. The patient appears to have tolerated the procedure well and with no complications. All digits were well vascularized at the conclusion of the case.
--- NOTE | 2023-08-26 08:14 | MHC.SHP ---
Pre-Procedural Eval Section A - 24 Hr Update-Section A only Date of Service: 08/26/23 The patient is an INPATIENT: No Changes since office visit: No Cold of Flu in the past 2 weeks, No New Medical Problems, No Changes in Medication and No Patient answered all questions The patient has been examined within 24 hours of the surgical procedure. The History & Physical has been completed within 30 days and I have reviewed it.: Yes Section B - Complete if H&P > 30 days Chief Complaint: Carpal tunnel syndrome, bilateral upper limbs Allergies: Allergies Allergy/AdvReac Type Severity Reaction Status Date / Time No Known Allergies Allergy Verified 08/03/23 14:28 [No Known Allergies*] Exam Exam Comment: The patient reports that she gets numbness and tingling in her left small finger only rarely, where she is getting daily numbness and tingling in the median nerve distribution. She would like to proceed only with the carpal tunnel release and not the cubital tunnel release at this time. Plan Diagnosis/Plan: Change I have reviewed the history and physical and performed a pertinent physical examination on my patient. No changes have occurred unless specified. We have changed the consent to proceed with a left carpal tunnel release only. We are cancelling the cubital tunnel release procedure Time Spent With Patient Time: Total time managing care of this patient today ____ minutes.
[2023-08-26 08:50] VITALS: BP 111/68; PULSE 61; RESP 16; O2SAT 97
== END 2023-08-26 09:09 | disposition home or self-care (01) ==
PROVIDERS: Anesthesiology; PCP Nurse Practitioner Family; Visit Provider Orthopaedic Surgery
PROC: (CPT 64721; principal; 2023-08-26 07:30)
DX: G56.02 Carpal tunnel syndrome, left upper limb (principal); R20.0 Anesthesia of skin; M19.90 Unspecified osteoarthritis, unspecified site; D64.9 Anemia, unspecified; F32.A Depression, unspecified; F41.9 Anxiety disorder, unspecified; F43.10 Post-traumatic stress disorder, unspecified; Z85.3 Personal history of malignant neoplasm of breast; Z98.890 Other specified postprocedural states; Z56.0 Unemployment, unspecified
CPT/HCPCS: 64721; 81025; J1100; J1170; J2250; J2405; J2704; J2795; J3010

== ENCOUNTER → 2023-08-26 06:25 | Outpatient (BNV) | payer OTHER, SELFPAY | PROVIDERS: PCP Nurse Practitioner Family; Visit Provider Orthopaedic Surgery | DX: G56.02 Carpal tunnel syndrome, left upper limb (principal) | CPT/HCPCS: 64721 ==

== ENCOUNTER 2023-09-08 14:10 | Outpatient (AMB) | payer OTHER, SELFPAY ==
--- NOTE | 2023-09-08 14:28 | MHC.OFFVIS ---
Vital Signs 09/08/23 14:29 Height 5 ft 1 in Weight 180 lb BMI 34.0 Intake Visit Reasons: PO LT CTR cubital 08/26/23 AR Intake Note: Indu 43 yr old female presents today for her P/O visit for her left CTR. States her symptoms have [id number] and is doing well. Sutures removed and steri strips applied. States she will call us when she is ready to have her right hand done. Allergies No Known Allergies [No Known Allergies*] Allergy (Verified 09/08/23 14:36) HPI HPI PO LT CTR cubital 08/26/23 AR: Details: Indu is a 43 year old right hand dominant woman who returns S/P left carpal tunnel release, DOS: 08/26/23 She says she is doing well. Her sensation has been improving, but is still not yet normal. She says she had good relief of her nighttime symptoms. She says her left small finger numbness occurs only rarely and she did not want to proceed with a cubital tunnel release on her DOS. She complains of numbness in the right median nerve distribution. Symptoms intermittent, but daily, worse at night. 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 [facility] Medical History (Updated 08/03/23 @ 15:11 by Fernando Steen) Pain of right great toe Pain in joint involving multiple sites Arthritis H/O degenerative disc disease PTSD (post-traumatic stress disorder) Uterine fibroid History of right breast cancer Depression Anxiety Anemia Surgical History (Updated 08/24/23 @ 09:04 by Kamille Fairchild RN) H/O colonoscopy History of lumpectomy of right breast Hx of dilation and curettage Hx of section Family History Family/Other Colon cancer Maternal Uncle Lung cancer Father Prostate CA Social History Housing: Apartment Alcohol intake: never Patient Tobacco Use Status: Never used Tobacco e-Cigarette/Vaping Use: Never Used Second Hand Smoke Exposure: No Substance Use Type: Marijuana service: No Current occupational status: unemployed 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 Current occupational exposures/hazards: No Sexual orientation: Straight/Heterosexual Gender identity: Female Cognitive needs: No Hearing needs: No Vision needs: Yes Female Reproductive History Menstrual Age of Menarche: 8 Review of Systems Const All systems reviewed & are unremarkable except as noted in HPI and below Physical Exam Vital Signs: BMI result Body Mass Index 34.0 Const General: no acute distress and alert Orientation/consciousness: patient oriented x3 Neuro General: patient oriented x3 Extrem Other: The patient was alert oriented and in no acute distress The incision is healing well with no erythema drainage or evidence of infection. Sutures removed and Steri-Strips applied She can make a fist and extend all her digits Sensation is improving but not yet normal in the median nerve distribution Cap refill is brisk Nerve Conduction Study: IMPRESSION: 1. [id number] bilateral median neuropathy across carpal tunnel. 2. Mild bilateral ulnar neuropathy across cubital tunnel. 3. Radiculopathy could not be completely ruled out as she did not tolerate needle examination. Debora Cam MD 06/17/2023 Psych Appearance: grossly normal Affect: normal affect Attitude: cooperative Assessment & Plan Assessment & Plan (1) Carpal tunnel syndrome on both sides: Code(s): G56.03 - Carpal tunnel syndrome, bilateral upper limbs Category: Medical (2) Cubital tunnel syndrome, bilateral: Code(s): G56.23 - Lesion of ulnar nerve, bilateral upper limbs Category: Medical Plan Assessment & Plan: 1. Left carpal tunnel syndrome, S/P release DOS: 08/26/23 Pre-operative symptoms intermittent, but daily, worse at night Now with improving but not yet normal sensation, with good relief of her nighttime symptoms The patient appears to be doing well post-operatively I educated her about the post-operative course. I explained that it may take up to 9 months for her sensation to improve I discussed activity modifications, she is to lift nothing heavier than a cellphone for the next two weeks She will perform gentle ROM exercises at home She should avoid any underwater activities for the next 5 days She should gently massage about the incision site to reduce the risk of hypersensitivity She says she has not working at present 2. Left cubital tunnel syndrome, mild Symptoms intermittent and occasional This is not particularly bothersome for her On her DOS she said her small finger numbness occurred only rarely and she did not want to proceed with a cubital tunnel release. If her symptoms increase in frequency or severity she can follow up to discuss treatment options. 3. Right carpal tunnel syndrome, mild-moderate Symptoms intermittent, but daily, worse at night 4. Right cubital tunnel syndrome, mild Symptoms intermittent, but daily, worse at night She does not want to discuss surgery at this time She will contact the clinic to follow up when she would like to discuss. Scribed for Karina Dickinson MD by Fernando Steen, medical laboratory specialist, on 09/08/23 at 2:40 PM, EST. Coding Level of Care Code Global (72208) Diagnoses Carpal tunnel syndrome on both sides G56.03 Cubital tunnel syndrome, bilateral G56.23
[2023-09-08 14:29] VITALS: BMI 34.0
== END 2023-09-08 14:54 | disposition home or self-care (01) ==
PROVIDERS: PCP Nurse Practitioner Family; Visit Provider Orthopaedic Surgery
DX: G56.03 Carpal tunnel syndrome, bilateral upper limbs (principal); G56.23 Lesion of ulnar nerve, bilateral upper limbs
CPT/HCPCS: 99024

== ENCOUNTER → 2023-09-08 14:10 | Outpatient (BNVA) | payer OTHER, SELFPAY | PROVIDERS: PCP Nurse Practitioner Family; Visit Provider Orthopaedic Surgery | DX: G56.03 Carpal tunnel syndrome, bilateral upper limbs (principal); G56.23 Lesion of ulnar nerve, bilateral upper limbs; Z48.02 Encounter for removal of sutures | CPT/HCPCS: 99212 ==

== ENCOUNTER 2023-09-23 16:36 | Outpatient (AMB) | payer OTHER, SELFPAY ==
--- NOTE | 2023-09-23 16:37 | A.OFFPC_ITS ---
Vital Signs 09/23/23 16:39 Height 5 ft 1 in Weight 184 lb BMI 34.8 BP 116/76 Blood Pressure Location Lt brachial Position Sitting Pulse 71 Pulse Source Pulse Oximeter Pulse Oximetry (%) 96 Oxygen Delivery Method Room Air Intake Visit Reasons: Annual PE Intake Note: Pt is here today for for PE. Allergies No Known Allergies [No Known Allergies*] Allergy (Verified 09/23/23 16:42) Tobacco use date assessed: 09/23/23 Dental Screening Dental Screen Date: 06/28/23 HPI Annual PE HPI Details Pt is here for a PE. Will order labs. Mammo is up to date. 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 She has a hx of severe depression. Pt sees a therapist and a psychiatrist. Denies any SI and HI. She reports not being able to get out of bed some days due to body pains. Will look into COURT [employer]ANS[employer] services. Pt c/o increased fatigue, constipation, and hair loss. TSH was elevated in April, will recheck. Will order labs for this and body pains. [facility] Medical History (Updated 09/23/23 @ 17:42 by CAPRICE Muñoz-ZAHRA) Pain of right great toe Pain in joint involving multiple sites Arthritis H/O degenerative disc disease PTSD (post-traumatic stress disorder) Uterine fibroid History of right breast cancer Depression Anxiety Anemia Surgical History H/O colonoscopy History of lumpectomy of right breast Hx of dilation and curettage Hx of section Family History Family/Other Colon cancer Maternal Uncle Lung cancer Father Prostate CA Social History Housing: Apartment Alcohol intake: never Patient Tobacco Use Status: Never used Tobacco e-Cigarette/Vaping Use: Never Used Second Hand Smoke Exposure: No Substance Use Type: Marijuana service: No Current occupational status: unemployed 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 1. Little interest or pleasure in doing things: nearly every day 2. Feeling down, depressed, or hopeless: nearly every day 3. Trouble falling or staying asleep, or sleeping too much: nearly every day 4. Feeling tired or having little energy: nearly every day 5. Poor appetite or overeating: nearly every day 6. Feeling bad about yourself - or that you are a failure or have let yourself or your family down: nearly every day 7. Trouble concentrating on things, such as reading the newspaper or watching television: nearly every day 8. Moving or speaking so slowly that other people could have noticed. Or the opposite - being so fidgety or restless that you have been moving around a lot more than usual: not at all 9. Thoughts that you would be better off or of hurting yourself in some way: nearly every day Total score: 24 Depression Screening Interpretation: Positive (has a psychiatrist and therapist, denies any si or hi) Depression Screening Follow-up: Existing condition and In treatment Depression Screening Done: Yes 58134 - PHQ-9 Billing: Yes Source: Developed by Drs. Lacho Katz, Fidencio Cedillo and colleagues, with an educational glen from [employer]. Thrive Questionnaire Date Thrive assessed: 06/28/23 RONNIE-7 AMB Questionnaire RONNIE-7 Date RONNIE - 7 assessed: 06/28/23 Source: Developed by Alexa Redd Kurt Kroenke and colleagues, with an educational glen from [employer]. RONNIE-7 Assessment Billing RONNIE-7 Assessment Tool: pt declined-do not bill Review of Systems Const Denies chills and Denies fever(s) Eyes Denies blurry vision ENT Denies vertigo, Denies dizziness and Denies sore throat Card Denies chest pain at rest, Denies chest pain with activity, Denies diaphoresis, Denies dyspnea and Denies dyspnea on exertion Resp Denies cough, Denies dyspnea, Denies dyspnea on exertion and Denies wheezing GI Denies abdominal pain, Denies melena, Denies hematochezia, Denies constipation, Denies diarrhea and Denies loose stools Denies hematuria Musc Denies numbness and Denies tingling Skin/Breast Denies lesions Neuro Denies vertigo, Denies dizziness, Denies numbness and Denies tingling Psych Denies anxiety, Denies depression, Denies homicidal ideation, Denies suicidal ideation and Denies other (substance abuse) Aller/Immun Denies wheezing Physical exam (Primary Care) Vital Signs: Last Vital Signs Pulse 71 09/23/23 16:39 BP 116/76 09/23/23 16:39 Pulse Ox 96 09/23/23 16:39 Oxygen Delivery Method Room Air 09/23/23 16:39 BMI result Body Mass Index 34.8 Tobacco/Smoking Status: Tobacco use Status Tobacco use date assessed 09/23/23 09/23/23 16:44 Patient Tobacco Use Status Never used Tobacco 09/23/23 16:44 e-Cigarette/Vaping Use Never Used 09/23/23 16:38 PHQ-9: PHQ-9 Score PHQ-9: Total score 09/23/23 17:08 Depression Screening Interpretation: Positive (has a psychiatrist and therapist, denies any si or hi) Depression Screening Follow-up: Existing condition and In treatment Thrive Assessment: Date of Thrive Assessment Date Thrive assessed 06/28/23 09/23/23 16:38 Const General: cooperative Nutritional Appearance: well nourished Orientation/consciousness: patient oriented x3 HENMT Head: Yes normal to inspection, Yes normocephalic and Yes atraumatic Ears: TM's normal bilaterally Eyes General: appearance normal, both eyes and all related structures Alignment and Position: alignment normal and position normal Neck Neck: Yes normal visual inspection and Yes no lymphadenopathy Thyroid: Thyroid normal Resp Effort & Inspection: normal respiratory effort Auscultation: clear to auscultation bilaterally Cardio Rate: regular rate Rhythm: regular rhythm Heart sounds: S1 normal heart sound present, S2 normal heart sound present and no murmurs GI Palpation (GI): Soft to palpation and nontender Auscultation: normal bowel sounds Skin Rashes: no rashes Neuro General: patient oriented x3, moves all extremities, no focal motor deficits and deep tendon reflexes 2+ bilaterally Romberg Test: Negative Psych Appearance: grossly normal Mental Status: mental status grossly normal Speech and movement: Normal speech and movement present Affect: normal affect Attitude: cooperative Thought process: Normal thought process present Thought content: Normal thought content present Insight: Good insight present (Psych) Judgement: Good judgement present (Psych) Assessment and Plan Assessment & Plan (1) Fatigue: Code(s): R53.83 - Other fatigue Plan: Labs ordered, including re-ordered TSH (2) Body aches: Code(s): R52 - Pain, unspecified Plan: Labs ordered (3) Elevated TSH: Code(s): R79.89 - Other specified abnormal findings of blood chemistry Plan: recheck (4) Encounter for routine adult physical exam with abnormal findings: Code(s): Z00.01 - Encounter for general adult medical examination with abnormal findings (5) Positive screening for depression on 9-item Patient Health Questionnaire (PHQ-9): Code(s): Z13.31 - Encounter for screening for depression Plan: has a therapist and psychiatrist, denies any SI or HI Plan The patient agreed to the use of a medical insurance coding specialist for this encounter. Scribed for CAPRICE Turner- by Jannette Cobb medical insurance coding specialist, on 09/23/2023 at 16:50 EST. Orders: Orders Comprehensive Pioneer. Panel Fast Today R53.83 - Other fatigue UA CC w/rflx Micro + Cult Today R53.83 - Other fatigue GISELLE Reflex Titer and Pattern Today R52 - Pain, unspecified, R53.83 - Other fatigue Sjogren's Antibodies Today R52 - Pain, unspecified, R53.83 - Other fatigue Anti DNA DS Antibody Today R52 - Pain, unspecified, R53.83 - Other fatigue Complete Blood Count Auto Diff Today R53.83 - Other fatigue TSH reflex Free T4 Today R53.83 - Other fatigue Lipid Panel Today R53.83 - Other fatigue Rheumatoid Factor Today R52 - Pain, unspecified, R53.83 - Other fatigue Cyclic Citrullinated Peptide Today R52 - Pain, unspecified, R53.83 - Other fatigue Tick-borne Disease Molecular Today R52 - Pain, unspecified, R53.83 - Other fatigue DNA Double Stranded-Crithidia Today R52 - Pain, unspecified, R53.83 - Other fatigue Thyroid Peroxidase Antibodies Today R53.83 - Other fatigue, R79.89 - Other specified abnormal findings of blood chemistry Coding Level of Care Code Est Pt Prev Care 40-64y(22001) Diagnoses Fatigue R53.83 Body aches R52 Elevated TSH R79.89 Encounter for routine adult physical exam with abnormal findings Z00.01 Positive screening for depression on 9-item Patient Health Questionnaire (PHQ-9) Z13.31
[2023-09-23 16:39] VITALS: BP 116/76; PULSE 71; O2SAT 96; BMI 34.8
== END 2023-09-23 17:18 | disposition home or self-care (01) ==
PROVIDERS: PCP Nurse Practitioner Family; Visit Provider Nurse Practitioner Family
DX: Z00.00 Encounter for general adult medical examination without abnormal findings (principal); R53.83 Other fatigue; R52 Pain, unspecified; R79.89 Other specified abnormal findings of blood chemistry; Z13.31 Encounter for screening for depression
CPT/HCPCS: 99396

== ENCOUNTER 2023-11-15 08:51 | Outpatient (REF) | payer OTHER, SELFPAY ==
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
[2023-11-15 09:19] LABS: MANUAL DIFF FLAG NO
[2023-11-15 09:33] LABS: Basophils Percent Auto 0.5 % (0-2); Eosinophils Absolute Auto 0.2 X10*3/uL (0.0-0.4); Eosinophils Percent Auto 5.7 % (0-4); Hematocrit 37.3 % (37.0-47.0); Hemoglobin 12.3 g/dl (12.0-16.0); Imm Gran Abs Auto 0.02 X10*3/uL (0.00-0.03); Imm Gran Pct Auto 0.5 % (0.0-0.4); Lymphocytes Percent Auto 24.3 % (20-40); Mean Corpuscular Hemoglobin 28.5 pg (27.0-33.0); Mean Corpuscular Volume 86.3 fL (80.0-98.0); Mean Platelet Volume 9.7 fL (9.4-12.3); Monocytes Absolute Auto 0.2 X10*3/uL (0.1-1.2); Monocytes Percent Auto 5.2 % (2-11); Neutrophils Absolute Auto 2.6 x10*3/uL (2.0-8.3); Neutrophils Percent Auto 63.8 % (45-73); Platelet Count 205 X10*3/uL (160-400); Red Blood Count 4.32 X10*6/uL (4.20-5.50); Red Cell Distribution Width 16.1 % (11.0-16.0); White Blood Count 4.1 X10*3/uL (4.8-10.8)
[2023-11-15 10:04] LABS: Alanine Aminotransferase 15 U/L (0-31); Alkaline Phosphatase 57 U/L (39-117); Anion Gap 9 (12-20); Aspartate Amino Transferase 20 U/L (5-31); Bilirubin Total 0.4 mg/dL (0.0-1.0); Blood Urea Nitrogen 9 mg/dL (9-16); Calcium 8.8 mg/dL (8.4-10.2); Carbon Dioxide 29 mmol/L (22-29); Chloride 106 mmol/L (96-108); Cholesterol 154 mg/dL (<200); Estimated Glomerular Filt Rate > 60; Glucose Fasting 83 mg/dL (60-99); HDL Cholesterol 51 mg/dL (>40); LDL Cholesterol Calculated 92 mg/dL (<100); Potassium 3.8 mmol/L (3.3-5.1); Sodium 140 mmol/L (135-145); Total Protein 6.6 g/dL (6.5-8.0); Triglycerides 55 mg/dL (<150)
[2023-11-15 10:22] LABS: TSH reflex Free T4 2.62 uIU/mL (0.32-4.0)
[2023-11-15 10:26] LABS: Appearance Urine Cloudy; Color Urine Dark Yellow; Glucose Urine UA Negative (Negative); Leukocyte Esterase Urine Negative (Negative); Nitrite Urine Negative (Negative); Specific Gravity - Urine >= 1.030 (1.005-1.025); UMIC TRIGGER UACC YES; Urine Blood Negative (Negative); Urine Ketones 15 mg/dL (Negative); Urine Protein 30 (1+) mg/dL (Neg-Trace)
[2023-11-15 10:30] LABS: Bacteria Urine 2+ (None Seen); Hyaline Casts Urine 0-2 /LPF (0-2); RBC Urine 0-2 /HPF (0-2); WBC Urine 0-5 /HPF (0-5)
[2023-11-15 10:39] LABS: Rheumatoid Factor < 13.0 IU/mL (<15.0)
[2023-11-16 14:24] LABS: Anti DNA DS Antibody <1 IU/mL; Antibody to SS-A Antigen <1.0 NEG AI (<1.0 NEG); Antibody to SS-B Antigen <1.0 NEG AI (<1.0 NEG)
[2023-11-17 04:19] LABS: Thyroid Peroxidase Antibodies >900 IU/mL (<9)
[2023-11-17 06:38] LABS: A. Phagocytphilium DNA,RT-PCR NOT DETECTED (NOT DETECTED); Babesia Microti DNA, RT-PCR NOT DETECTED (NOT DETECTED); Borrelia Miyamotoi,DNA RT-PCR NOT DETECTED (NOT DETECTED); E.Chaffeensis DNA RT-PCR NOT DETECTED (NOT DETECTED); Lyme(Borrelia ssp)DNA RT-PCR NOT DETECTED (NOT DETECTED)
[2023-11-17 15:59] LABS: Cyclic Citrullinated Peptide <16 UNITS
[2023-11-22 11:33] LABS: Anti Nuclear Antibody Screen NEGATIVE (NEGATIVE)
[2023-11-22 14:24] LABS: DNAds, Crithidia Antibody Negative (Negative)
== END 2023-11-15 08:52 | disposition home or self-care (01) ==
LOC: HO.LAB 08:51
PROVIDERS: PCP Nurse Practitioner Family; Visit Provider Nurse Practitioner Family
DX: R53.83 Other fatigue (principal); R79.89 Other specified abnormal findings of blood chemistry; M54.50 Low back pain, unspecified; G89.29 Other chronic pain; M53.3 Sacrococcygeal disorders, not elsewhere classified
CPT/HCPCS: 36415; 72100; 72220; 80053; 80061; 81001; 81003; 84443; 85025; 86038; 86200; 86225; 86235; 86255; 86376; 86431; 87468; 87469; 87478; 87484; 87798

== ENCOUNTER 2023-12-07 14:48 | Outpatient (AMB) | payer OTHER, SELFPAY ==
[2023-12-07 14:49] VITALS: BP 108/76; PULSE 68; O2SAT 96; BMI 31.7
--- NOTE | 2023-12-07 14:49 | HO.NEPHOV_ITS ---
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 She has no specific complaints like dysuria urgency increased frequency. No hematuria. No edema. No fever no rash. [facility] Medical History (Updated 12/07/23 @ 14:51 by BERENICE Stover) Carpal tunnel syndrome of left wrist (~09/2023) Pain of right great toe Pain in joint involving multiple sites Arthritis H/O degenerative disc disease PTSD (post-traumatic stress disorder) Uterine fibroid History of right breast cancer Depression Anxiety Anemia Surgical History H/O colonoscopy History of lumpectomy of right breast Hx of dilation and curettage Hx of section Family History Family/Other Colon cancer Maternal Uncle Lung cancer Father Prostate CA Social History Housing: Apartment Alcohol intake: never Patient Tobacco Use Status: Never used Tobacco e-Cigarette/Vaping Use: Never Used Second Hand Smoke Exposure: No Substance Use Type: Marijuana service: No Current occupational status: unemployed 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 Current occupational exposures/hazards: No Sexual orientation: Straight/Heterosexual Gender identity: Female Cognitive needs: No Hearing needs: No Vision needs: Yes Female Reproductive History Menstrual Age of Menarche: 8 Physical Exam Vital Signs: Last Vital Signs Pulse 68 12/07/23 14:49 BP 108/76 12/07/23 14:49 Pulse Ox 96 12/07/23 14:49 Oxygen Delivery Method Room Air 12/07/23 14:49 BMI result Body Mass Index 31.7 Const General: comfortable; No acute distress Orientation/consciousness: patient oriented x3 Eyes General: appearance normal, both eyes and all related structures Visual Osorio: normal visual osorio by confrontation Neck Neck: Yes supple and Yes no JVD Resp Effort & Inspection: normal respiratory effort and respiratory effort not decreased Auscultation: rhonchi Cardio Palpation: no palpable S3 and no palpable S4 Heart sounds: no rubs GI Inspection: Yes normal to inspection Palpation (GI): Soft to palpation Percussion: Yes normal to percussion Auscultation: normal bowel sounds General: Yes no CVA tenderness Back/Spine/Pelvis Back: no CVA tenderness Skin General skin exam: no petechiae and no purpura Neuro General: patient oriented x3 and no focal motor deficits Extrem General: No clubbing and No edema Results Reviewed Nephrology Results: Hgb 12.3 g/dl (12.0-16.0) 11/15/23 WBC 4.1 X10*3/uL (4.8-10.8) L 11/15/23 Plt Count 205 X10*3/uL (160-400) 11/15/23 Sodium 140 mmol/L (135-145) 11/15/23 Potassium 3.8 mmol/L (3.3-5.1) 11/15/23 Chloride 106 mmol/L (96-108) 11/15/23 Carbon Dioxide 29 mmol/L (22-29) 11/15/23 BUN 9 mg/dL (9-16) 11/15/23 Creatinine 0.78 mg/dL (0.5-1.4) 11/15/23 Calcium 8.8 mg/dL (8.4-10.2) 11/15/23 Urine Protein 30 (1+) mg/dL (Neg-Trace) H 11/15/23 Assessment & Plan Assessment & Plan (1) Proteinuria: Code(s): R80.9 - Proteinuria, unspecified Category: Medical Plan Middle-aged woman with the essentially normal renal function with dipstick positive proteinuria. The urinalysis showed specific gravity more than 1.030. No RBCs reported. The concentrated urine can give a false positive results for protein. I will check urine for protein creatinine ratio and repeat urinalysis. Encouraged her to stay on low-sodium diet increase fluid intake. Once we quantify the proteinuria and if she has persistent proteinuria should be she would require further workup. In the past he has a extensive serological workup from Rheumatology which was essentially unremarkable. Orders: Orders Total Protein Urine Random Today Andrea Pompa MD R80.9 - Proteinuria, unspecified UA and rflx microscopic Today Andrea Pompa MD R80.9 - Proteinuria, unspecified Creatinine Urine Today Andrea Pompa MD R80.9 - Proteinuria, unspecified Medications: Changed From gabapentin 300 mg PO BID PRN To gabapentin 300 mg PO BID 60 caps 0RF 30 days Andrea Pompa MD From omeprazole 40 mg PO DAILY 30 caps 0RF To omeprazole 40 mg PO DAILY PRN Lisa Vicente NP Coding Level of Care Code New Pt Level 4 (16338) Diagnoses Proteinuria R80.9
== END 2023-12-07 15:03 | disposition home or self-care (01) ==
PROVIDERS: PCP Nurse Practitioner Family; Visit Provider Internal Medicine Hypertension Specialist
DX: R80.9 Proteinuria, unspecified (principal)
CPT/HCPCS: 99204

== ENCOUNTER 2023-12-07 14:48 | Outpatient (REF) | payer OTHER, SELFPAY ==
[2023-12-07 15:44] LABS: MANUAL DIFF FLAG NO
[2023-12-07 15:50] LABS: Basophils Absolute Auto 0.1 X10*3/uL (0.0-0.2); Basophils Percent Auto 0.8 % (0-2); Eosinophils Absolute Auto 0.2 X10*3/uL (0.0-0.4); Eosinophils Percent Auto 3.3 % (0-4); Hematocrit 44.6 % (37.0-47.0); Hemoglobin 14.5 g/dl (12.0-16.0); Imm Gran Abs Auto 0.01 X10*3/uL (0.00-0.03); Imm Gran Pct Auto 0.2 % (0.0-0.4); Lymphocytes Absolute Auto 1.5 X10*3/uL (1.2-4.9); Lymphocytes Percent Auto 23.7 % (20-40); Mean Corpuscular HGB Conc 32.5 g/dl (31.0-35.0); Mean Corpuscular Hemoglobin 27.9 pg (27.0-33.0); Mean Corpuscular Volume 85.9 fL (80.0-98.0); Mean Platelet Volume 9.1 fL (9.4-12.3); Monocytes Absolute Auto 0.4 X10*3/uL (0.1-1.2); Monocytes Percent Auto 5.9 % (2-11); Neutrophils Absolute Auto 4.1 x10*3/uL (2.0-8.3); Neutrophils Percent Auto 66.1 % (45-73); Platelet Count 235 X10*3/uL (160-400); Red Blood Count 5.19 X10*6/uL (4.20-5.50); Red Cell Distribution Width 14.9 % (11.0-16.0); White Blood Count 6.1 X10*3/uL (4.8-10.8)
[2023-12-07 16:17] LABS: Uric Acid 3.3 mg/dL (2.4-5.7)
[2023-12-07 16:23] LABS: Alanine Aminotransferase 10 U/L (0-31); Albumin Level 4.5 g/dL (3.5-5.0); Alkaline Phosphatase 70 U/L (39-117); Anion Gap 12 (12-20); Aspartate Amino Transferase 17 U/L (5-31); Bilirubin Total 0.5 mg/dL (0.0-1.0); Blood Urea Nitrogen 11 mg/dL (9-16); Carbon Dioxide 26 mmol/L (22-29); Chloride 105 mmol/L (96-108); Cholesterol 219 mg/dL (<200); Estimated Glomerular Filt Rate > 60; Glucose Fasting 96 mg/dL (60-99); HDL Cholesterol 58 mg/dL (>40); LDL Cholesterol Calculated 145 mg/dL (<100); Sodium 139 mmol/L (135-145); Total Protein 7.8 g/dL (6.5-8.0); Triglycerides 81 mg/dL (<150)
[2023-12-07 16:39] LABS: TSH reflex Free T4 4.63 uIU/mL (0.32-4.0)
[2023-12-07 17:42] LABS: Appearance Urine Clear; Color Urine Yellow; Glucose Urine UA Negative (Negative); Leukocyte Esterase Urine Negative (Negative); Nitrite Urine Negative (Negative); PH 6.5 (5.0-9.0); Urine Blood Negative (Negative); Urine Ketones Negative (Negative); Urine Protein Negative (Neg-Trace)
[2023-12-07 18:32] LABS: Creatinine Urine 49.98 mg/dL; Total Protein Urine Random < 7 mg/dL (<12)
[2023-12-07 18:37] LABS: Free T4 (Free Thyroxine) 0.89 ng/dL (0.71-1.85)
[2023-12-08 04:55] LABS: HBS Num1 72.71 mIU/mL (0-7.99); HBc Num1 0.22 S/CO (0.00-0.79); HBsAGNum1 0.52 S/CO (0.00-0.99); HIV AB/AG Nonreactive (Nonreactive); HIV Num 1 0.05 S/CO (0.00-0.99); Hepatitis A Antibody IgM 0.19 Index (0-0.79); Hepatitis B Core Antibody Nonreactive (Nonreactive); Hepatitis B Surface Antigen Negative (Negative); ~HepC Num1 0.16 S/CO (0.00-0.79); ~Hepatitis A Antibody IgM Nonreactive (Nonreactive); ~Hepatitis B Surface Antibody REACTIVE (Nonreactive); ~Hepatitis C Antibody Nonreactive (Nonreactive)
== END 2023-12-07 14:49 | disposition home or self-care (01) ==
LOC: HO.LAB 14:48
PROVIDERS: Nurse Practitioner Family; Absent Provider Nurse Practitioner Family; PCP Nurse Practitioner Family; Visit Provider Internal Medicine Hypertension Specialist
DX: Z00.00 Encounter for general adult medical examination without abnormal findings (principal); Z11.4 Encounter for screening for human immunodeficiency virus [HIV]; R80.9 Proteinuria, unspecified; M79.674 Pain in right toe(s); E78.5 Hyperlipidemia, unspecified
CPT/HCPCS: 36415; 80053; 80061; 81003; 82570; 84156; 84439; 84443; 84550; 85025; 86704; 86706; 86709; 86803; 87340; 87389; 99202

== ENCOUNTER 2024-01-04 14:40 | Outpatient (AMB) | payer OTHER, SELFPAY ==
[2024-01-04 14:39] VITALS: BP 122/72; PULSE 73; O2SAT 98; BMI 31.9
--- NOTE | 2024-01-04 14:39 | HO.NEPHOV ---
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 She has no specific complaints like dysuria urgency increased frequency. No hematuria. No edema. No fever no rash. 01/04/2024. Overall feeling okay but fatigued. She says she is urinating a lot. [facility] Medical History (Updated 12/08/23 @ 09:22 by Osito Moreno, [facility]) Degenerative joint disease of sacroiliac joint Carpal tunnel syndrome of left wrist (~09/2023) Pain of right great toe Pain in joint involving multiple sites Arthritis H/O degenerative disc disease PTSD (post-traumatic stress disorder) Uterine fibroid History of right breast cancer Depression Anxiety Anemia Surgical History H/O colonoscopy History of lumpectomy of right breast Hx of dilation and curettage Hx of section Family History Family/Other Colon cancer Maternal Uncle Lung cancer Father Prostate CA Social History Housing: Apartment Alcohol intake: never Patient Tobacco Use Status: Never used Tobacco e-Cigarette/Vaping Use: Never Used Second Hand Smoke Exposure: No Substance Use Type: Marijuana service: No Current occupational status: unemployed 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 Current occupational exposures/hazards: No Sexual orientation: Straight/Heterosexual Gender identity: Female Cognitive needs: No Hearing needs: No Vision needs: Yes Female Reproductive History Menstrual Age of Menarche: 8 Physical Exam Vital Signs: Last Vital Signs Pulse 73 01/04/24 14:39 BP 122/72 01/04/24 14:39 Pulse Ox 98 01/04/24 14:39 Oxygen Delivery Method Room Air 01/04/24 14:39 BMI result Body Mass Index 31.9 Results Reviewed Nephrology Results: Hgb 14.5 g/dl (12.0-16.0) 12/07/23 WBC 6.1 X10*3/uL (4.8-10.8) 12/07/23 Plt Count 235 X10*3/uL (160-400) 12/07/23 Sodium 139 mmol/L (135-145) 12/07/23 Potassium 4.0 mmol/L (3.3-5.1) 12/07/23 Chloride 105 mmol/L (96-108) 12/07/23 Carbon Dioxide 26 mmol/L (22-29) 12/07/23 BUN 11 mg/dL (9-16) 12/07/23 Creatinine 0.87 mg/dL (0.5-1.4) 12/07/23 Calcium 10.0 mg/dL (8.4-10.2) 12/07/23 Urine Protein Negative mg/dL (Neg-Trace) 12/07/23 Urine Creatinine 49.98 mg/dL 12/07/23 Assessment & Plan Assessment & Plan (1) Proteinuria: Code(s): R80.9 - Proteinuria, unspecified Category: Medical Plan Indu does not have any significant proteinuria. Urine protein creatinine ratio was normal. Urine dipstick was also negative for proteinuria. In the past she had a concentrated urine which showed a false positivity for protein. I do not think she needs further workup for presumed proteinuria. Renal function is normal She is complaining of polyuria therefore I will obtain a 24 urine collection to quantify the urine output. If she has polyuria we will proceed with further workup. Orders: Orders Creatinine, 24 Hr Group Today R80.9 - Proteinuria, unspecified Protein, 24 Hr Urine Group Today R80.9 - Proteinuria, unspecified Coding Level of Care Code Est Pt Level 3 (29193) Diagnoses Proteinuria R80.9
== END 2024-01-04 14:56 | disposition home or self-care (01) ==
PROVIDERS: PCP Nurse Practitioner Family; Visit Provider Internal Medicine Hypertension Specialist
DX: R80.9 Proteinuria, unspecified (principal)
CPT/HCPCS: 99213

== ENCOUNTER → 2024-01-04 14:40 | Outpatient (BNVA) | payer OTHER, SELFPAY | PROVIDERS: PCP Nurse Practitioner Family; Visit Provider Internal Medicine Hypertension Specialist | DX: R80.9 Proteinuria, unspecified (principal) | CPT/HCPCS: 99212 ==

== ENCOUNTER 2024-03-16 10:33 | Outpatient (AMB) | payer OTHER, SELFPAY ==
--- NOTE | 2024-03-16 10:37 | A.OFFPC_ITS ---
Vital Signs 03/16/24 10:38 Height 5 ft 1 in Weight 181 lb 6 oz BMI 34.3 BP 128/76 Blood Pressure Location Rt brachial Position Sitting Pulse 72 Pulse Source Pulse Oximeter Pulse Oximetry (%) 98 Oxygen Delivery Method Room Air Intake Visit Reasons: 6M F/U Allergies No Known Allergies [No Known Allergies*] Allergy (Verified 03/16/24 10:40) Medication List - Last Reconciled 03/16/24 by Kim Aguilera NP gabapentin 300 mg PO BID 30 days TENS unit and electrodes use daily for back pain venlafaxine ER 150 mg PO DAILY venlafaxine ER 75 mg PO DAILY Tobacco use date assessed: 03/16/24 Dental Screening Dental Screen Date: 03/16/24 Did you have a dental visit in the last 12 months?: Yes Did you have a dental problem in the last 6 months where you did not have access to dental care?: No Was dental information given to patient?: Patient has dentist HPI HPI Comments History of Present Illness Details 43 y/o female patient who presents to e clinic today for 6 months F/U. She is a patient of Osito Moreno. C/o Generalized Body weakness with frequent falls. Asking to be referred for Physical therapy. Pt also asking for Shower chair. C/o Chronic Lower back pain and asking for Chiropractor referral. [facility] Medical History (Updated 03/16/24 @ 12:12 by Kim Aguilera NP) Weakness generalized Degenerative joint disease of sacroiliac joint Carpal tunnel syndrome of left wrist (~09/2023) Pain of right great toe Pain in joint involving multiple sites Arthritis H/O degenerative disc disease PTSD (post-traumatic stress disorder) Uterine fibroid History of right breast cancer Depression Anxiety Anemia Surgical History H/O colonoscopy History of lumpectomy of right breast Hx of dilation and curettage Hx of section Family History Family/Other Colon cancer Maternal Uncle Lung cancer Father Prostate CA Social History Housing: Apartment Alcohol intake: never Patient Tobacco Use Status: Never used Tobacco e-Cigarette/Vaping Use: Never Used Second Hand Smoke Exposure: No Substance Use Type: Marijuana service: No Current occupational status: unemployed 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 How often do you have a drink containing alcohol?: Never 3. How often do you have six or more drinks on one occasion?: Never Total Score: 0 Score Reviewed/Action Taken: Yes RONNIE-7 AMB Questionnaire RONNIE-7 Date RONNIE - 7 assessed: 06/28/23 Source: Developed by Drs. Lacho Katz, Alexa Vargas, Fidencio Bergeron and colleagues, with an educational glen from [employer]. Review of Systems Const All systems reviewed & are unremarkable except as noted in HPI and below Physical exam (Primary Care) Vital Signs: Last Vital Signs Pulse 72 03/16/24 10:38 BP 128/76 03/16/24 10:38 Pulse Ox 98 03/16/24 10:38 Oxygen Delivery Method Room Air 03/16/24 10:38 BMI result Body Mass Index 34.3 Tobacco/Smoking Status: Tobacco use Status Tobacco use date assessed 03/16/24 03/16/24 10:41 Patient Tobacco Use Status Never used Tobacco 03/16/24 10:39 e-Cigarette/Vaping Use Never Used 03/16/24 10:39 Thrive Assessment: Date of Thrive Assessment Date Thrive assessed 12/15/23 03/16/24 10:39 Const General: comfortable and no acute distress Nutritional Appearance: obese Orientation/consciousness: patient oriented x3 Resp Effort & Inspection: normal respiratory effort and able to speak in complete sentences Auscultation: clear to auscultation bilaterally, no crackles, no rales, no rhonchi and no wheezes Cardio Heart sounds: S1 normal heart sound present and S2 normal heart sound present Neuro General: patient oriented x3 Coding Level of Care Code Est Pt Level 4 (86879) Diagnoses Dyslipidemia E78.5 Chronic right-sided low back pain with right-sided sciatica M54.41; G89.29 Back pain laterality: right Sciatica laterality: sciatica of right side Sciatica presence: with sciatica Weakness generalized R53.1 Time Spent (min) 20 Assessment & Plan Assessment & Plan (1) Dyslipidemia: Code(s): E78.5 - Hyperlipidemia, unspecified Category: Medical Plan: Lifestyle changes; weight loss and healthy diet. (2) Chronic lower back pain: Code(s): M54.50 - Low back pain, unspecified; G89.29 - Other chronic pain Category: Medical Qualifiers: Back pain laterality: right Sciatica laterality: sciatica of right side Sciatica presence: with sciatica Qualified Code(s): M54.41 - Lumbago with sciatica, right side; G89.29 - Other chronic pain Plan: Referred to PT and Chiro (3) Weakness generalized: Code(s): R53.1 - Weakness Category: Medical Plan: Referred to PT and Chiro Orders: Orders Lipid Panel Today E78.5 - Hyperlipidemia, unspecified PT Evaluation and Treatment Today G89.29 - Other chronic pain, M54.41 - Lumbago with sciatica, right side, R53.1 - Weakness Referrals Chiropractic Referral G89.29 - Other chronic pain, M54.41 - Lumbago with sciatica, right side
[2024-03-16 10:38] VITALS: BP 128/76; PULSE 72; O2SAT 98; BMI 34.3
== END 2024-03-16 12:09 | disposition home or self-care (01) ==
LOC: HO.HMCC 10:33
PROVIDERS: PCP Nurse Practitioner Family; Visit Provider Nurse Practitioner Family
DX: E78.5 Hyperlipidemia, unspecified (principal); M54.41 Lumbago with sciatica, right side; G89.29 Other chronic pain; R53.1 Weakness

== ENCOUNTER → 2024-03-16 10:33 | Outpatient (BNVA) | payer OTHER, SELFPAY | PROVIDERS: PCP Nurse Practitioner Family; Visit Provider Nurse Practitioner Family ==

== ENCOUNTER 2024-03-16 10:55 | Outpatient (REF) | payer OTHER, SELFPAY ==
[2024-03-16 13:20] LABS: Appearance Urine Turbid; Color Urine Yellow; Glucose Urine UA Negative (Negative); Leukocyte Esterase Urine Negative (Negative); Nitrite Urine Negative (Negative); PH 8.5 (5.0-9.0); Specific Gravity - Urine 1.015 (1.005-1.025); Urine Blood Negative (Negative); Urine Ketones Negative (Negative); Urine Protein Negative (Neg-Trace)
[2024-03-16 14:08] LABS: Cholesterol 205 mg/dL (<200); HDL Cholesterol 56 mg/dL (>40); LDL Cholesterol Calculated 119 mg/dL (<100); Triglycerides 152 mg/dL (<150)
== END 2024-03-16 10:56 | disposition home or self-care (01) ==
LOC: HO.HMGCLDS 10:55
PROVIDERS: PCP Nurse Practitioner Family; Visit Provider Nurse Practitioner Family
DX: R80.9 Proteinuria, unspecified (principal); E78.5 Hyperlipidemia, unspecified; M54.41 Lumbago with sciatica, right side; G89.29 Other chronic pain; M53.1 Cervicobrachial syndrome
CPT/HCPCS: 36415; 80061; 81003; 99212

== ENCOUNTER 2024-07-06 07:30 | Outpatient (AMB) | payer OTHER, SELFPAY ==
--- NOTE | 2024-07-06 07:25 | MHC.OFFVIS ---
Intake Visit Reasons: referral Allergies No Known Allergies [No Known Allergies*] Allergy (Verified 07/06/24 07:27) Medication List - Last Reconciled 07/06/24 by RITIKA Muñoz gabapentin 300 mg PO BID 30 days TENS unit and electrodes use daily for back pain venlafaxine ER 75 mg PO DAILY venlafaxine ER 150 mg PO DAILY HPI HPI referral: Details: History of Present Illness The patient is a 43-year-old female presenting with chronic lower back pain with radicular symptoms affecting the lower extremities. Prior imaging conducted in November 2023 revealed mild multilevel lumbar spondylosis and mild disc space height loss. Additionally, structural changes were noted in the sacroiliac joints, with potential separation of the coccygeal segments. Despite these findings, there have been no indicators of cauda equina syndrome. The patient's symptoms have been ongoing, requiring further evaluation and treatment. Review of Systems - Neurological: Denies signs of cauda equina. Plan The plan focuses on managing the patient's chronic lower back pain and associated radicular symptoms through the initiation of physical therapy. This intervention aims to alleviate discomfort and enhance mobility. If the patient's condition does not improve satisfactorily with physical therapy, further imaging, notably an MRI, will be considered to evaluate the sacroiliac joints and review the lumbar spine condition comprehensively. Discussion Notes I discussed with the patient the likely diagnosis of chronic lower back pain associated with lumbar spondylosis and potential sacroiliac joint involvement. We reviewed the planned management approach, which includes commencing physical therapy and considering further imaging, such as an MRI, if required. The potential benefits of this approach and the need for reassessment if symptoms persist were outlined. The patient was informed about the possible need for additional diagnostic steps if initial management does not yield the desired outcomes. Return precautions were provided, and the patient agreed to proceed with the plan. Patient Instructions - Begin physical therapy as recommended. - Monitor symptoms closely and report any significant changes. - Understand that if symptoms persist, further imaging may be necessary. - Follow the prescribed therapy regimen to optimize outcomes. - Contact the office with any questions or concerns. [facility] Medical History Weakness generalized Degenerative joint disease of sacroiliac joint Carpal tunnel syndrome of left wrist (~09/2023) Pain of right great toe Pain in joint involving multiple sites Arthritis H/O degenerative disc disease PTSD (post-traumatic stress disorder) Uterine fibroid History of right breast cancer Depression Anxiety Anemia Surgical History H/O colonoscopy History of lumpectomy of right breast Hx of dilation and curettage Hx of section Family History Family/Other Colon cancer Maternal Uncle Lung cancer Father Prostate CA Social History Housing: Apartment Alcohol intake: never Patient Tobacco Use Status: Never used Tobacco e-Cigarette/Vaping Use: Never Used Second Hand Smoke Exposure: No Substance Use Type: Marijuana service: No Current occupational status: unemployed 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 Current occupational exposures/hazards: No Sexual orientation: Straight/Heterosexual Gender identity: Female Cognitive needs: No Hearing needs: No Vision needs: Yes Female Reproductive History Menstrual Age of Menarche: 8 Assessment & Plan Assessment & Plan (1) SI (sacroiliac) joint dysfunction: Code(s): M53.3 - Sacrococcygeal disorders, not elsewhere classified Category: Medical (2) Lower back pain: Code(s): M54.50 - Low back pain, unspecified Category: Medical (3) Chronic lower back pain: Code(s): M54.50 - Low back pain, unspecified; G89.29 - Other chronic pain Category: Medical Qualifiers: Back pain laterality: right Sciatica presence: with sciatica Sciatica laterality: sciatica of right side Qualified Code(s): M54.41 - Lumbago with sciatica, right side; G89.29 - Other chronic pain Plan . Orders: Orders PT Evaluation and Treatment Today M53.3 - Sacrococcygeal disorders, not elsewhere classified, M54.50 - Low back pain, unspecified Coding Level of Care Code Tele Est Pt Level 3 (59198) Diagnoses SI (sacroiliac) joint dysfunction M53.3 Lower back pain M54.50 Chronic right-sided low back pain with right-sided sciatica M54.41; G89.29 Back pain laterality: right Sciatica presence: with sciatica Sciatica laterality: sciatica of right side
== END 2024-07-06 07:41 | disposition home or self-care (01) ==
PROVIDERS: PCP Nurse Practitioner Family; Visit Provider Nurse Practitioner Family
DX: M53.3 Sacrococcygeal disorders, not elsewhere classified (principal); M54.41 Lumbago with sciatica, right side; G89.29 Other chronic pain

== ENCOUNTER → 2024-07-06 07:30 | Outpatient (BNVA) | payer OTHER, SELFPAY | PROVIDERS: PCP Nurse Practitioner Family; Visit Provider Nurse Practitioner Family | DX: M54.50 Low back pain, unspecified (principal); M53.3 Sacrococcygeal disorders, not elsewhere classified; M54.41 Lumbago with sciatica, right side; G89.29 Other chronic pain ==

== ENCOUNTER 2024-07-10 13:25 | Outpatient (REF) | payer OTHER, SELFPAY ==
--- NOTE | ~2024-07-10 | MM_ITS ---
EXAMINATION: MM SCREENING DIGITAL BREAST TOMOSYNTHESIS, BILATERAL CLINICAL INFORMATION: Screening. Asymptomatic. COMPARISON: Mammography: Comparison is made with available priors TECHNIQUE: Digital breast mammography with tomosynthesis is performed in both the craniocaudal and mediolateral oblique views along with computer-aided detection (CAD). FINDINGS: There are scattered areas of fibroglandular density (ACR BI-RADS breast composition Category b). Right post lumpectomy changes are stable. There are no significant masses, abnormal calcifications, or other abnormalities. MM/MM tomosynthesis screening BI IMPRESSION: No mammographic evidence of malignancy. ASSESSMENT: BI-RADS BI-RADS 2 - Benign Findings RECOMMENDATION: Routine annual mammography screening. 1 year F/U This examination should not preclude the clinical evaluation of a suspicious palpable abnormality. This patient's information was entered into a reminder system with a target due date for their next mammogram. Electronically signed by: Elmira Holloway DO 07/12/2024 11:07 AM FIDENCIO
== END 2024-07-10 13:26 | disposition home or self-care (01) ==
LOC: HO.MAMMO 13:25
PROVIDERS: PCP Nurse Practitioner Family; Visit Provider Nurse Practitioner Family
DX: Z12.31 Encounter for screening mammogram for malignant neoplasm of breast (principal)
CPT/HCPCS: 77063; 77067

== ENCOUNTER → 2024-07-10 13:30 | Outpatient (BNV) | payer OTHER, SELFPAY | PROVIDERS: PCP Nurse Practitioner Family; Visit Provider Internal Medicine | DX: Z12.31 Encounter for screening mammogram for malignant neoplasm of breast (principal) | CPT/HCPCS: 77063; 77067 ==

== ENCOUNTER 2024-07-21 09:00 | Outpatient (RCR) | payer OTHER, SELFPAY ==
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
== END 2024-11-28 07:10 | disposition home or self-care (01) ==
LOC: HO.PTS 09:00
PROVIDERS: Visit Provider Nurse Practitioner Family
DX: M54.50 Low back pain, unspecified (principal); M53.3 Sacrococcygeal disorders, not elsewhere classified
CPT/HCPCS: 97110; 97140; 97161; 97535

== ENCOUNTER 2024-09-11 09:31 | Outpatient (AMB) | payer OTHER, SELFPAY ==
[2024-09-11 10:52] VITALS: BP 124/86; PULSE 67; TEMP 36.8; O2SAT 98
--- NOTE | 2024-09-11 10:52 | AM.OFFWIN_ITS ---
Intake Vital Signs 09/11/24 10:52 Weight 195 lb BP 124/86 Blood Pressure Location Lt brachial Position Sitting Pulse 67 Pulse Source Pulse Oximeter Temp 98.3 F Temp Source Oral Pulse Oximetry (%) 98 Oxygen Delivery Method Room Air Intake Visit Reasons: EP Consistent sinus congestion, ears, cough Patient Tobacco Use Status: Never used Tobacco Allergies No Known Allergies [No Known Allergies*] Allergy (Verified 09/11/24 10:53) Do you need a note to return to daycare/school/sports/work: No HPI HPI Comments History of Present Illness Details 44 y/o Female patient who presents to [facility] walk in clinic with c/o Cough, chest/sinus congestion and B/L Ear pain for few days now. Denies fevers but reports chills. Denies nausea or vomiting. [facility] Medical History (Updated 09/11/24 @ 11:19 by Kim Aguilera NP) Cough Weakness generalized Degenerative joint disease of sacroiliac joint Carpal tunnel syndrome of left wrist (~09/2023) Pain of right great toe Pain in joint involving multiple sites Arthritis H/O degenerative disc disease PTSD (post-traumatic stress disorder) Uterine fibroid History of right breast cancer Depression Anxiety Anemia Surgical History H/O colonoscopy History of lumpectomy of right breast Hx of dilation and curettage Hx of section Family History Family/Other Colon cancer Maternal Uncle Lung cancer Father Prostate CA Social History Housing: Apartment Alcohol intake: never Patient Tobacco Use Status: Never used Tobacco e-Cigarette/Vaping Use: Never Used Second Hand Smoke Exposure: No Substance Use Type: Marijuana service: No Current occupational status: unemployed 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 Current occupational exposures/hazards: No Sexual orientation: Straight/Heterosexual Gender identity: Female Cognitive needs: No Hearing needs: No Vision needs: Yes Female Reproductive History Menstrual Age of Menarche: 8 Review of Systems Const All systems reviewed & are unremarkable except as noted in HPI and below Physical Exam Vital Signs: Last Vital Signs Temp 98.3 F 09/11/24 10:52 Pulse 67 09/11/24 10:52 BP 124/86 09/11/24 10:52 Pulse Ox 98 09/11/24 10:52 Oxygen Delivery Method Room Air 09/11/24 10:52 Const General: no acute distress Nutritional Appearance: obese Orientation/consciousness: patient oriented x3 HEENT Head: Yes normocephalic Ears: external ears normal and TM abnormal bulging and with fluid behind the TM bilateral General nose exam: Abnormal mucous membranes and turbinates present boggy and Nasal discharge present Face and sinus: Yes sinus tenderness Mouth: moist mucous membranes Throat: Yes uvula midline Resp Effort & Inspection: normal respiratory effort and able to speak in complete sentences Auscultation: clear to auscultation bilaterally, no crackles, no rales, no rhonchi and no wheezes Cardio Rhythm: regular rhythm Heart sounds: S1 normal heart sound present and S2 normal heart sound present Neuro General: patient oriented x3 Assessment & Plan Assessment & Plan (1) Cough: Code(s): R05.9 - Cough, unspecified Qualifiers: Cough type: subacute Qualified Code(s): R05.2 - Subacute cough Plan: OTC Cough remedies Rest and hydrate well with warm fluids Medications: New benzonatate 200 mg (2 x 100 mg) PO BID 60 caps 0RF R05.2 - Subacute cough pseudoephedrine HCl ER (Sudafed 12 Hour) 120 mg PO Q12H 30 tabs 0RF R09.81 - Nasal congestion Coding Level of Care Code Est Pt Level 4 (64560) Diagnoses Subacute cough R05.2 Cough type: subacute Time Spent (min) 20
== END 2024-09-11 11:25 | disposition home or self-care (01) ==
PROVIDERS: PCP Nurse Practitioner Family; Visit Provider Nurse Practitioner Family
DX: R05.2 Subacute cough (principal)

== ENCOUNTER → 2024-09-11 09:31 | Outpatient (BNVA) | payer OTHER, SELFPAY | PROVIDERS: PCP Nurse Practitioner Family; Visit Provider Nurse Practitioner Family | DX: R05.2 Subacute cough (principal) | CPT/HCPCS: 99212 ==

== ENCOUNTER 2024-10-23 14:58 | Outpatient (AMB) | payer OTHER, SELFPAY ==
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
[2024-10-23 15:03] VITALS: BP 110/86; PULSE 76; RESP 16; TEMP 37.1; O2SAT 97; BMI 36.7
== END 2024-10-23 15:40 | disposition home or self-care (01) ==
LOC: HO.HMCC 14:59
PROVIDERS: PCP Nurse Practitioner Family; Visit Provider Nurse Practitioner Family
DX: Z00.00 Encounter for general adult medical examination without abnormal findings (principal); Z12.11 Encounter for screening for malignant neoplasm of colon; E55.9 Vitamin D deficiency, unspecified; L65.9 Nonscarring hair loss, unspecified; F32.9 Major depressive disorder, single episode, unspecified

== ENCOUNTER → 2024-10-23 14:58 | Outpatient (BNVA) | payer OTHER, SELFPAY | PROVIDERS: PCP Nurse Practitioner Family; Visit Provider Nurse Practitioner Family | DX: Z00.00 Encounter for general adult medical examination without abnormal findings (principal); E66.01 Morbid (severe) obesity due to excess calories; E55.9 Vitamin D deficiency, unspecified; L65.9 Nonscarring hair loss, unspecified; Z68.36 Body mass index [BMI] 36.0-36.9, adult | CPT/HCPCS: 96127; 99396 ==

== ENCOUNTER 2025-05-07 09:09 | Outpatient (AMB) | payer OTHER, SELFPAY ==
--- OUTSIDE RECORDS SUMMARY | 2025-05-02 23:59 | XMS_ITS | Continuity of Care Document ---
Author Organization [facility] Address [address] [place] [id number]- Care Team Providers Care Senior Cytogenetic Technologist Name Role Phone Josh HUTTON, Osito De La Cruz Primary Care Physician [id number] Date(s): [facility]/09[facility]25 - [facility]02/[facility] [address] [place] [address] Attending Physician: Mario Lora MD Admitting Physician: Mario Lora MD Referring Physician: Tristen Giraldo MD Encounter Type: Pre-OutPatient One Time Allergies, Adverse Reactions, Alerts No Known Allergies Medications gabapentin 300 mg oral capsule 300 mg, By Mouth, Daily, # 30 capsule, Refills 0, Tot. Refills 0, Maintenance, 03/18/23 10:14:00 AM EST, Route to Pharmacy Electronically, [facility]/pharmacy #[id number], Partial fill upon patient request if the prescription is for a schedule II opioid drug., 154.94, cm, 03/18/23 8:54:00 EST, Height, 63.7, kg, 03/11/23 12:37:00 EDT, Dry Weight Start Date: 03/18/23 Status: Ordered Medication Dispense Status: Completed Quantity: 30.0 Unit: capsule Total Allowed Fills: 1 Fills Dispensed: 0 venlafaxine 150 mg oral capsule, extended release 150 mg, By Mouth, Daily, # 30 capsule, Refills 0, Tot. Refills 0, Maintenance, 03/18/23 10:14:00 AM EST, Route to Pharmacy Electronically, [facility]/pharmacy #[id number], Partial fill upon patient request if the prescription is for a schedule II opioid drug., 154.94, cm, 03/18/23 8:54:00 EST, Height, 63.7, kg, 03/11/23 12:37:00 EDT, Dry Weight Start Date: 03/18/23 Status: Ordered Medication Dispense Status: Completed Quantity: 30.0 Unit: capsule Total Allowed Fills: 1 Fills Dispensed: 0 ZyPREXA 5 mg oral tablet 5 mg, By Mouth, Daily at bedtime, # 30 capsule, Refills 0, Tot. Refills 0, Maintenance, 03/18/23 10:14:00 AM EST, Route to Pharmacy Electronically, [facility]/pharmacy #[id number], Partial fill upon patient request if the prescription is for a schedule II opioid drug., 154.94, cm, 03/18/23 8:54:00 EST, Height, 63.7, kg, 03/11/23 12:37:00 EDT, Dry Weight Start Date: 03/18/23 Status: Ordered Medication Dispense Status: Completed Quantity: 30.0 Unit: capsule Total Allowed Fills: 1 Fills Dispensed: 0 Social History Social History Type Response Sex Sex Representation Female (finding) Patient Care team information Care Team Personnel Name: Osito Moreno NP Position: Reference Physician Member Role: PCP Address: [address] [place] [id number] Telecom: Name: Reba Becerra NP Position: [facility] Outreach Member Role: Lifetime Consulting Physician Address: [address] [place] [id number] Telecom: Care Team Related Persons Name: RHETT DUTTA Name: SHELBI CARTER Name: ENRIQUETA VALENCIA Insurance Providers Guarantor name: CECILIA HANNA Health Plan Information #: 1 Payer: [employer] Payer Identifier: [id number] Member Number: [id number] Group Number: [id number] Subscriber Identifier: [id number] Relationship to Subscriber: self Coverage Type: NA Coverage Verification Date: NA Telecom: NA Address:
[2025-05-07 10:04] VITALS: BP 128/80; PULSE 72; RESP 18; TEMP 36.6; O2SAT 97; BMI 36.8
--- NOTE | 2025-05-07 10:04 | AM.OFFWIN_ITS ---
Intake Vital Signs 05/07/25 10:04 Height 5 ft 1 in Weight 195 lb BMI 36.8 BP 128/80 Blood Pressure Location Lt brachial Position Sitting Respiration 18 Pulse 72 Pulse Source Pulse Oximeter Temp 97.9 F Temp Source Oral Pulse Oximetry (%) 97 Oxygen Delivery Method Room Air Intake Visit Reasons: EP Pain in both feet, Pain in pelvic area Intake Note: Pt is here for throbbing pain on rt side of pelvic area, pt mention pain started 4 days ago. Patient Tobacco Use Status: Never used Tobacco Is last menstrual period known: No Patient : No Allergies No Known Allergies (No Known Allergies*) Allergy (Verified 05/07/25 10:05) Do you need a note to return to daycare/school/sports/work: No HPI HPI Comments History of Present Illness Details This is a 44-year-old female with a past medical history of depression and an abdominal surgical history of lapband only presenting for evaluation of right lower quadrant abdominal pain. Patient states that the pain started 4 days ago and has been increasing in nature. She describes the pain as a throbbing sensation. She denies having any fevers, chills, nausea, vomiting, dysuria, urinary frequency or hematuria. Patient states she will also occasionally have pain on the right side of her low back. She has not taken any medication for treatment of her discomfort. Patient also denies any recent injury or trauma preceding the onset of her symptoms. [facility] Medical History Cough Weakness generalized Degenerative joint disease of sacroiliac joint Carpal tunnel syndrome of left wrist (~09/2023) Pain of right great toe Pain in joint involving multiple sites Arthritis H/O degenerative disc disease PTSD (post-traumatic stress disorder) Uterine fibroid History of right breast cancer Depression Anxiety Anemia Surgical History H/O colonoscopy History of lumpectomy of right breast Hx of dilation and curettage Hx of section Family History Family/Other Colon cancer Maternal Uncle Lung cancer Father Prostate CA Social History Housing: Apartment Alcohol intake: never Patient Tobacco Use Status: Never used Tobacco e-Cigarette/Vaping Use: Never Used Second Hand Smoke Exposure: No Substance Use Type: Marijuana Patient : No service: No Current occupational status: unemployed 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 Current occupational exposures/hazards: No Sexual orientation: Straight/Heterosexual Gender identity: Female Cognitive needs: No Hearing needs: No Vision needs: Yes Female Reproductive History Menstrual Age of Menarche: 8 Review of Systems Const All systems reviewed & are unremarkable except as noted in HPI and below Reports as per HPI, Reports no additional complaints, Denies chills, Denies fever(s) and Denies lethargy Card Denies chest pain and Denies rapid heart rate Resp Denies no additional complaints GI Reports abdominal pain (RLQ), Denies belching, Denies melena, Denies change in bowel habits, Denies loose stools, Denies nausea and Denies vomiting Denies hematuria, Denies difficulty voiding, Denies dysuria and Denies vaginal discharge Musc Reports no additional complaints Skin/Breast Reports system reviewed and no additional complaints, except as documented Neuro Reports no additional complaints Psych Reports no additional complaints Endo Reports no additional complaints Conner/Lymph Reports no additional complaints Physical Exam Vital Signs: Last Vital Signs Temp 97.9 F 05/07/25 10:04 Pulse 72 05/07/25 10:04 Resp 18 05/07/25 10:04 BP 128/80 05/07/25 10:04 Pulse Ox 97 05/07/25 10:04 Oxygen Delivery Method Room Air 05/07/25 10:04 BMI result Body Mass Index 36.8 Patient is afebrile. Const General: cooperative, healthy appearing, comfortable and no acute distress; No ill appearing Nutritional Appearance: overweight Orientation/consciousness: patient oriented x3 Limitations: no limitations Cardio Rate: regular rate Rhythm: regular rhythm GI Inspection: Yes normal to inspection, No abdominal wall ecchymosis, No Abdominal wall edema and No distended Palpation (GI): Soft to palpation, Tenderness to palpation present (GI) in the RLQ; not periumbilically and not suprapubicly, Guarding due to palpation present (GI) in the RLQ, not rigid and No Rebound tenderness present Auscultation: normal bowel sounds General: Yes Bimanual renal exam normal bilaterally, Yes bladder normal to palpation and Yes no CVA tenderness Bimanual exam- vagina & uterus: bladder normal to palpation Back/Spine/Pelvis Back: no CVA tenderness Skin General skin exam: no rashes or lesions noted Neuro General: patient oriented x3 Psych Appearance: grossly normal Mental Status: mental status grossly normal Insight: Good insight present (Psych) Judgement: Good judgement present (Psych) Assessment & Plan Assessment & Plan (1) RLQ abdominal pain: Comment: Patient presents with focal right lower quadrant abdominal pain. Patient is afebrile and this finding could be consistent with an ovarian cyst, nephrolithiasis or acute UTI however appendicitis must be ruled out and patient will be referred to the emergency department. Code(s): R10.31 - Right lower quadrant pain Plan: Patient was brought to urgent care by her niece and she elects to go via private vehicle to the [facility] for ongoing evaluation and care. Expect is called to [facility] Alvarez at 10:45 a.m.. Coding Level of Care Code Est Pt Level 3 (26968) Diagnoses RLQ abdominal pain R10.31 Time Spent (min) 20
== END 2025-05-07 11:01 | disposition home or self-care (01) ==
PROVIDERS: PCP Nurse Practitioner Family; Visit Provider Physician Assistant
DX: R10.31 Right lower quadrant pain (principal)

== ENCOUNTER → 2025-05-07 09:09 | Outpatient (BNVA) | payer OTHER, SELFPAY | PROVIDERS: PCP Nurse Practitioner Family; Visit Provider Physician Assistant | DX: R10.31 Right lower quadrant pain (principal) | CPT/HCPCS: 99212 ==

== ENCOUNTER 2025-05-07 11:18 | Emergency (ER) | payer OTHER, SELFPAY ==
--- NOTE | ~2025-05-07 | CT_ITS ---
CLINICAL HISTORY: right flank pain Exam: Unenhanced CT abdomen and pelvis with multiplanar reformats. Comparison: 12/05/2022. Findings: CT abdomen: Lung bases are clear. Liver is free of gross focal lesions and ductal dilatation. Gallbladder is unremarkable. Spleen is unremarkable. Pancreas appears unremarkable. Adrenal glands are unremarkable. Kidneys appear unremarkable. No urolithiasis or hydroureteronephrosis. No free intraperitoneal fluid or retroperitoneal masses or adenopathy. Abdominal aorta is normal caliber. Bowel loops reveal no abnormal wall thickening or distention. The appendix is unremarkable. Lap band hardware is present, in stable good alignment. CT pelvis: Uterus and adnexal structures appear unremarkable. Urinary bladder is free of gross filling defects. No pelvic masses, fluid or adenopathy. Osseous structures reveal no destructive osseous lesions. Impression: 1. No acute abnormality or CT explanation for reported history of right flank pain. Specifically, no urolithiasis or hydroureteronephrosis. This document has been electronically signed by: Finn Kirkland MD on 05/07/2025 19:15:31
[2025-05-07 11:39] VITALS: BP 126/81; PULSE 81; RESP 16; TEMP 36.6; O2SAT 98; BMI 36.2
--- NOTE | 2025-05-07 11:39 | ED_ITS ---
HPI - General Adult General Chief complaint: Abdominal Pain Stated complaint: Lower ABD Pain,Hard Time Eating/ Keeping Food Down Time Seen by Provider: 05/07/25 17:05 Source: patient, RN notes reviewed and old records reviewed Mode of arrival: ambulatory Limitations: no limitations History of Present Illness ED Provider: Dexter LOBO narrative: 44-year-old female presents for evaluation of nausea, vomiting She also endorses frequent urination but denies blood in the urine. Her symptoms started 3 days ago Denies any fevers or chills pain She is status post gastric band placement Denies any other abdominal surgeries Denies any fevers or chills pain Denies any recent travel or antibiotic use Related Data Previous Rx's ?Medication ?Instructions ?Recorded TENS unit and electrodes combo pack #1 ea 07/20/22 gabapentin 300 mg capsule 300 mg PO BID 30 days #60 ca ps 12/07/23 cane #1 ea 10/23/24 shower chair with backrest #1 ea 01/25/25 venlafaxine 150 mg 150 mg PO DAILY #90 caps capsule,extended release 24 hr venlafaxine 75 mg capsule,extended 75 mg PO DAILY #90 caps 03/06/25 release 24 hr Allergies Allergy/AdvReac Type Severity Reaction Status Date / Time No Known Allergies (No Known Allergy Verified 05/07/25 11:42 Allergies*) Review of Systems 2 Constitutional: Constitutional: Denies body ache(s), Denies chills, Denies fever(s) and Denies headache(s) Eyes: Eyes: Denies blurry vision ENT: Denies dizziness and Denies headache(s) Cardiovascular: Cardiovascular: Denies chest pain, Denies chest pain at rest and Denies dyspnea on exertion Respiratory: Respiratory: Denies cough and Denies dyspnea on exertion Gastrointestinal: Gastrointestinal: Reports abdominal pain, Denies constipation, Denies GI cramping, Denies dyspepsia, Reports nausea and Reports vomiting Musculoskeletal: Musculoskeletal: Denies back pain Integumentary/Breasts: Skin/Breast: Denies rash Neurologic: Denies dizziness and Denies headache(s) [facility] Past Medical History Medical History Cough Weakness generalized Degenerative joint disease of sacroiliac joint Carpal tunnel syndrome of left wrist (~09/2023) Pain of right great toe Pain in joint involving multiple sites Arthritis H/O degenerative disc disease PTSD (post-traumatic stress disorder) Uterine fibroid History of right breast cancer Depression Anxiety Anemia Surgical History H/O colonoscopy History of lumpectomy of right breast Hx of dilation and curettage Hx of section Family History Family History Family/Other Colon cancer Maternal Uncle Lung cancer Father Prostate CA Social History Social History Housing: Apartment Alcohol intake: never Patient Tobacco Use Status: Never used Tobacco e-Cigarette/Vaping Use: Never Used Second Hand Smoke Exposure: No Substance Use Type: Marijuana Advance Directives: No Advance Directives Information Provided: No Do you have a plan to hurt others: No Plan service: No Current occupational status: unemployed 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 Current occupational exposures/hazards: No Sexual orientation: Straight/Heterosexual Gender identity: Female Cognitive needs: No Hearing needs: No Vision needs: Yes Physical Exam ED Vital Signs: Vital Signs - 24 hr 05/07/25 11:39 05/07/25 19:16 Temperature 98 F 98.1 F Pulse Rate 81 78 Respiratory Rate 16 18 Blood Pressure 126/81 128/80 Pulse Oximetry 98 98 Oxygen Delivery Method Room Air Room Air BMI result Body Mass Index 36.2 Const General: healthy appearing, comfortable, no acute distress, alert and awake Nutritional Appearance: well nourished Orientation/consciousness: patient oriented x3 HENMT Head: Yes normocephalic and Yes atraumatic Eyes Eyelids: Yes eyelids normal Conjunctivae: conjunctivae normal Sclerae: sclerae normal Corneas: corneas normal Pupils: Equal, round and reactive pupils present EOM: EOMs intact bilaterally Neck Neck: Yes full ROM Resp Effort & Inspection: normal respiratory effort, able to speak in complete sentences and not labored Cardio Rate: regular rate Rhythm: regular rhythm GI Inspection: No distended Palpation (GI): Soft to palpation, not firm, Tenderness to palpation present (GI) in the RLQ; not in the epigastrum, not in the LLQ, not in the LUQ and not in the RUQ, Guarding due to palpation present (GI) in the RLQ; not in the LLQ, not in the LUQ and not in the RUQ and not rigid Auscultation: normoactive bowel sounds Skin General skin exam: no rashes or lesions noted and elasticity normal Neuro General: patient oriented x3 Cranial nerves: Yes Equal, round and reactive pupils present and Yes Bilaterally intact EOM present Cognition (Neuro): normal cognition Extrem Other: Moving all extremities well without any obvious deformities Course Course Course Narrative: Rapid medical examination performed in triage by Delia Sierra PA-C: Patient is a 44 year old female presenting to the emergency department with abdominal pain. Detailed physical exam and review of systems are deferred to the spacecraft systems engineer. Labs and swabs ordered. Patient placed back in the waiting room pending room availability and results. Medical Decision Making Medical Decision Making MDM Narrative: 44-year-old female presents for evaluation of 4 days of right lower abdominal pain. She also endorses increased urination. Denies any history of kidney stones or blood in the urine. The differentials large ranging from acute appendicitis, constipation, obstructive uropathy, inguinal hernia, less likely bowel obstruction. The patient's screening labs show no significant leukocytosis or left shift. Chemistries within normal limits. LFTs within normal limits. Plan for a CT scan of the abdomen pelvis. Differential Diagnosis Differential Diagnoses: The differential diagnosis associated with the presentation includes As above Lab Data MDM Lab Attestation statement: I reviewed the patient's lab results. As above. Urinalysis is clear 05/07/25 13:08 05/07/25 13:08 Labs: Lab Results 05/07/25 05/07/25 Range/Units 13:08 18:39 WBC 5.5 (4.8-10.8) X10*3/uL RBC 4.68 (4.20-5.50) X10*6/uL Hgb 13.0 (12.0-16.0) g/dl Hct 40.3 (37.0-47.0) % MCV 86.1 (80.0-98.0) fL MCH 27.8 (27.0-33.0) pg MCHC 32.3 (31.0-35.0) g/dl RDW 13.5 (11.0-16.0) % Plt Count 203 (160-400) X10*3/uL MPV 8.8 L (9.4-12.3) fL Immature Gran % (Auto) 0.4 (0.0-0.4) % Neut % (Auto) 64.6 (45-73) % Lymph % (Auto) 26.3 (20-40) % [place] % (Auto) 5.1 (2-11) % Eos % (Auto) 3.1 (0-4) % Baso % (Auto) 0.5 (0-2) % Lymph # (Auto) 1.4 (1.2-4.9) X10*3/uL [place] # (Auto) 0.3 (0.1-1.2) X10*3/uL Eos # (Auto) 0.2 (0.0-0.4) X10*3/uL Baso # (Auto) 0.0 (0.0-0.2) X10*3/uL Abs Immat Gran (auto) 0.02 (0.00-0.03) X10*3/uL Absolute Neuts (auto) 3.5 (2.0-8.3) x10*3/uL Absolute Nucleated RBC 0.000 (0.0-0.012) X10*3/uL Nucleated RBC % (auto) 0.0 (0.0-0.2) /100WBC Sodium 141 (135-145) mmol/L Potassium 4.8 (3.3-5.1) mmol/L Chloride 106 (96-108) mmol/L Carbon Dioxide 31 H (22-29) mmol/L Anion Gap 9 L (12-20) BUN 12 (9-16) mg/dL Creatinine 0.87 (0.5-1.4) mg/dL Estim Creat Clear Calc 81.8 Estimated GFR > 60 Random Glucose 99 (60-115) mg/dL Calcium 9.0 D (8.4-10.2) mg/dL Magnesium 2.2 (1.6-2.6) mg/dL Total Bilirubin 0.3 (0.0-1.0) mg/dL AST 24 (5-31) U/L ALT 14 (0-31) U/L Alkaline Phosphatase 77 (39-117) U/L Total Protein 7.1 (6.5-8.0) g/dL Albumin 4.0 (3.5-5.0) g/dL Beta HCG, Quant 3 mIU/mL Urine Color Yellow Urine Appearance Clear Urine pH 7.0 (5.0-9.0) Ur Specific [place] 1.020 (1.005-1.025) Urine Protein Negative (Neg-Trace) mg/dL Urine Glucose (UA) Negative (Negative) mg/dL Urine Ketones Trace (Negative) mg/dL Urine Blood Negative (Negative) Urine Nitrite Negative (Negative) Ur Leukocyte Esterase Negative (Negative) Influenza Type A (PCR) NEGATIVE (Negative) Influenza Type B (PCR) NEGATIVE (Negative) RSV RNA Qual (PCR) NEGATIVE (Negative) SARS-CoV-2 RNA (RT-PCR) NEGATIVE (Negative) Radiology Impression Discussion of test interpretation with radiology: I have reviewed the radiologist's reading. Radiologist Impression: Findings: CT abdomen: Lung bases are clear. Liver is free of gross focal lesions and ductal dilatation. Gallbladder is unremarkable. Spleen is unremarkable. Pancreas appears unremarkable. Adrenal glands are unremarkable. Kidneys appear unremarkable. No urolithiasis or hydroureteronephrosis. No free intraperitoneal fluid or retroperitoneal masses or adenopathy. Abdominal aorta is normal caliber. Bowel loops reveal no abnormal wall thickening or distention. The appendix is unremarkable. Lap band hardware is present, in stable good alignment. CT pelvis: Uterus and adnexal structures appear unremarkable. Urinary bladder is free of gross filling defects. No pelvic masses, fluid or adenopathy. Osseous structures reveal no destructive osseous lesions. Impression: 1. No acute abnormality or CT explanation for reported history of right flank pain. Specifically, no urolithiasis or hydroureteronephrosis. This document has been electronically signed by: Finn Kirkland MD on 05/07/2025 19:15:31 Discharge Plan Discharge Clinical Impression: Abdominal pain Patient Disposition: Home, Self-Care Instructions: Abdominal Pain (ED) Additional Instructions: Your workup in the ER today was reassuring. This includes your labs, your urinalysis in your CT scan of the abdomen pelvis. Your pain may be related to a muscle strain. Follow up with your primary doctor, return for new or worsening symptoms Prescriptions: No Action (DME) TENS unit and electrodes Combo Pack See Rx Instructions .Route Qty: 1 0RF Rx Instructions: use daily for back pain (DME) shower chair with backrest See Rx Instructions .Route .MEDSUPPLY Qty: 1 0RF Rx Instructions: As directed venlafaxine 150 mg capsule,extended release 24hr 150 mg PO DAILY Qty: 90 1RF venlafaxine 75 mg capsule,extended release 24hr 75 mg PO DAILY Qty: 90 1RF (DME) cane Device See Rx Instructions .Route Qty: 1 0RF Rx Instructions: USE daily, for joint pains gabapentin 300 mg capsule 300 mg PO BID 30 Days Qty: 60 0RF Print Language: Latvian
[2025-05-07 13:22] LABS: MANUAL DIFF FLAG NO
[2025-05-07 13:24] LABS: Hematocrit 40.3 % (37.0-47.0); Hemoglobin 13.0 g/dl (12.0-16.0); Imm Gran Abs Auto 0.02 X10*3/uL (0.00-0.03); Imm Gran Pct Auto 0.4 % (0.0-0.4); Lymphocytes Absolute Auto 1.4 X10*3/uL (1.2-4.9); Mean Corpuscular HGB Conc 32.3 g/dl (31.0-35.0); Mean Corpuscular Hemoglobin 27.8 pg (27.0-33.0); Mean Corpuscular Volume 86.1 fL (80.0-98.0); NRBC Abs Auto 0.000 X10*3/uL (0.0-0.012); NRBC Pct Auto 0.0 /100WBC (0.0-0.2); Platelet Count 203 X10*3/uL (160-400); Red Blood Count 4.68 X10*6/uL (4.20-5.50); White Blood Count 5.5 X10*3/uL (4.8-10.8)
[2025-05-07 13:38] LABS: Alanine Aminotransferase 14 U/L (0-31); Albumin Level 4.0 g/dL (3.5-5.0); Alkaline Phosphatase 77 U/L (39-117); Anion Gap 9 (12-20); Aspartate Amino Transferase 24 U/L (5-31); Blood Urea Nitrogen 12 mg/dL (9-16); Calcium 9.0 mg/dL (8.4-10.2); Carbon Dioxide 31 mmol/L (22-29); Chloride 106 mmol/L (96-108); Creatinine Clr Calc Pharmacy 81.8; Estimated Glomerular Filt Rate > 60; Magnesium 2.2 mg/dL (1.6-2.6); Potassium 4.8 mmol/L (3.3-5.1); Sodium 141 mmol/L (135-145); Total Protein 7.1 g/dL (6.5-8.0)
[2025-05-07 14:20] LABS: Resp Syncy Virus RNA Qual PCR NEGATIVE (Negative); SARS COV2 PCR INHOUSE NEGATIVE (Negative)
[2025-05-07 18:49] LABS: Appearance Urine Clear; Glucose Urine UA Negative (Negative); PH 7.0 (5.0-9.0); Specific Gravity - Urine 1.020 (1.005-1.025)
[2025-05-07 19:16] VITALS: BP 128/80; PULSE 78; RESP 18; TEMP 36.7; O2SAT 98
[2025-05-07 19:37] VITALS: BP 128/80; PULSE 78; RESP 18; TEMP 36.7; O2SAT 98
== END 2025-05-07 19:38 | disposition home or self-care (01) ==
PROVIDERS: Physician Assistant; Physician Assistant Medical; Emergency Provider Emergency Medicine; PCP Nurse Practitioner Family
DX: R10.23 Pelvic and perineal pain bilateral (principal); R35.0 Frequency of micturition; R10.31 Right lower quadrant pain; Z03.818 Encounter for observation for suspected exposure to other biological agents ruled out; Z98.84 Bariatric surgery status
CPT/HCPCS: 74176; 80053; 81003; 83735; 84702; 85025; 87637; 99283

== ENCOUNTER → 2025-05-07 17:22 | Outpatient (BNV) | payer OTHER, SELFPAY | PROVIDERS: Emergency Provider Emergency Medicine; PCP Nurse Practitioner Family; Visit Provider Radiology Diagnostic Radiology | DX: R10.A1 Flank pain, right side (principal) | CPT/HCPCS: 74176 ==